=== PATIENT | female | born 1995 | race Caucasian/White ===

== ENCOUNTER → 2018-01-07 10:40 | Outpatient (CLI) | payer OTHER, SELFPAY ==
--- NOTE | 2018-01-07 10:42 | US_ITS ---
STUDY: ULTRASOUND - URINARY BLADDER REASON FOR EXAM: Female, 22 years old. Hematuria. Burning with urination. TECHNIQUE: Ultrasound evaluation of the urinary bladder was performed with real-time and static benitez-scale imaging. COMPARISON: None. FINDINGS: There is no right UVJ calculus. There is a visualized right ureteral jet. There is no left UVJ calculus. There is a visualized left ureteral jet. The distended volume of the urinary bladder is 352.3 ml. The empty volume of the urinary bladder is 28.2 ml. The bladder wall is within normal limits. The bladder wall measures . There is no demonstrated bladder wall mass lesion. There are no demonstrated bladder calculi. US/Post Void Residual Bladder IMPRESSION: Normal ultrasound of the urinary bladder. Electronically Signed: Crispin Beth MD at 16:04 EST Tel [phone], Service support ,
== END ==
PROVIDERS: Family Provider Family Medicine; PCP Family Medicine; Visit Provider Urology
DX: R30.0 Dysuria (principal); R31.9 Hematuria, unspecified
CPT/HCPCS: 51798

== ENCOUNTER → 2018-06-11 17:06 | Outpatient (CLI) | payer OTHER, SELFPAY ==
[2018-06-11 18:04] LABS: Fetal Fibronectin Negative
== END ==
PROVIDERS: Family Provider Family Medicine; PCP Family Medicine; Visit Provider Advanced Practice Midwife
DX: O26.892 Other specified pregnancy related conditions, second trimester (principal); N89.8 Other specified noninflammatory disorders of vagina; O47.9 False labor, unspecified; Z3A.00 Weeks of gestation of pregnancy not specified
CPT/HCPCS: 82731

== ENCOUNTER 2018-08-29 05:14 | Inpatient (IN) | payer OTHER, SELFPAY ==
[2018-08-29] VITALS (25 sets, daily range): BP systolic 80–126; BP diastolic 37–74; PULSE 70–97; RESP 14–20; TEMP 36.1–36.9; O2SAT 98–100; BMI 30.4
[2018-08-29] MEDS: Lactated Ringers 1,000 ML 999 ML IV ×2 (05:30→10:40)
[2018-08-29 06:37] LABS: Absolute Lymphocyte Count 2.13 X10^3/ul (0.83-4.51); Absolute Neutrophil Count 8.5 X10^3/uL (2.0-7.7); Basophil# 0.02 X10^3/uL; Basophil% 0.2 % (0-1); Differential Indicated SCAN CRITERIA MET; Eosinophil# 0.23 X10^3/uL; Eosinophils% 1.9 % (0-5); Hematocrit 32.9 % (37-47); Hemoglobin 11.3 g/dl (12.0-15.0); Lymphocyte # 2.13 X10^3/ul (4.0); Mean Corp Hgb Conc 34.3 g/gl (32-36); Mean Corpuscular Hgb 30.5 pg (27.0-32.0); Mean Corpuscular Volume 88.7 fL (81-99); Mean Platelet Vol. 8.6 fl (6.2-12.0); Monocyte# 0.86 X10^3/uL; Monocyte% 7.3 % (0-10); Neutrophil # 8.46 X10^3/uL (2.7-7.7); Neutrophil % 71.3 % (47-70); POSITIVE COUNT NO; POSITIVE DIFFERENTIAL NO; POSITIVE MORPHOLOGY YES; Platelet Count 200 K/mm3 (150-450); RBC Distribution Width CV 13.3 % (11.6-14.6); RBC Distribution Width SD 41.1 fl (35.1-43.9); Red Blood Count 3.71 M/mm3 (4.2-5.4); White Blood Count 11.9 K/mm3 (4.4-11.0)
[2018-08-29 06:38] LABS: Platelet Estimate ADEQUATE (ADEQ); Red Cell Morphology NORM C+C NORMAL (NORM C&C)
[2018-08-29] MEDS: Lactated Ringers 1,000 ML 150 ML IV (06:55)
[2018-08-29] MEDS: Sodium Citrate/Citric Acid 30 ML UDC PO (07:42)
[2018-08-29] MEDS: Cefazolin 2 GM in 0.9% Normal Saline 100 ML IV (07:55)
[2018-08-29] MEDS: Oxytocin 30 units/NS 500 ml 30 UNITS/500 ML IV.SOLN 167 UNITS IV (08:18)
--- NOTE | 2018-08-29 09:20 | OP.PCM_ITS ---
Delivery Classification: Scheduled Final CLAUS: 09/05/18 Gestational age: 39 Weeks and 0 Days Indications for : Breech Description of Procedure: Patient taken to OR where spinal anesthesia was placed. She was prepped and draped in normal sterile fashion in a dorsal lithotomy position with a leftward tilt. After ensuring adequacy of anesthesia the Pfannensteil skin incision was made and carried through to the underlying fascia with a bovie. The fascia was incised in the midline and carried laterally with the Rodriguez scissors. The rectus muscles were in the midline and the peritoneum was entered bluntly. The bladder flap was dissected down carefully with the Metzenbaum scissors and blunt dissection. The uterus was incised in a transverse fashion and then incision extended with cephalocaudad traction. The fetus was breech. Her buttocks were grasped and elevated to the uterine incision. She was delivered with typical breech maneuvers. The 3VC cord was clamped and cut after 30 second delay and the handed off to the waiting RN. The placenta was delivered w/ gentle traction and fundal massage and the uterus was exteriorized and cleared of all clots and debris. The uterine incision was closed with 1 vicryl suture in a running locked fashion. The bovie was used to further obtain further hemostasis of the uterine incision. A second imbricating layer of monocryl was placed. The uterus was returned to the peritoneal cavity. The pelvis was irrigated & then cleared of all clots and debris. The uterine incision was reexamined and found to be hemostatic. Some anuj was placed over the uterine incision due to the denuded areas. The parietal peritoneum was reapproximated with running 3 vicryl suture. The fascia was closed with looped PDS suture in a running standard fashion. The subcutaneous tissue was examined & any bleeding bovie cauterized. The subcutaneous tissue was reapproximated with plain gut suture. The skin was closed in a subcuticular fashion by the DEVELOPMENT ADMINISTRATOR with me present in the labor and delivery suite. I performed the remainder of the procedure w/ assistance. Amniotic Membrane Rupture Type: Artificial Amniotic Fluid Description: Clear Placenta Disposition: [facility] Drain: Benson to straight drain Cord Entanglement: None Nuchal Cord Compression: Without compression Cord Vessel Description: 3 Vessels Esitmated Blood Loss (ml): 600ml Gender: Female (1 minute): 6 (5 minute): 9 Delayed cord clamping: Yes Pre-op Antibiotic Given: Ancef 2 grams IV x1 Complications: None
[2018-08-29] MEDS: Methylergonovine 0.2 MG/ML Ampul IM (10:15)
[2018-08-29] MEDS: miSOPROStol 200 MCG Tablet 1000 MCG RECTAL (10:40)
[2018-08-29 10:58] LABS: Hematocrit 31.6 % (37-47); Hemoglobin 10.7 g/dl (12.0-15.0); Mean Corp Hgb Conc 33.9 g/gl (32-36); Mean Corpuscular Hgb 30.3 pg (27.0-32.0); Mean Corpuscular Volume 89.5 fL (81-99); Mean Platelet Vol. 8.8 fl (6.2-12.0); Platelet Count 212 K/mm3 (150-450); RBC Distribution Width CV 13.2 % (11.6-14.6); RBC Distribution Width SD 41.8 fl (35.1-43.9); Red Blood Count 3.53 M/mm3 (4.2-5.4); White Blood Count 14.1 K/mm3 (4.4-11.0)
[2018-08-29 11:02] LABS: Prothrombin Time (Protime)PT. 13.1 SECONDS (11.7-14.9); Scan Indicated on CBC? Y/N NO
[2018-08-29 11:03] LABS: Partial Thromboplast Time 26.2 Seconds (24.1-36.2)
--- NOTE | 2018-08-29 11:13 | PCM.PN.BLA ---
Progress Note Called by RN as patient was hypotensive with SBP in 90's, HR increasing, pt with symptoms of anemia. RN reported boggy uterus at U-2 with increased bleeding, and had given 1 dose of Methergine. Discussed with RN to draw stat CBC and coags, place Cytotec 1000mcg rectally, and run double concentrated pitocin. At bedside to examine pt. S: She reports lightheadedness and dizziness. She otherwise feels okay and has no specific complaints at this time O: VS- HR 101, BP 101/50, RN cycling BP's Gen- Pale appearing, comfortable Abd- Soft, ATTP, FF@U-2 - Scant dark red bleeding with fundal massage A/P: Fundus now firm and bleeding scant. Patient is pale appearing and with symptoms of anemia, will await results of stat blood draw. BP improving. Will continue to cycle BP's. Pt is okay with receiving a blood transfusion if needed/Hgb < 7. Discussed risks of a blood transfusion including allergic reactions, HIV and hepatitis infection
[2018-08-29] MEDS: Ketorolac 30 MG/ML Syringe IV ×2 (13:39→19:25)
[2018-08-29] MEDS: Lactated Ringers 1,000 ML 100 ML IV (14:43)
[2018-08-29] MEDS: 0.9% Saline Lock 10 ML Syringe IV (19:25)
[2018-08-30] VITALS (8 sets, daily range): BP systolic 113–121; BP diastolic 52–61; PULSE 62–85; RESP 16–22; TEMP 36.3–36.8; O2SAT 98–100
[2018-08-30] MEDS: Ketorolac 30 MG/ML Syringe IV ×4 (01:12→19:57)
[2018-08-30] MEDS: Lactated Ringers 1,000 ML 100 ML IV (01:13)
--- NOTE | 2018-08-30 07:23 | PCM.PN.OB ---
Subjective: Patient doing well this morning. She ambulated some in the room yesterday without difficulty. Tolerating regular diet without nausea and vomiting. Denies current fevers, chills, chest pain, shortness of breath, and leg pain. She is breast-feeding. Lochia normal. Her lightheadedness and dizziness have resolved. She feels she has to have a bowel movement this morning. Stokes in place. - Physical Exam General: Alert, Oriented x3 HEENT: Atraumatic Lungs: - - No increased resp effort Abdomen: Soft, - - ATTP, FF@U-2, dressing in place with scant shadowing and no surrounding swelling or erythema Extremities: No Calf Tenderness Skin: No rashes Neurological: Neuro grossly intact Psych/Mental Status: Normal Affect, Appropriate Vital Signs Temp Pulse Resp BP Pulse Ox 98.1 F 76 18 121/59 H 100 08/30/18 01:00 08/30/18 01:00 08/30/18 01:00 08/30/18 01:00 08/30/18 01:00 Oxygen Delivery Method Room Air Weight: 183 lb Body Mass Index (BMI) 30.4 Intake and Output for Last 24 Hours 08/28/18 08/29/18 08/30/18 23:59 23:59 23:59 Intake Total 1502 / 1502 Output Total 600 / 600 Balance 902 / 902 Laboratory Tests Past 24 Hrs 08/29/18 08/29/18 10:45 10:45 WBC 14.1 H RBC 3.53 L Hgb 10.7 L Hct 31.6 L MCV 89.5 MCH 30.3 MCHC 33.9 RDW 13.2 RDW Differential 41.8 Plt Count 212 MPV 8.8 PT 13.1 INR 1.0 APTT 26.2 Medical Necessity - Tobacco Use Smoking Status: Former smoker Assessment/Plan Patient is postop day #1 from a section. She is afebrile and vital signs are stable. Doing well. Hemoglobin was stable yesterday, and her lightheadedness and dizziness have resolved. She is breast-feeding. To d/c stokes this morning and encourage ambulation. Continue routine postoperative care.
[2018-08-30] MEDS: 0.9% Saline Lock 10 ML Syringe IV ×3 (08:05→19:58)
[2018-08-30 08:16] LABS: Hematocrit 27.5 % (37-47); Hemoglobin 9.3 g/dl (12.0-15.0); Mean Corp Hgb Conc 33.8 g/gl (32-36); Mean Corpuscular Hgb 30.2 pg (27.0-32.0); Mean Corpuscular Volume 89.3 fL (81-99); Mean Platelet Vol. 8.3 fl (6.2-12.0); Platelet Count 138 K/mm3 (150-450); RBC Distribution Width CV 13.7 % (11.6-14.6); RBC Distribution Width SD 44.4 fl (35.1-43.9); Red Blood Count 3.08 M/mm3 (4.2-5.4); White Blood Count 9.8 K/mm3 (4.4-11.0)
[2018-08-30 08:27] LABS: Scan Indicated on CBC? Y/N NO
--- NOTE | 2018-08-30 08:40 | NURSING ---
Patient called nurse to room requesting to get up to bathroom. Feeling to urge for first BM after delivery. Nurse assisted patient to the bathroom. After a few minutes patient c/o feeling weak and dizzy, wanting some juice before returning to bed. States this feeling happens a lot at home when she needs to eat. Apple & orange juice given. Pt also ate jello. Second Nurse, Nicole Galeano RN, called to assist getting patient returned to bed. Vitals checked and normal for patient. BP 114/53 which was consistent with her normal. Pt ordered breakfast. resting & feeling better. Wanted up to chair but Nurse encouraged her back to bed until her symptoms resolve. Hgb results from am are 9.3. Will continue to assess and monitor
[2018-08-31 02:00] VITALS: BP 117/69; PULSE 73; RESP 16; TEMP 36.6
[2018-08-31] MEDS: Ketorolac 30 MG/ML Syringe IV ×2 (02:00→08:22)
[2018-08-31] MEDS: 0.9% Saline Lock 10 ML Syringe IV ×2 (02:01→08:22)
[2018-08-31 08:12] VITALS: BP 112/65; PULSE 69; RESP 16; TEMP 36.3; O2SAT 98
--- NOTE | 2018-08-31 12:03 | DCINST_ITS ---
Discharge Diet: No Restrictions Discharge Activity: May not drive while taking narcotic pain medications., May Shower May resume sexual activity in: 4-6 weeks Weight Bearing Status: Full weight bearing Lifting Restrictions: No more than 10 lbs Call your doctor if your incision/area has: Continuous Slow Oozing, Sudden Increased Bleeding, Increased Pain/ Swelling, Increased Redness, Foul Smelling Discharge Call your doctor if you observe: Fever of 101 or Higher, Numbness or Tingling, Inability to urinate, Inability to have a bowel movement, Using more than one pad per hour, Shortness of breath, Dizziness, Fainting spells, Swelling in the ankles, Chest pain, Increased palpitations (irregular heartbeat), Calf discomfort, Uncontrolled pain Cleanse incision/area with: Soap & Water, Keep Dressing Clean & Dry - Remove dressing after 5 days Additional Instructions: If you experience any of the following, contact your healthcare provider. * Bleeding that soaks a pad every hour for 2 hours * Fever 100.4 or higher * Unrelieved incision or abdominal pain * Swelling, redness, discharge or bleeding from your incision or episiotomy site * Your incision begins to separate * Problems urinating (including inability to urinate or burning while urinating). * Visual changes * Severe headache * Flu-like symptoms * Pain or redness in one of both of your breasts * Pain, warmth, tenderness or swelling in your legs, especially the calf area * Frequent nausea and vomiting * Symptoms of depression or anxiety If you experience any of the following, call 911 or go to the nearest Emergency Room. * Chest pain * Problems breathing * Seizure activity * Partial or complete paralysis of a body part, slurred speech, weakness or drooping of the face, or a sudden inability to walk or hold your balance Allergies/Adverse Reactions: Allergies No Known Allergies Allergy (Verified 08/26/18 09:11) Medications to take at Discharge Famotidine [Pepcid AC] 10 mg PO BID 08/26/18 Ferrous Sulfate [Iron] 1 mg PO QODAY 08/26/18 Vit Calc,Iron,Folic [ Vitamins] 1 tab PO DAILY 08/26/18 Terconazole [Terazol 7] 45 gm VG DAILY 08/26/18 l Acidophil/B Lactis/B Longum [Florajen3 Capsule] 1 cap PO DAILY 08/26/18 Please Follow Up With: Charli Elise When: 2 weeks for incision check and 6 weeks for visit. Primary Care Physician: Mc Millan MD [Primary Care Provider] - Test Results: Test results from this visit will be discussed in further detail at your follow- up appointment, if applicable.
--- NOTE | 2018-08-31 12:03 | PCM.DC.SUM ---
Discharge Date and Diagnosis Date of Admission: 08/29/18 Date of Discharge: 08/31/18 - Primary Discharge Diagnosis Section Hospital Course and Treatment Operations: - - Low Transverse Section Summary of Care Provided: The patient is a 23 year old F [] Discharge Diet: No Restrictions Discharge Activity: May not drive while taking narcotic pain medications., May Shower May resume sexual activity in: 4-6 weeks Weight Bearing Status: Full weight bearing Call your doctor if your incision/area has: Continuous Slow Oozing, Sudden Increased Bleeding, Increased Pain/ Swelling, Increased Redness, Foul Smelling Discharge Call your doctor if you observe: Fever of 101 or Higher, Numbness or Tingling, Inability to urinate, Inability to have a bowel movement, Using more than one pad per hour, Shortness of breath, Dizziness, Fainting spells, Swelling in the ankles, Chest pain, Increased palpitations (irregular heartbeat), Calf discomfort, Uncontrolled pain Cleanse incision/area with: Soap & Water, Keep Dressing Clean & Dry - Remove dressing after 5 days Home Medications: Medications to take at Discharge Famotidine [Pepcid AC] 10 mg PO BID 08/26/18 Ferrous Sulfate [Iron] 1 mg PO QODAY 08/26/18 Vit Calc,Iron,Folic [ Vitamins] 1 tab PO DAILY 08/26/18 Terconazole [Terazol 7] 45 gm VG DAILY 08/26/18 l Acidophil/B Lactis/B Longum [Florajen3 Capsule] 1 cap PO DAILY 08/26/18 Primary Care Physician: Mc Millan MD [Primary Care Provider] - Please Follow Up With: Charli Elise Medical Necessity - Tobacco Use Smoking Status: Former smoker Meaningful Use Info Meaningful Use Diagnoses (Choose all that apply): None applicable
--- NOTE | 2018-08-31 12:06 | PCM.PN.OB ---
Subjective: Doing well per patient and nursing staff. Ambulating and taking PO without difficulty. Voiding and passing flatus, BM since delivery. Previously dizziness but has resolved. Denies any chest pain, shortness of breath leg pain, increased bleeding or clots. D/C home today. - Physical Exam General: Alert, Oriented x3, Cooperative HEENT: Atraumatic, Normocephalic Lungs: Clear to auscultation, No rhonchi, No wheeze Cardiovascular: Regular rate, Regular Rhythm, No murmurs Abdomen: Bowel Sounds Present, Soft, - - Fundus firm 3 below U. Dressing clean and dry over incision, small amount of old dry blood. Extremities: No edema, - - Nadja's negative bilaterally Neurological: Deep Tendon Reflexes 2+/4 and Symmetrical Psych/Mental Status: Normal Affect, Appropriate Vital Signs Temp Pulse Resp BP Pulse Ox 97.4 F L 69 16 112/65 98 08/31/18 08:12 08/31/18 08:12 08/31/18 08:12 08/31/18 08:12 08/31/18 08:12 Oxygen Delivery Method Room Air Weight: 183 lb Body Mass Index (BMI) 30.4 Intake and Output for Last 24 Hours 08/29/18 08/30/18 08/31/18 23:59 23:59 23:59 Intake Total 1502 / 1502 816 / 816 Output Total 600 / 600 3550 / 3550 Balance 902 / 902 -2734 / -2734 Medical Necessity - Tobacco Use Smoking Status: Former smoker Assessment/Plan A:LTCS POD #2 P: 1) Routine and post op instructions given. 2) instructions given. 3) D/C home today. Follow up in 2 weeks for incision check and 6 weeks for visit. 4) Remove abomdinal incision dressing in 5 days (7th day). 5) To continue Ferrous Sulfate PO once daily, Hgb 9.3, patient asymptomatic at this time. 6) Patient declines Percocet Rx for pain. Discussed if needs medication she will need to come to office for RX, she voiced understanding and declines.
[2018-08-31 14:00] VITALS: BP 111/72; PULSE 87; RESP 16; TEMP 36.2; O2SAT 98
[2018-08-31] MEDS: Ibuprofen 600 MG Tablet PO (19:17)
[2018-08-31 20:28] VITALS: BP 123/73; PULSE 97; RESP 16; TEMP 36.8; O2SAT 97
[2018-09-01] MEDS: Acetaminophen 500 MG Tablet 1000 MG PO (00:21)
[2018-09-01 02:35] VITALS: BP 108/58; PULSE 84; RESP 16; TEMP 36.5; O2SAT 96
[2018-09-01] MEDS: Ibuprofen 600 MG Tablet PO ×2 (07:45→13:15)
--- NOTE | 2018-09-01 08:29 | PCM.DC.SUM ---
Discharge Date and Diagnosis Date of Admission: 08/29/18 Date of Discharge: 09/01/18 - Primary Discharge Diagnosis LTCS for Breech Presentation - Secondary Discharge Diagnosis Anemia Hospital Course and Treatment Operations: - - Low Transverse Section Procedures: None Summary of Care Provided: The patient is a 23 year old F [who presented at 39 weeks for scheduled LTCS for Breech Presentation. course overall uncomplicated, patient noted to have anemia and was treated with PO Iron supplementation and discharged to home.] Discharge Diet: No Restrictions Discharge Activity: May not drive while taking narcotic pain medications., May Shower May resume sexual activity in: 4-6 weeks, 6-8 weeks Weight Bearing Status: Full weight bearing Call your doctor if your incision/area has: Continuous Slow Oozing, Sudden Increased Bleeding, Increased Pain/ Swelling, Increased Redness, Foul Smelling Discharge Call your doctor if you observe: Fever of 101 or Higher, Numbness or Tingling, Inability to urinate, Inability to have a bowel movement, Using more than one pad per hour, Shortness of breath, Dizziness, Fainting spells, Swelling in the ankles, Chest pain, Increased palpitations (irregular heartbeat), Calf discomfort, Uncontrolled pain Cleanse incision/area with: Soap & Water, Keep Dressing Clean & Dry - Remove dressing after 5 days Home Medications: Medications to take at Discharge Famotidine [Pepcid AC] 10 mg PO BID 08/26/18 Ferrous Sulfate [Iron] 1 mg PO QODAY 08/26/18 Vit Calc,Iron,Folic [ Vitamins] 1 tab PO DAILY 08/26/18 l Acidophil/B Lactis/B Longum [Florajen3 Capsule] 1 cap PO DAILY 08/26/18 Acetaminophen [Tylenol] 1,000 mg PO Q8H PRN tablet 08/31/18 Primary Care Physician: Mc Millan MD [Primary Care Provider] - Please Follow Up With: Charli Elise When: 2 weeks for incision check and 6 weeks PP Patient Condition:: Good Medical Necessity - Tobacco Use Smoking Status: Former smoker Meaningful Use Info Meaningful Use Diagnoses (Choose all that apply): None applicable
--- NOTE | 2018-09-01 08:44 | PN.OBGYN_ITS ---
Subjective: Patient standing up near bedside, preparing to take a shower. Patient reports that she has no issues at this time. Incision pain is well controlled. Patient reports some mild itching and rash from the surgical tape that was used for the surgery. Patient interested in medication that would help the rash heal. Patient denies any other issues at this time; reports desire to be discharged to home. Reports infant has improved, latch over the last few feedings has improved. Objective: Nipples with a few ecchymoses at tips, no erythema noted. Abdomen NT x 4 quadrants, incisional dressing dry and intact ~10cm x 12 cm erythematous dry plaque rash c/w contact dermatitis rash noted on abdomen above incision and dressing on maternal right Extremities without edema, negative calf tenderness to palpation, +2/4 reflexes in LE scant rubra lochia - Physical Exam General: Alert, Oriented x3, Cooperative HEENT: Atraumatic, Normocephalic Neck: Supple Lungs: Normal air movement Cardiovascular: Regular rate, No murmurs Abdomen: Soft, Non Tender Extremities: No edema, Capillary Refill Less than 3 Seconds Skin: No rashes, No breakdown Musculoskeletal: No Tenderness to Palpation of Joints or Extremities Neurological: Cranial nerves II-XII grossly intact Psych/Mental Status: Normal Affect, Appropriate Vital Signs Temp Pulse Resp BP Pulse Ox 97.7 F L 84 16 108/58 L 96 09/01/18 02:35 09/01/18 02:35 09/01/18 02:35 09/01/18 02:35 09/01/18 02:35 Oxygen Delivery Method Room Air Weight: 183 lb Body Mass Index (BMI) 30.4 Intake and Output for Last 24 Hours 08/30/18 08/31/18 09/01/18 23:59 23:59 23:59 Intake Total 816 / 816 Output Total 3550 / 3550 Balance -3964 / -2734 Medical Necessity - Tobacco Use Smoking Status: Former smoker Assessment/Plan 23 y/o s/p LTCS for Breech Presentation, POD #3, Anemia P: 1) Patient discharged to home pending discharge 2) Anticipatory health teaching done 3) Rx Hydrocortisone cream 0.5% to abdomen BID PRN for rash 4) RTC to [facility] in 2 weeks and 6 week PP PRN Aisha Finnegan APRN-STORMY
[2018-09-01 10:00] VITALS: BP 103/60; PULSE 63; RESP 18; TEMP 37.2
--- NOTE | 2018-09-01 11:10 | NURSING ---
reddened splotchy area above incision. complaining of itching. Hector andre.
[2018-09-01 14:15] VITALS: BP 123/61; PULSE 90; RESP 18; TEMP 36.5
== END 2018-09-01 14:15 | disposition home or self-care (01) | DRG 788 ==
PROVIDERS: Admitting Provider Obstetrics & Gynecology; Family Provider Family Medicine; PCP Family Medicine; Visit Provider Obstetrics & Gynecology
PROC: 10D00Z1 Extraction of Products of Conception, Low, Open Approach (ICD-10-PCS; CPT 59514; principal; 2018-08-29 07:15)
DX: O32.1XX0 Maternal care for breech presentation, not applicable or unspecified (principal); O90.81 Anemia of the puerperium; N85.8 Other specified noninflammatory disorders of uterus; Z3A.39 39 weeks gestation of pregnancy; Z37.0 Single live birth; Z87.891 Personal history of nicotine dependence
CPT/HCPCS: 85025; 85027; 85610; 85730; 86850; 86900; 99218; J7040; J7120; A4216; G0378; J2405

== ENCOUNTER 2018-09-02 15:40 | Outpatient (CLI) | payer OTHER, SELFPAY | END 2018-09-02 17:00 | disposition home or self-care (01) | LOC: WPOUT 15:41 → WP 15:41 | PROVIDERS: Family Provider Family Medicine; PCP Family Medicine; Referring Provider Obstetrics & Gynecology; Visit Provider Obstetrics & Gynecology | DX: Z39.1 Encounter for care and examination of lactating mother (principal) | CPT/HCPCS: 96152 ==

== ENCOUNTER → 2018-11-07 17:04 | Outpatient (CLI) | payer OTHER, SELFPAY ==
[2018-08-29 05:40] VITALS: BMI 30.4
[2018-11-07 18:00] LABS: D-Dimer Quantitative (DVT/PE) 0.72 FEU/ug/m (0.27-0.49)
--- OUTSIDE RECORDS SUMMARY | 2019-02-11 07:27 | XMS RPT_ITS ---
:1995 Author Organization OHIP Support Name Relationship Address Phone [address] + [place] [address] PARVIZ DOWD Unavailable [address] [place] [address] [place] Unavailable [facility] [address] + [place] [address] + [place] [address] PARVIZ DOWD Unavailable [address] [place] [address] [place] Unavailable [address] + [place] [address] + [place] [address] PARVIZ DOWD Unavailable [address] [place] [address] [place] Unavailable [facility] [address] + [place] [address] + [place] [address] PARVIZ DOWD Unavailable [address] [place] [address] [place] Unavailable [facility] [address] + [place] [address] PANCHITO REYNA Unavailable [address] + [place] [address] PARVIZ DOWD Unavailable [address] + [place] [address] [place]available [facility] + [place] [address] PANCHITO REYNA Unavailable [address] + [place] [address] PARVIZ DOWD Unavailable [address] + [place] [address] [facility] Unavailable [facility] + [place] [address] Care Team Providers Name Role Phone GREGORIO KARMON Referring Unavailable GREGORIO, KARMON Referring Unavailable GREGORIO, KARMON Attending Unavailable SHU COLLAZO (CNM) Attending Unavailable GREGORIO, KARMON Attending Unavailable GREGORIO, KARMON Referring Unavailable KALYANI BROWN ([facility]) Attending Unavailable KALYANI BROWN ([facility]) Referring Unavailable JELANI DELGADO ([facility]) Attending Unavailable GREGORIO, KARMON Attending Unavailable GREGORIO, KARMON Referring Unavailable GREGORIO, KARMON Referring Unavailable SHU COLLAZO (CN) Attending Unavailable KAYCEE VASQUEZ Attending Unavailable GREGORIO, KARMON Referring Unavailable GREGORIO, KARMON Attending Unavailable GREGORIO, KARMON Referring Unavailable GREGORIO, KARMON Attending Unavailable CHIQUI BRANDIN (CNM) Attending Unavailable JASMIN COLLAZOSSICA (CNM) Attending Unavailable CHIQUI BRANDIN (CNM) Attending Unavailable GREGORIO, KARMON Attending Unavailable GREGORIO, KARMON Referring Unavailable CHIQUI, BRANDIN (CNM) Attending Unavailable CHIQUI, BRANDIN (CNM) Referring Unavailable STEPHANIE SHU (CNM) Attending Unavailable GREGORIO, KARMON Attending Unavailable CHIQUI, BRANDIN (CNM) Attending Unavailable GREGORIO, KARMON Attending Unavailable GREGORIO, KARMON Attending Unavailable GREGORIO, KARMON Attending Unavailable STEPHANIE SHU (CNM) Attending Unavailable GREGORIO, KARMON Attending Unavailable GREGORIO, KARMON Attending Unavailable GREGORIO, KARMON Attending Unavailable GREGORIO, KARMON Referring Unavailable IVÁN RODRIGUEZ ([facility]) Attending Unavailable IVÁN RODRIGUEZ ([facility]) Referring Unavailable IVÁN RODRIGUEZ ([facility]) Referring Unavailable IVÁN RODRIGUEZ ([facility]) Referring Unavailable BOO MILLAN Referring Unavailable IVÁN RODRIGUEZ ([facility]) Attending Unavailable IVÁN RODRIGUEZ ([facility]) Attending Unavailable IVÁN RODRIGUEZ ([facility]) Referring Unavailable Iván Rodriguez Attending Unavailable Iván Rodriguez Referring Unavailable Boo Millan Primary Care Unavailable Boo Millan Primary Care Unavailable Andre Mccabe Attending Unavailable Eugene Caldwell Attending Unavailable Eugene Caldwell Referring Unavailable ElderBoo cox Primary Care Unavailable Brandin Florian Attending Unavailable ElderBoo cox Primary Care Unavailable Kingston Floriana Referring Unavailable Dasia Perkins Admitting Unavailable Dasia Perkins Attending Unavailable Dasia Perkins Referring Unavailable ElderBoo cox Primary Care Unavailable Dasia Perkins Attending Unavailable Dasia Perkins Referring Unavailable ElderBoo cox Primary Care Unavailable PROBLEMS PROBLEMS DATE TYPE CONDITION / CODE ATTENDING STATUS SOURCE 11/07/2018 Unknown R94.31 - Abnormal Iván Rodriguez Active [facility] [ECG] [EKG] / Hospital R94.31(ICD-10) Repository 11/07/2018 Unknown R00.2 - Palpitations / Iván Rodriguez Active [facility] R00.2(ICD-10) [facility] Repository 11/07/2018 Unknown R42 - Dizziness and Iván Rodriguez Active [facility] g[facility]iness / Community R42(ICD-10) Hospital Repository 11/07/2018 Active Palpitations / NA Active [facility] R00.2(ICD-10) [facility] Main [place] Repository 11/07/2018 Active Abnormal NA Active [facility] Main (ECG) (EKG) / [place] R94.31(ICD-10) Repository 11/07/2018 Active Dizziness and NA Active [facility] giddiness / Clinic Main R42(ICD-10) [place] Repository 09/02/2018 Unknown L25.9 - Unspecified Dasia Perkins Active [facility] contact dermatitis, Community unspecified cause / Hospital L25.9(ICD-10) Repository 06/17/2018 Active Encounter for Active [facility] supervision of normal Clinic Main first , third [place] trimester / Repository Z34.03(ICD-10) 06/17/2018 Active 28 weeks gestation of NA Active [facility] / Clinic Main Z3A.28(ICD-10) [place] Repository 06/12/2018 Unknown N89.8 - Other Chiqui, Brandin Active [facility] specified [facility] noninflammatory Hospital disorders of vagina / Repository N89.8(ICD-10) 06/12/2018 Unknown O47.9 - False labor, Chiqui, Brandin Active [facility] unspecified / Community O47.9(ICD-10) Hospital Repository 06/12/2018 Unknown O26.892 - Other Chiqui, Brandin Active [facility] specified [facility] related conditions, Hospital second trimester / Repository O26.892(ICD-10) 03/27/2018 Active Encounter for NA Active [facility] supervision of normal Clinic Main first , [place] unspecified trimester Repository / Z34.00(ICD-10) 02/27/2018 Active Other chest pain / NA Active [facility] R07.89(ICD-10) [facility] Main [place] Repository 02/27/2018 Active Shortness of breath / NA Active [facility] R06.02(ICD-10) [facility] Main [place] Repository 01/28/2018 Active Unknown / UNK(Unknown) DASIA PERKINS Active [facility] Main [place] Repository 01/03/2018 Active Other specified NA Active [facility] related Clinic Main conditions, [place] unspecified trimester Repository / O26.899(ICD-10) 01/03/2018 Active Pelvic and perineal NA Active [facility] pain / R10.2(ICD-10) [facility] Main [place] Repository PROCEDURES PROCEDURES No Procedure Records FoundRESULTS RESULTS PROGRESS Observed: 12/05/2018 Status: COMPLETED Source: [place] 2:14 PM [facility] REPOSITORY HNO ID: [id number] Author: Iávn (Natalia) Carloz Service: (none) Author Type: Nurse Practitioner Type: Progress Notes Filed: 12/05/2018 2:33 PM Note Text: HPI/CC: [place] Watkins is an 23 year old female who presents for followup of depression and anxiety treatment. Since last visit patient reports mood has improved and anxiety has decreased. Still has some episodes of feeling anxious but is able to talk herself out of it easier. 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 Started Zoloft slowly- now at full dose tolerating well except notes it makes her a little tired, otherwise she is happy with current medications Panic hx: Yes, none recently Sleep Problems: improved, now sleeping without difficulty Appetite: adequate Support system: family and boyfriend Positive health behaviors: reserving a day or two a week for herself and continuing to have a date night with her boyfriend. Again looking forward to going back to work. ROS as above, otherwise non-contributory. Reviewed PMHx, PSHx, social Hx, medications and allergies. PHYSICAL EXAMINATION: BP 134/84 Pulse 82 Temp 36.9 ?C (98.4 ?F) (Temporal Artery) Resp 16 Wt 83 kg (183 lb) SpO2 98% BMI 30.12 kg/m? Appearance: well dressed well groomed, cooperative and pleasant Behavior: good eye contact Speech: fluent and coherent Mood: happy Affect: appropriate Perceptions: none Thought process: goal directed Thought Content: normal Intelligence level: normal Insight: good Judgment: good Lungs: Lungs clear to auscultation. No wheezing, rhonchi, rales Heart: RRR without murmur, gallop, or rubs. No ectopy ASSESSMENT/PLAN: 1. Anxiety - ICD9: 300.00, ICD10: F41.9 (primary diagnosis) - Improved - Continue Zoloft - SERTRALINE 50 MG TABLET - Counseling as scheduled - Follow up in 6 months, sooner for new or worsening symptoms 2. 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 Potential red flag symptoms discussed with the patient. Reviewed appropriate action plan to take if red flag symptoms occur. Patient agreeable to treatment plan. KAROLINA CorbettOV Observed: 12/05/2018 Status: COMPLETED Source: [place] 2:00 PM [facility] REPOSITORY Office Visit (INTMWS) FLOR[place] WATKINS ([id number]) 1995 F Date Time Provider Department 12/05/18 2:00 PM IVÁN RODRIGUEZ ([place]) INTMWS During your visit today, we recorded the following information about you: Temperature Pulse Respiration Blood pressure 98.4 degrees 82/minute 16/minute 134/84 Weight 83 kg Iván Rodriguez APRN.CNP 12/05/2018 2:33 PM Signed HPI/CC: [place] Batresrell is an 23 year old female who presents for followup of depression and anxiety treatment. Since last visit patient reports mood has improved and anxiety has decreased. Still has some episodes of feeling anxious but is able to talk herself out of it easier. 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 Started Zoloft slowly- now at full dose tolerating well except notes it makes her a little tired, otherwise she is happy with current medications Panic hx: Yes, none recently Sleep Problems: improved, now sleeping without difficulty Appetite: adequate Support system: family and boyfriend Positive health behaviors: reserving a day or two a week for herself and continuing to have a date night with her boyfriend. Again looking forward to going back to work. ROS as above, otherwise non-contributory. Reviewed PMHx, PSHx, social Hx, medications and allergies. PHYSICAL EXAMINATION: BP 134/84 Pulse 82 Temp 36.9 ?C (98.4 ?F) (Temporal Artery) Resp 16 Wt 83 kg (183 lb) SpO2 98% BMI 30.12 kg/m? Appearance: well dressed well groomed, cooperative and pleasant Behavior: good eye contact Speech: fluent and coherent Mood: happy Affect: appropriate Perceptions: none Thought process: goal directed Thought Content: normal Intelligence level: normal Insight: good Judgment: good Lungs: Lungs clear to auscultation. No wheezing, rhonchi, rales Heart: RRR without murmur, gallop, or rubs. No ectopy ASSESSMENT/PLAN: 1. Anxiety - ICD9: 300.00, ICD10: F41.9 (primary diagnosis) - Improved - Continue Zoloft - SERTRALINE 50 MG TABLET - Counseling as scheduled - Follow up in 6 months, sooner for new or worsening symptoms 2. 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 Potential red flag symptoms discussed with the patient. Reviewed appropriate action plan to take if red flag symptoms occur. Patient agreeable to treatment plan. Iván Rodriguez APRN.NATALIA Referring Provider: IVÁN RODRIGUEZ ([facility]) [[id number]] Allergies As of Date: 12/05/2018 Noted Allergy Reaction SEASONAL ALLERGIES 04/28/2009 Date Reviewed: 12/05/2018 Reviewed by: Taylor Bailon Ma - Fully Assessed Reason for Visit: Recheck [92] Cmt: Medication follow up Primary Visit Diagnosis:Anxiety [F41.9] Other Visit Diagnosis:Post depression [O99.345, F53.0] Order(s):sertraline (ZOLOFT) 50 mg tabletTake 1 tablet by mouth once daily.Disp: 30 tabletRfl: 5 Prescriptions as of 12/05/2018 Sig: SERTRALINE 50 MG TABLET Take 1 tablet by mouth once d* PERFLUTREN LIPID MICROSPHERES* Inject 1.3 mL intravenously a* NORGESTIMATE 0.25 MG-ETHINYL * Take 1 tablet by mouth once d* PROBIOTIC ORAL Take by mouth. FAMOTIDINE 10 MG TABLET Take 1 tablet by mouth twice * VIT NO.116-IRON 28 M* Take 1 capsule by mouth once * Problem List As Of Date 12/05/2018 Noted Resolved Nondisplaced fracture of triquetral bone of rig*INVALID FOR*10/30/2013 Dysmenorrhea in the adolescent [N94.6] INVALID FOR*01/28/2018 Constipation [K59.00] INVALID FOR* More... Chronic seasonal allergic rhinitis [J30.2] INVALID FOR* Spotting in early [O26.859] INVALID FOR*01/28/2018 More... Family history of congenital heart defect [Z82.*INVALID FOR*09/11/2018 More... History of hematuria [Z87.448] INVALID FOR* More... Patient requested diagnostic testing [Z01.89] INVALID FOR*01/28/2018 More... Vaginal yeast infection [B37.3] INVALID FOR*09/11/2018 More... Anemia during in third trimester [O99*INVALID FOR*09/11/2018 More... Breech presentation with problem [O32*INVALID FOR*09/11/2018 Prescriptions ordered this encounter Disp Refills Start End SERTRALINE 50 MG TABLET 30 t* 5 12/05/2018 Route: ORAL Sig: Take 1 tablet by mouth once daily. Medications Discontinued During This Encounter sertraline (ZOLOFT) 50 mg tablet 30 t* 1 11/14/2018 12/05/2018 Route: ORAL Sig: Take 1 tablet by mouth once daily. Disc: Reason for discontinue is not on file. Disposition: Return in about 6 months (around 06/04/2019). Follow-up and Disposition History Recorded Encounter Status:Closed by IVÁN RODRIGUEZ CNP on 12/05/18 PROGRESS Observed: 11/14/2018 Status: COMPLETED Source: [place] 1:33 PM [facility] [place] REPOSITORY HNO ID: [id number] Author: Iván (Natalia) Carloz Service: (none) Author Type: Nurse Practitioner Type: Progress Notes Filed: 11/14/2018 2:50 PM Note Text: Chief Complaint Patient presents with: Recheck: Follow up, anxiety issues, never been on medications HPI [place] Watkins is a 23 year old female who presents here today for complaints of long time anxiety and possible post- depression. Symptoms include depressed mood, insomnia, fatigue and impaired memory. She indicates that she has had anxiety since she was a kid. Reporting some OCD-like tendencies, specifically excessive hand washing and germ phobia. States hand washing has improved but still stresses about germs, not as much lately as she is so tired she doesn't care. She also notes feeling slightly disconnected from her daughter recently and reports crying for no reason. Both her mother and boyfriend have noticed a change. She denies any SI/HI. At our last visit ~1 week ago where patient presented with complaints of dizziness. Full work up including CT to rule out PE given recent and control use, was unremarkable. Today she reports some of the dizziness is improved but still having some palpitations. Current symptoms Mood: The patient denies symptoms related to debi. Panic: Pt reports Palpitations, Chest discomfort, Feeling dizzy and SOB Sleep: difficulty falling asleep Alcohol use: does not drink any alcohol Drug use: No Appetite: fair Stresses: Denies any major stressor. Had baby girl ~2 months ago Suicidal Thoughts: No suicidal ideation, intent or plan Support: Comes from multiple sources including family and boyfriend Counseling: No Personal mental health hx: no diagnosis, but described above. . Medication history: none Family mental health hx: grandmother with anxiety/depression on Zoloft ROS as above, otherwise non-contributory. Reviewed PMHx, PSHx, social Hx, medications and allergies. PHYSICAL EXAM BP 128/76 Pulse 80 Temp 37 ?C (98.6 ?F) (Temporal Artery) Resp 16 Wt 78.9 kg (174 lb) SpO2 99% BMI 28.64 kg/m? Appearance: well dressed well groomed, cooperative and pleasant Behavior: good eye contact and slightly anxious Speech: fluent and coherent Mood: Depressed, tearful Affect: labile Perceptions: none Thought process: goal directed Thought Content: normal Intelligence level: normal Insight: fair Judgment: good ASSESSMENT/PLAN: 1. Anxiety - ICD9: 300.00, ICD10: F41.9 (primary diagnosis) - Discussed concept of neurochemical imbalance wth depression/anxiety, treatment options and benefits of counseling in combination with medication - Option of Medication use discussed. Risks/benefits of antidepressants reviewed including common side effects. Start Zoloft. - Also reviewed benefits of sleep hygeine, diet and exercise - Follow-up in 3 weeks or sooner as needed - CONSULT TO PSYCHOLOGY 2. Post depression - ICD9: 648.44, 311, ICD10: F53.0 - CONSULT TO PSYCHOLOGY - Discussed concept of neurochemical imbalance wth depression/anxiety, treatment options and benefits of counseling in combination with medication - Option of Medication use discussed. Risks/benefits of antidepressants reviewed including common side effects. Start Zoloft. - Also reviewed benefits of sleep hygeine, diet and exercise - Follow-up in 3 weeks or sooner as needed - Instructed patient to contact office or [id number] after-hours promptly should condition worsen or any new symptoms appear. - Counseling Center [facility] and after hours crisis line Prescription instructions reviewed with patient as applicable. Potential red flag symptoms discussed with the patient. Reviewed appropriate action plan to take if red flag symptoms occur. Patient agreeable to treatment plan. Iván Rodriguez APRN.SUPERVISOR CRACK OFF CNOV Observed: 11/14/2018 Status: COMPLETED Source: [place] 12:40 PM [facility] REPOSITORY Office Visit (INTMWS) [place] WATKINS ([id number]) 1995 F Date Time Provider Department 12/21/18 12:40 PM IVÁN RODRIGUEZ ([employer]) INTMWS During your visit today, we recorded the following information about you: Temperature Pulse Respiration Blood pressure 98.6 degrees 80/minute 16/minute 128/76 Weight 78.9 kg Iván Rodriguez APRN.SUPERVISOR CRACK OFF 11/14/2018 1:26 PM Signed You start zoloft by taking one tablet every other day for the first week then increase to daily as prescribed. If you experience any side effects or don't like the way you are feeling on the medication please notify office and we will change to an alternative. Iván Rodriguez APRN.CNP 11/14/2018 2:50 PM Signed Chief Complaint Patient presents with: Recheck: Follow up, anxiety issues, never been on medications HPI [place] Watkins is a 23 year old female who presents here today for complaints of long time anxiety and possible post- depression. Symptoms include depressed mood, insomnia, fatigue and impaired memory. She indicates that she has had anxiety since she was a kid. Reporting some OCD-like tendencies, specifically excessive hand washing and germ phobia. States hand washing has improved but still stresses about germs, not as much lately as she is so tired she doesn't care. She also notes feeling slightly disconnected from her daughter recently and reports crying for no reason. Both her mother and boyfriend have noticed a change. She denies any SI/HI. At our last visit ~1 week ago where patient presented with complaints of dizziness. Full work up including CT to rule out PE given recent and control use, was unremarkable. Today she reports some of the dizziness is improved but still having some palpitations. Current symptoms Mood: The patient denies symptoms related to debi. Panic: Pt reports Palpitations, Chest discomfort, Feeling dizzy and SOB Sleep: difficulty falling asleep Alcohol use: does not drink any alcohol Drug use: No Appetite: fair Stresses: Denies any major stressor. Had baby girl ~2 months ago Suicidal Thoughts: No suicidal ideation, intent or plan Support: Comes from multiple sources including family and boyfriend Counseling: No Personal mental health hx: no diagnosis, but described above. . Medication history: none Family mental health hx: grandmother with anxiety/depression on Zoloft ROS as above, otherwise non-contributory. Reviewed PMHx, PSHx, social Hx, medications and allergies. PHYSICAL EXAM BP 128/76 Pulse 80 Temp 37 ?C (98.6 ?F) (Temporal Artery) Resp 16 Wt 78.9 kg (174 lb) SpO2 99% BMI 28.64 kg/m? Appearance: well dressed well groomed, cooperative and pleasant Behavior: good eye contact and slightly anxious Speech: fluent and coherent Mood: Depressed, tearful Affect: labile Perceptions: none Thought process: goal directed Thought Content: normal Intelligence level: normal Insight: fair Judgment: good ASSESSMENT/PLAN: 1. Anxiety - ICD9: 300.00, ICD10: F41.9 (primary diagnosis) - Discussed concept of neurochemical imbalance wth depression/anxiety, treatment options and benefits of counseling in combination with medication - Option of Medication use discussed. Risks/benefits of antidepressants reviewed including common side effects. Start Zoloft. - Also reviewed benefits of sleep hygeine, diet and exercise - Follow-up in 3 weeks or sooner as needed - CONSULT TO PSYCHOLOGY 2. Post depression - ICD9: 648.44, 311, ICD10: F53.0 - CONSULT TO PSYCHOLOGY - Discussed concept of neurochemical imbalance wth depression/anxiety, treatment options and benefits of counseling in combination with medication - Option of Medication use discussed. Risks/benefits of antidepressants reviewed including common side effects. Start Zoloft. - Also reviewed benefits of sleep hygeine, diet and exercise - Follow-up in 3 weeks or sooner as needed - Instructed patient to contact office or [id number] after- hours promptly should condition worsen or any new symptoms appear. - Counseling Center [facility] and after hours crisis line Prescription instructions reviewed with patient as applicable. Potential red flag symptoms discussed with the patient. Reviewed appropriate action plan to take if red flag symptoms occur. Patient agreeable to treatment plan. Iván Rodriguez APRN.SUPERVISOR CRACK OFF Referring Provider: SELF [[id number]] Allergies As of Date: 11/14/2018 Noted Allergy Reaction SEASONAL ALLERGIES 04/28/2009 Date Reviewed: 11/14/2018 Reviewed by: Taylor Bailon Ma - Fully Assessed Reason for Visit: Recheck [92] Cmt: Follow up, anxiety issues, never been on medications Primary Visit Diagnosis:Anxiety [F41.9] Other Visit Diagnosis:Post depression [O99.345, F53.0] Order(s):CONSULT TO PSYCHOLOGY [0055] Order #: [id number]: 1 sertraline (ZOLOFT) 50 mg tabletTake 1 tablet by mouth once daily.Disp: 30 tabletRfl: 1 Prescriptions as of 11/14/2018 Sig: FAMOTIDINE 10 MG TABLET Take 1 tablet by mouth twice * NORGESTIMATE 0.25 MG-ETHINYL * Take 1 tablet by mouth once d* VIT NO.116-IRON 28 M* Take 1 capsule by mouth once * PROBIOTIC ORAL Take by mouth. PERFLUTREN LIPID MICROSPHERES* Inject 1.3 mL intravenously a* SERTRALINE 50 MG TABLET Take 1 tablet by mouth once d* Problem List As Of Date 11/14/2018 Noted Resolved Nondisplaced fracture of triquetral bone of rig*INVALID FOR*10/30/2013 Dysmenorrhea in the adolescent [N94.6] INVALID FOR*01/28/2018 Constipation [K59.00] INVALID FOR* More... Chronic seasonal allergic rhinitis [J30.2] INVALID FOR* Spotting in early [O26.859] INVALID FOR*01/28/2018 More... Family history of congenital heart defect [Z82.*INVALID FOR*09/11/2018 More... History of hematuria [Z87.448] INVALID FOR* More... Patient requested diagnostic testing [Z01.89] INVALID FOR*01/28/2018 More... Vaginal yeast infection [B37.3] INVALID FOR*09/11/2018 More... Anemia during in third trimester [O99*INVALID FOR*09/11/2018 More... Breech presentation with problem [O32*INVALID FOR*09/11/2018 Other instructions from your clinician: You start zoloft by taking one tablet every other day for the first week then increase to daily as prescribed. If you experience any side effects or don't like the way you are feeling on the medication please notify office and we will change to an alternative. Prescriptions ordered this encounter Disp Refills Start End SERTRALINE 50 MG TABLET 30 t* 1 11/14/2018 Route: ORAL Sig: Take 1 tablet by mouth once daily. Follow-up and Disposition History Recorded Encounter Status:Closed by IVÁN RODRIGUEZ CNP on 11/14/18 12 LEAD ELECTROCARDIOGRAM Observed: 11/12/2018 Status: F Source: [place] 3:52 PM [facility] Cardiovascular Services [address] [place] [address] 12 Lead EKG 11/08/18 0803 MR#: [id number] Acct: [id number] Name: FLORIDA WATKINS Rep #: [id number] : 1995 23 From: Jameel Alvares MD Attending Dr: Status: DEP ER Ordering Dr: Andre Mccabe DO Date: 11/08/18 Location: ED Sex: F C Admitted: Test Reason : SOB Blood Pressure : / mmHG Vent. Rate : 084 BPM Atrial Rate : 084 BPM P-R Int : 136 ms QRS Dur : 094 ms QT Int : 370 ms P-R-T Axes : 081 077 057 degrees QTc Int : 437 ms Normal sinus rhythm with sinus arrhythmia Normal ECG Confirmed by MILADY CHÁVEZ, JAMEEL ([id number]), editor news FELIX OREILLY ([id number]) on 11/12/2018 3:52:17 PM Referred By: Iván Rodriguez Confirmed By:JAMEEL ALVARES MD 11/12/18 1552 Date Jameel Alvares MD CC: Boo Millan MD; Andre Mccabe DO Signed EMERGENCY DEPARTMENT Observed: 11/08/2018 Status: F Source: [place] SUMMARY 9:43 AM [facility] REPOSITORY [facility] Medical Records Department [address] [place] [address] Emergency Department Summary 11/08/18 0940 MR#: [id number] Acct: [id number] Name: FLORIDA WATKINS Rep #: [id number] : 1995 23 From: Andre Mccabe DO PCP: Boo Millan MD Status: REG ER - ER Visit Summary Date of Service: 11/08/18 Chief Complaint: [Shortness of breath] History of Present Illness: The patient is a 23 F [presents to the emergency department complaint of shortness of breath that started about a week ago. Patient intermittently has felt lightheaded. Patient has had a slight cough but no sputum production and no fever. Patient was seen by nurse practitioner yesterday and her primary care physician's office who ordered an EKG which showed some abnormalities apparently and also had a D-dimer test that was positive. Patient had recent August 29. Patient denies any chest pain. She denies any swelling in the extremities out of the ordinary. She denies recent travel.] Physical Examination: [HEENT-PERRLA, EOMI. Cranial nerves II through XII grossly intact. TMs clear. Mucous membranes moist. No adenopathy. Cardiovascular-regular rate and rhythm without murmur or ectopy Lungs-clear to auscultation, chest wall stable without crepitus or subcu emphysema Abdomen-normoactive bowel sounds, soft, nontender, no rebound or rigidity, no peritoneal signs. Extremities-intact 4, normal range of motion, normal pulses, atraumatic] Test Results: [EKG obtained on arrival showed sinus rhythm with a ventricular rate of 84 bpm with occasional PACs. CBC with differential was normal with a white blood cell count 6.6, hemoglobin 13, hematocrit 39. Chemistries were normal. Troponin was less than 0.015. Patient did have a slightly elevated d-dimer yesterday therefore CTA of the chest was obtained which was normal] Emergency Department Course and Treatment: [] Treatment Plan: [Patient was reassured that I did not see anything concerning or life-threatening. Patient advised to follow-up with her primary care physician within next 5-7 days.] Disposition: [Discharged home in stable condition Impression: [Dyspnea-etiology uncertain] This note was generated with [employer] dictation software. It may contain incorrect words, spelling, and punctuation that were not noted in review of the chart prior to signing ED Disposition - Plan for ED Patient: Chief Complaint: Shortness of Breath Referrals: Boo Millan MD [Primary Care Provider] - What to do if you have Problems For any increased pain, shortness of breath, bleeding, nausea or vomiting, chest pain, or any unexpected problems, contact your Primary Care Provider. Call [facility] ([phone]) or report to the closest Emergency Room. Call 911 if necessary. 11/08/18 0943 <Electronically signed by Remus Ungur DO> Date Christius Mixrajesh DO Cosigner Signature (If Indicated): Date CC: Boo Millan MD DISCHARGE INSTRUCTION Observed: 11/08/2018 Status: F Source: [place] 9:43 AM [facility] REPOSITORY [facility] Medical Records Department [address] [place] [address] Discharge Instruction 11/08/18942 MR#: [id number] Acct: [id number] Name: FLORIDA WATKINS Rep #: [id number] : 1995 23 From: Andre Mccabe DO PCP: Boo Millan MD Status: REG ER ED Disposition - Plan for ED Patient: Chief Complaint: Shortness of Breath Instructions: ED Dyspnea Shortness of Breath Referrals: Boo Millan MD [Primary Care Provider] - 5-7 Days What to do if you have Problems For any increased pain, shortness of breath, bleeding, nausea or vomiting, chest pain, or any unexpected problems, contact your Primary Care Provider. Call [facility] ([phone]) or report to the closest Emergency Room. Call 911 if necessary. 11/08/18942 <Electronically signed by Andre Mccabe DO> Date Rem Ungrajesh DO Cosigner Signature (If Indicated): Date CC: Boo Millan MD CBC W/DIFF, AUTOMATED Collected: 11/08/2018 Status: F Source: [place] 8:15 AM [facility] HOSPITAL REPOSITORY TYPE CODE TESTS RESULT OUT OF RANGE REFERENCE UNITS LAB L100.1000 4.4-11.0 K/mm3 Normal WBC 6.6 LAB L100.1200 4.2-5.4 M/mm3 Normal RBC 4.82 LAB L100.1300 12.0-15.0 g/dl Normal HGB 13.3 LAB L100.1400 37-47 % Normal HCT 39.3 LAB L100.1500 81-99 fL Normal MCV 81.5 LAB L100.1600 27.0-32.0 pg Normal MCH 27.6 LAB L100.1700 32-36 g/gl Normal MCHC 33.8 LAB L100.1810 11.6-14.6 % Normal RDW CV 13.6 LAB L100.1820 35.1-43.9 fl Normal RDW SD 40.9 LAB L100.1900 150-450 K/mm3 Normal PLT 324 LAB L100.2000 6.2-12.0 fl Normal MPV 8.2 LAB L100.2100 47-70 % Normal NEUT% 60.1 LAB L100.2200 19-41 % Normal LY% 28.2 LAB L100.2300 0-10 % Normal MONO% 6.1 LAB L100.2400 0-5 % High EO% 5.2 LAB L100.2500 0-1 % Normal BASO% 0.2 LAB L100.2550 0.0-0.9 % Normal IM GRAN % 0.200 Result Comment: IG% - Immature Granulocytes (promyelocytes, myelocytes and metamyelocytes) > 1% indicates that a LEFT SHIFT is Present. LAB L100.2620 2.0-7.7 X10 3/uL Normal Absolute Neut 4.0 LAB L100.2720 0.83-4.51 X10 3/ul Normal Absolute Lymph 1.86 Performed By: #### L100.0100 #### [facility] [address] [place], [place], [address] BASIC METABOLIC Collected: 11/08/2018 Status: F Source: [place] PROFILE ([facility]) 8:15 AM [facility] REPOSITORY TYPE CODE TESTS RESULT OUT OF RANGE REFERENCE UNITS LAB L501.0100 74-106 mg/dL Normal GLU 82 Result Comment: Please note revised GLUCOSE reference range effective 2017. LAB L501.1000 7-18 mg/dL Normal BUN 14 LAB L501.1100 0.55-1.02 mg/dL Normal CREAT,SERUM 0.76 Result Comment: The validity of the calculated GFR AND GFRAA in patients over 70 years has not been determined. Clinical correlation is essential. LAB L501.1110 >60 mL/min Normal EST GFR 102 Result Comment: Non- GFR Calc LAB L501.1115 >60 mL/min Normal EST GFR - AA 124 Result Comment: GFR Calc LAB L501.1255 ml/min Normal Estimated CRCL 105.36 LAB L501.1300 10-20 RATIO BUN/CRE Normal 18.5 LAB L501.2200 8.5-10 mg/dL .1 CA Normal 8.9 LAB L501.5300 136-14 mmol/L 5 NA Normal 141 LAB L501.5600 3.5-5. mmol/L 1 K Normal 4.0 LAB L501.5900 98-107 mmol/L High CL 109 LAB L501.6100 21.0-3 mmol/L 2.0 CO2 Normal 22.0 LAB L501.6200 5-15 GAP Normal 10 Performed By: #### L500.2500, L501.4010 #### [facility] [address] [facility]. [place], [place], [address] TROPONIN-I Collected: 11/08/2018 Status: F Source: [place] 8:15 AM [facility] REPOSITORY TYPE CODE TESTS RESULT OUT OF RANGE REFERENCE UNITS LAB L501.4010 <0.045 ng/mL Normal < 0.015 TROPONIN-I Result Comment: TROPONIN-I EXPECTED VALUES <0.045 Negative 0.045 - 0.590 Consistent with Cardiac Damage > OR = 0.600 Critical Value Not every elevated troponin is indicative of ME. These values should be used with clinical judgement in examining the patient's clinical picture for diagnosis. To establish a diagnosis of ME versus myocardial injury, there must be a demonstrated rise and/or fall in the troponin values, in addition to ischemic symptoms, EKG changes, new regional wall motion abnormality, and/or angiographical evidence. PLEASE NOTE: REFERENCE RANGES EDITED 18 Performed By: #### L500.2500, L501.4010 #### [facility] [address] [facility] [place], [address] CTA CHEST W/WO Observed: 11/08/2018 Status: F Source: [place] CONTRAST 8:02 AM [facility] REPOSITORY [facility] [place] [address] CTA Chest W/WO Contrast MR#: [id number] Acct: [id number] Name: FLORIDA WATKINS Rep #: [id number] : 1995 F 23 From: Akil Vaughan PCP: Boo Millan MD Status: REG ER Study: CTA Chest W/WO Contrast Date of Exam: 11/08/18 Exam# [id number] Ordering Dr: Andre Mccabe DO STUDY: CTA CHEST REASON FOR EXAM: Female, 23 years old. ELEV DDIMER, IN AUGUST. RADIATION DOSAGE (If Supplied By Facility): CTDIvol = ( 12.99 ) mGy, DLP = ( 550.42 ) mGycm TECHNIQUE: The examination was performed with the intravenous administration of 75ML ml of Isovue 370 contrast material. Post-processing of the angiographic images was performed, with multiplanar reformation and 3D reconstruction. Individualized dose optimization techniques were used for this CT. COMPARISON: None. FINDINGS: Normal enhancement of the main pulmonary artery and right and left pulmonary arteries. Normal enhancement of the bilateral peripheral pulmonary arteries. There is no demonstrated pulmonary embolism. Normal thoracic aorta and visualized great vessels. There is no demonstrated aortic dissection. Normal heart and pericardium. Normal mediastinum. Normal hilar regions. Normal visualized trachea and bronchi. The lungs are well expanded. Normal pulmonary parenchyma. Normal pleura. Normal chest wall structures. Normal osseous structures. Normal visualized upper abdomen. CT/CTA Chest W/WO Contrast IMPRESSION: Normal CTA chest examination, without a demonstrated pulmonary embolism or arterial dissection. Electronically Signed: Akil Vaughan MD at 9:29 EST Tel , Service support , CC: Boo Millan MD; Andre Mccabe DO Awning Hanger: Signed D-DIMER QUANTITATIVE Collected: 11/07/2018 Status: F Source: [place] (DVT/PE) 5:05 PM [facility] REPOSITORY TYPE CODE TESTS RESULT OUT OF RANGE REFERENCE UNITS LAB L300.8000 0.27-0.49 FEU/ug/m High alert D-DIMER 0.72 QUANT Result Comment: RESULTS CALLED TO PORTRAIT CONSULTANT FOR IVÁN RODRIGUEZ GROUP THERAPIST-C 11/07/18 1759 Alex Gonzales. REPORT READ BACK BY SAME . D-Dimer ELEVATED (>0.49): Additional studies and clinical assessments are indicated to conclude diagnosis of: Deep Vein Thrombosis (DVT) or Pulmonary Embolism (PE) Performed By: #### L300.8000 #### [facility] [address] [facility]. [place], [place], [address] D DIMER Collected: 11/07/2018 Status: F Source: [place] 4:50 PM [facility] REPOSITORY TYPE CODE TESTS RESULT OUT OF REFERENCE UNITS RANGE LAB DDMER <500 ng/mL FEU D Unable to dimer assay. No specimen received. Result Comment: Account Credited Performed By: #### DDMER #### [facility] [address] [place], [place] [address] TSH Collected: 11/07/2018 Status: F Source: [place] 3:15 PM [facility] REPOSITORY TYPE CODE TESTS RESULT OUT OF RANGE REFERENCE UNITS LAB TSH 0.400-5.500 uU/mL TSH 1.270 Result Comment: If the patient is , TSH reference range varies by gestational period: First Trimester 0.100-2.500 uU/mL Second Trimester 0.200-3.000 uU/mL Third Trimester 0.300-3.000 uU/mL References: 1. Becerra L, Rolando M, Oleg EK, et al. Management of Thyroid Dysfunction during and : An Endocrine Society Clinical Practice Guideline. J Clin Endocrinol Metab, 2012:97:2136-3049. 2. Fredi NEWTON. Overview of thyroid disease in . UpToDate. 2016. Accessed on May 11, 2016. Performed By: #### TSH #### [facility] [address] [place], [place] [address] [place] CBC Collected: 11/07/2018 Status: F Source: [place] 2:34 PM [facility] REPOSITORY TYPE CODE TESTS RESULT OUT OF REFERENCE UNITS RANGE LAB WWBC 3.70-11.00 k/uL Ola WBC 11.00 LAB WRBC 3.90-5.20 m/uL Ola RBC 4.79 LAB WHGB 11.5-15.5 g/dL Ola Hemoglobin 13.0 LAB WHCT 36.0-46.0 % Winston Hematocrit 40.3 LAB WMCV 80.0-100.0 fL [place] MCV 84.1 LAB WMCH 26.0-34.0 pg [place] MCH 27.1 LAB WMCHC 30.5-36.0 g/dL [place] MCHC 32.3 LAB WRDW 11.5-15.0 % Ola RDW 13.7 LAB WPLT 150-400 k/uL [place]la Platelet Cnt 349 LAB WMPV 9.0-12.7 fL Low Ola MPV 8.7 Result Comment: Test performed at: [facility], [address] [place] [address] Rd[address] [place] [address]. BASIC METABOLIC PANL Collected: 11/07/2018 Status: F Source: [place] 2:34 PM [facility] REPOSITORY TYPE CODE TESTS RESULT OUT OF REFERENCE UNITS RANGE LAB GLU 74-99 mg/dL Glucose 91 LAB BUN 7-21 mg/dL BUN 20 LAB CRET 0.58-0.96 mg/dL Creatinine 0.72 LAB NA 136-144 mmol/L Sodium 136 LAB K 3.7-5.1 mmol/L Potassium 3.9 LAB CL 97-105 mmol/L Chloride 105 LAB CO2 22-30 mmol/L Low CO2 21 LAB AGAP mmol/L Anion Gap 10 LAB CA 8.5-10.2 mg/dL Calcium, Total 9.3 LAB GFRAA eGFR- >60 Amer. LAB GFRNAA . eGFR-All Other Races >60 Result Comment: eGFR (Estimated GFR) Units of measure: mL/min/1.73 meters squared eGFR is derived from the reexpressed MDRD Study equation using the following parameters: serum creatinine, age, gender and race. The creatinine assay has been calibrated to be traceable to IDMS. An eGFR <60 mL/min/1.73m2 for >3 months is consistent with chronic kidney disease. Refer to KDOQI guidelines for clinical interpretation. In patients with unstable renal function, e.g. those with acute kidney injury, the eGFR may not accurately reflect actual GFR. PROGRESS Observed: 11/07/2018 Status: COMPLETED Source: [place] 2:12 PM [facility] REPOSITORY HNO ID: [id number] Author: Iván (Natalia) Carloz Service: (none) Author Type: Nurse Practitioner Type: Progress Notes Filed: 11/07/2018 4:30 PM Note Text: CC: Patient presents with: Dizziness Nausea Shortness of Breath HPI [place] Watkins is a 23 year old female who presents today for reports intermittent dizziness, SOB and nausea x1 week. Patient reports intermittent episodes of dizziness over the past week. Associated symptoms include some nausea and feeling SOB or need to take deep breath to get enough air. Remote hx of palpitations and iron deficiency anemia during recent . S/p 2 months. She denies any fever, chills, ear pain/pressure, chest pain, wheezing or edema. Also denies numbness, tingling, weakness or syncopal episodes. She reports resuming caffeinated beverages recently, drinking 2 [employer] coffees a day and consuming a lot of chocolate- poor dietary choices in general since delivery. She also notes she does not drink much water. She denies and changes in medication, alcohol consumption or recent head injury or trauma. Denies chance of current - on OCP and currently menstruating but has been sexually active since giving . Feeling anxious d/t current symptoms. States she was never officially diagnosed but feels she has had anxiety since she was a teenager. Eating seems to lesson symptoms. Denies known family hx of thyroid or cardiac disease including sudden cardiac . +family hx diabetes. REVIEW OF SYSTEMS General: no fevers, no chills, no night sweats, no recurrent infections, no change in appetite, no change in energy and no significant changes in weight HEENT: no changes in hearing, no visual changes, no nose bleeds, no sinus or nasal problems Respiratory: no cough, no wheezing, no hemoptysis, See HPI Cardiovascular: no chest pain, no chest pressure, no swelling and See HPI Psych: see HPI Neurologic: No weakness, numbness, tingling, neck stiffness, tremor, memory loss, syncope. PAST MEDICAL HISTORY Diagnosis Date - Anemia during in third trimester 06/18/2018 - Chronic seasonal allergic rhinitis 10/18/2017 - Constipation - Interstitial cystitis PAST SURGICAL HISTORY Procedure Laterality Date - COLONOSCOP W/ OR W/O BRSH SPEC 10/30/2017 Colonoscopy - DENTAL SURGERY HX 2005 - EGD W/O OR W/BRUSH/WASH 10/30/2017 EGD ALLERGIES Seasonal Allergies MEDICATIONS famotidine (PEPCID AC) 10 mg tablet Take 1 tablet by mouth twice daily. Lactobacillus acidophilus (PROBIOTIC ORAL) Take by mouth. norgestimate 0.25 mg-ethinyl estradiol 35 mcg (SPRINTEC) 0.25- 35 mg-mcg per tablet Take 1 tablet by mouth once daily. [id number] ( FORMULA-DHA) 28 mg- 800 mcg- 200 mg cap Take 1 capsule by mouth once daily. FAMILY HISTORY Problem Relation Age of Onset - Cervical Cancer Mother Pre-cancerous - None Father - other (Colitis) Maternal Grandmother - Heart Maternal Grandfather - Diabetes Maternal Uncle - Asthma Brother Social History Substance Use Topics - Smoking status: Former Smoker Years: 0.50 Quit date: 2013 - Smokeless tobacco: Never Used Comment: step dad outside - Alcohol use No PHYSICAL EXAM BP 126/78 (BP Site: Left Arm, BP Position: Sitting, BP Cuff Size: Regular Adult) Pulse (!) 40 Resp 14 Wt 81.6 kg (180 lb) SpO2 94% BMI 29.63 kg/m? General Appearance: in no acute distress, alert Pysch: mood and affect flat and restricted Skin: Skin color, texture, turgor normal for age; Head: normocephalic, atraumatic Ears: external ears normal to inspection and palpation, canals clear, R TM: serous effusion, L TM: normal Neck: Thyroid normal size and symmetric without palpable nodules, No adenopathy Oropharynx: lips normal without lesions, tongue midline and normal, soft palate, uvula, and tonsils normal Lungs: lungs clear to auscultation. No wheezing, rhonchi, rales Heart: Tachycardic regular rhythm without murmur, gallop, or rubs. No ectopy Bilateral Lower Extremities: no edema Neurological: Gait normal. Reflexes normal and symmetric. Sensation grossly intact. GC (GONORRHEA) SCREENING (18-24) due on 06/11/2019 CHLAMYDIA SCREENING (18-24) due on 06/11/2019 PAP EVERY 3 YEARS (21-30 YEAR OLDS) due on 10/15/2021 DTAP,TDAP,TD(8 - Td) due on 07/25/2028 HPV VACCINE Completed INFLUENZA Completed MENINGOCOCCAL CONJUGATE Completed ASSESSMENT/PLAN: 1. Dizziness - ICD9: 780.4, ICD10: R42 (primary diagnosis) - Etiology unclear, differentials include dehydration, thyroid disorder, hypoglycemia, anemia given recent , PE? and possible but least likely - ECG COMPLETE W INTERPRETATION- Sinus Rhythm with sinus arrhythmia, HR 96, CA 132ms, QRS 92ms, QT 352ms similar to previous ECG 02/2018 - TSH BLD - HCG QUAL UR B/O- Negative in office - HOLTER MONITOR 24 HOUR - ECHO - [place] CBC - [place] ISTAT BMP - Ddimer 2. Palpitations - ICD9: 785.1, ICD10: R00.2 - ECG COMPLETE W INTERPRETATION - TSH BLD - HOLTER MONITOR 24 HOUR Iván Rodriguez APRN.CNP Prescription instructions reviewed with patient as applicable. Potential red flag symptoms discussed with the patient. Reviewed appropriate action plan to take if red flag symptoms occur. Patient agreeable to treatment plan. CNOV Observed: 11/07/2018 Status: COMPLETED Source: [place] 2:00 PM [facility] REPOSITORY Office Visit (INTMWS) FLORIDA WATKINS ([id number]) 1995 F Date Time Provider Department 11/07/18 2:00 PM IVÁN RODRIGUEZ) INTMWS During your visit today, we recorded the following information about you: Pulse Respiration Blood pressure Weight 40/minute 14/minute 126/78 81.6 kg Iván Rodriguez APRN.CNP 11/07/2018 4:30 PM Signed CC: Patient presents with: Dizziness Nausea Shortness of Breath HPI [place] Watkins is a 23 year old female who presents today for reports intermittent dizziness, SOB and nausea x1 week. Patient reports intermittent episodes of dizziness over the past week. Associated symptoms include some nausea and feeling SOB or need to take deep breath to get enough air. Remote hx of palpitations and iron deficiency anemia during recent . S/p 2 months. She denies any fever, chills, ear pain/pressure, chest pain, wheezing or edema. Also denies numbness, tingling, weakness or syncopal episodes. She reports resuming caffeinated beverages recently, drinking 2 international [employer] coffees a day and consuming a lot of chocolate- poor dietary choices in general since delivery. She also notes she does not drink much water. She denies and changes in medication, alcohol consumption or recent head injury or trauma. Denies chance of current - on OCP and currently menstruating but has been sexually active since giving . Feeling anxious d/t current symptoms. States she was never officially diagnosed but feels she has had anxiety since she was a teenager. Eating seems to lesson symptoms. Denies known family hx of thyroid or cardiac disease including sudden cardiac . +family hx diabetes. REVIEW OF SYSTEMS General: no fevers, no chills, no night sweats, no recurrent infections, no change in appetite, no change in energy and no significant changes in weight HEENT: no changes in hearing, no visual changes, no nose bleeds, no sinus or nasal problems Respiratory: no cough, no wheezing, no hemoptysis, See HPI Cardiovascular: no chest pain, no chest pressure, no swelling and See HPI Psych: see HPI Neurologic: No weakness, numbness, tingling, neck stiffness, tremor, memory loss, syncope. PAST MEDICAL HISTORY Diagnosis Date - Anemia during in third trimester 06/18/2018 - Chronic seasonal allergic rhinitis 10/18/2017 - Constipation - Interstitial cystitis PAST SURGICAL HISTORY Procedure Laterality Date - COLONOSCOP W/ OR W/O BRSH SPEC 10/30/2017 Colonoscopy - DENTAL SURGERY HX 2004 - EGD W/O OR W/BRUSH/WASH 10/30/2017 EGD ALLERGIES Seasonal Allergies MEDICATIONS famotidine (PEPCID AC) 10 mg tablet Take 1 tablet by mouth twice daily. Lactobacillus acidophilus (PROBIOTIC ORAL) Take by mouth. norgestimate 0.25 mg-ethinyl estradiol 35 mcg (SPRINTEC) 0.25- 35 mg-mcg per tablet Take 1 tablet by mouth once daily. [id number] ( FORMULA-DHA) 28 mg- 800 mcg- 200 mg cap Take 1 capsule by mouth once daily. FAMILY HISTORY Problem Relation Age of Onset - Cervical Cancer Mother Pre-cancerous - None Father - other (Colitis) Maternal Grandmother - Heart Maternal Grandfather - Diabetes Maternal Uncle - Asthma Brother Social History Substance Use Topics - Smoking status: Former Smoker Years: 0.50 Quit date: 2013 - Smokeless tobacco: Never Used Comment: step dad outside - Alcohol use No PHYSICAL EXAM BP 126/78 (BP Site: Left Arm, BP Position: Sitting, BP Cuff Size: Regular Adult) Pulse (!) 40 Resp 14 Wt 81.6 kg (180 lb) SpO2 94% BMI 29.63 kg/m? General Appearance: in no acute distress, alert Pysch: mood and affect flat and restricted Skin: Skin color, texture, turgor normal for age; Head: normocephalic, atraumatic Ears: external ears normal to inspection and palpation, canals clear, R TM: serous effusion, L TM: normal Neck: Thyroid normal size and symmetric without palpable nodules, No adenopathy Oropharynx: lips normal without lesions, tongue midline and normal, soft palate, uvula, and tonsils normal Lungs: lungs clear to auscultation. No wheezing, rhonchi, rales Heart: Tachycardic regular rhythm without murmur, gallop, or rubs. No ectopy Bilateral Lower Extremities: no edema Neurological: Gait normal. Reflexes normal and symmetric. Sensation grossly intact. GC (GONORRHEA) SCREENING (18-24) due on 06/11/2019 CHLAMYDIA SCREENING (18-24) due on 06/11/2019 PAP EVERY 3 YEARS (21-30 YEAR OLDS) due on 10/15/2021 DTAP,TDAP,TD(8 - Td) due on 07/25/2028 HPV VACCINE Completed INFLUENZA Completed MENINGOCOCCAL CONJUGATE Completed ASSESSMENT/PLAN: 1. Dizziness - ICD9: 780.4, ICD10: R42 (primary diagnosis) - Etiology unclear, differentials include dehydration, thyroid disorder, hypoglycemia, anemia given recent , PE? and possible but least likely - ECG COMPLETE W INTERPRETATION- Sinus Rhythm with sinus arrhythmia, HR 96, CA 132ms, QRS 92ms, QT 352ms similar to previous ECG 02/2018 - TSH BLD - HCG QUAL UR B/O- Negative in office - HOLTER MONITOR 24 HOUR - ECHO - WINSTON CBC - WINSTON ISTAT BMP - Ddimer 2. Palpitations - ICD9: 785.1, ICD10: R00.2 - ECG COMPLETE W INTERPRETATION - TSH BLD - HOLTER MONITOR 24 HOUR Iván Rodriguez APRN.CNP Prescription instructions reviewed with patient as applicable. Potential red flag symptoms discussed with the patient. Reviewed appropriate action plan to take if red flag symptoms occur. Patient agreeable to treatment plan. Iván Rodriguez APRN.CNP 11/07/2018 2:37 PM Signed Increase water intake, minimum of 8-10 (8oz) glasses per day. Cut out caffeine, if you must limit to one regular cup of coffee daily. Begin eating small meals every 2-3 hours. Any worsening symptoms or if you pass out please go to the ER immediately. Referring Provider: SELF [[id number]] Allergies As of Date: 11/07/2018 Noted Allergy Reaction SEASONAL ALLERGIES 04/28/2009 Date Reviewed: 11/07/2018 Reviewed by: Haseeb Shane LPN - Fully Assessed Reason for Visit: Dizziness [36] Nausea [70] Shortness of Breath [227] Primary Visit Diagnosis:Dizziness [R42] Other Visit Diagnoses:Palpitations [R00.2] ECG abnormality [R94.31] Order(s):ECG COMPLETE W INTERPRETATION [ECG01] Order #: [id number] FUTURE TSH BLD [SQTSH] Order #: [id number] FUTURE HCG QUAL UR B/O [0356292] Order #: [id number] HOLTER MONITOR 24 HOUR [[id number]] Order #: [id number] FUTURE ECHO [006081] Order #: [id number]: 1 FUTURE perflutren lipid microspheres (DEFINITY) 1.1 mg/mL injection (to be provided with echo procedure)Inject 1.3 mL intravenously as directed.Disp: 1.3 mLRfl: 0 WINSTON CBC [SQWCBC] Order #: [id number] FUTURE WINSTON ISTAT BMP [SQWSTBMP] Order #: [id number] FUTURE D-DIMER [SQDDMER] Order #: [id number] FUTURE Prescriptions as of 11/07/2018 Sig: FAMOTIDINE 10 MG TABLET Take 1 tablet by mouth twice * PROBIOTIC ORAL Take by mouth. NORGESTIMATE 0.25 MG-ETHINYL * Take 1 tablet by mouth once d* PERFLUTREN LIPID MICROSPHERES* Inject 1.3 mL intravenously a* VIT NO.116-IRON 28 M* Take 1 capsule by mouth once * Medication notes this encounter PROBIOTIC ORAL >> Haseeb Shane LPN 11/07/2018 1:53 PM >> HASEEB SHANE LPN SatNov 07, 2018 1:53 PM Not taking. Problem List As Of Date 11/07/2018 Noted Resolved Nondisplaced fracture of triquetral bone of rig*INVALID FOR*10/30/2013 Dysmenorrhea in the adolescent [N94.6] INVALID FOR*01/28/2018 Constipation [K59.00] INVALID FOR* More... Chronic seasonal allergic rhinitis [J30.2] INVALID FOR* Spotting in early [O26.859] INVALID FOR*01/28/2018 More... Family history of congenital heart defect [Z82.*INVALID FOR*09/11/2018 More... History of hematuria [Z87.448] INVALID FOR* More... Patient requested diagnostic testing [Z01.89] INVALID FOR*01/28/2018 More... Vaginal yeast infection [B37.3] INVALID FOR*09/11/2018 More... Anemia during in third trimester [O99*INVALID FOR*09/11/2018 More... Breech presentation with problem [O32*INVALID FOR*09/11/2018 Other instructions from your clinician: Increase water intake, minimum of 8-10 (8oz) glasses per day. Cut out caffeine, if you must limit to one regular cup of coffee daily. Begin eating small meals every 2-3 hours. Any worsening symptoms or if you pass out please go to the ER immediately. Prescriptions ordered this encounter Disp Refills Start End PERFLUTREN LIPID MICROSPHERES 1.1 MG* 1.3 * 0 11/07/2018 11/07/2019 Class: In Office Route: INTRAVENOUS Sig: Inject 1.3 mL intravenously as directed. Encounter Status:Closed by IVÁN RODRIGUEZ CNP on 11/07/18 PROGRESS Observed: 10/28/2018 Status: COMPLETED Source: [place] 8:45 AM [facility] REPOSITORY HNO ID: [id number] Author: Shu Turk Service: (none) Author Type: (none) Type: Progress Notes Filed: 10/28/2018 8:45 AM Note Text: Pap logged and normal pap log sent to patient. Shu Turk CYTOLOGY Observed: 10/15/2018 Status: F Source: [place] 3:14 PM [facility] REPOSITORY Specimen originated from [facility] Specimen #: [id number] Submitting Physician: DASIA PERKINS MD SPECIMEN SUBMITTED A: CERVICAL, SCREENING, FLUID FINAL DIAGNOSIS A. CERVICAL, SCREENING, FLUID Satisfactory for interpretation. Negative for intraepithelial lesion or malignancy. This specimen has been analyzed by the ThinPrep Imaging System, an automated imaging and review system, which assists the laboratory in evaluating cells on ThinPrep Pap tests. Following automated imaging, selected foss from every slide are reviewed by a senior programmer. MACIEJ STRICKLAND M.D. 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 The Pap Smear is a screening test for cervical cancer. False negative results occur with all screening tests, emphasizing the need for rescreening at recommended intervals, and clinical correlation. CNOV Observed: 10/15/2018 Status: COMPLETED Source: [place] 3:10 PM [facility] [place] REPOSITORY Office Visit (WOOB) [place]OR[place] WATKINS ([id number]) 1995 F Date Time Provider Department 10/15/18 3:10 PM DASIA PERKINS WOFRED During your visit today, we recorded the following information about you: Blood pressure Weight 102/64 78 kg Dasia Perkins MD 10/15/2018 3:22 PM Signed [place] Watkins is a 23 year old female who presents for recurrent yeast infections. HPI: Patient presents for vaginal culture for recurrent yeast infections. She has some vaginal itching today. PAST MEDICAL HISTORY Diagnosis Date - Anemia during in third trimester 06/18/2018 - Chronic seasonal allergic rhinitis 10/18/2017 - Constipation - Interstitial cystitis PAST SURGICAL HISTORY Procedure Laterality Date - COLONOSCOP W/ OR W/O BRSH SPEC 10/30/2017 Colonoscopy - DENTAL SURGERY HX 2004 - EGD W/O OR W/BRUSH/WASH 10/30/2017 EGD FAMILY HISTORY Problem Relation Age of Onset - Cervical Cancer Mother Pre-cancerous - None Father - other (Colitis) Maternal Grandmother - Heart Maternal Grandfather - Diabetes Maternal Uncle - Asthma Brother Social History Marital status: Single Spouse name: Years of education: 12 Number of children: 0 Occupational History Occupation Employer Comment [employer] Social History Main Topics Smoking status: Former Smoker Packs/day: 0.00 Years: 0.50 Quit date: 2013 Smokeless tobacco: Never Used Comment: step dad outside Alcohol use: No Drug use: No Sexual activity: Yes Partners with: Male control/protection: None Other Topics Concern Service No Sleep Concern No Special Diet No Exercise No Seat Belt Yes Social History Narrative Lives with mom, step father, brother and fiance 1 dog Current Outpatient Prescriptions: norgestimate 0.25 mg-ethinyl estradiol 35 mcg (SPRINTEC) 0.25- 35 mg-mcg per tablet Take 1 tablet by mouth once daily. Lactobacillus acidophilus (PROBIOTIC ORAL) Take by mouth. famotidine (PEPCID AC) 10 mg tablet Take 1 tablet by mouth twice daily. [id number]-xto ( FORMULA-DHA) 28 mg- 800 mcg- 200 mg cap Take 1 capsule by mouth once daily. No current facility-administered medications for this visit. Allergies As of Date: 10/15/2018 Allergen Noted Reaction SEASONAL ALLERGIES 04/28/2009 Fully Assessed 10/10/2018 REVIEW OF SYSTEMS Bladder: No dysuria, gross hematuria, urinary frequency, urinary urgency, or incontinence. Allergies and current medication updated:Yes EXAM: There were no vitals taken for this visit. GENERAL: pleasant, female in no apparent distress CHEST: Normal inspiratory effort PELVIC: external genitalia normal, normal Bartholin's glands, urethra, [place]'s glands, no vulvar lesions, no cervical lesions, good vaginal support, physiologic discharge present, normal appearing perineal body and perianal region BIMANUAL: uterus normal size, shape and consistency, no adnexal masses and non-tender ASSESSMENT AND PLAN: 23yo female with recurrent vaginal yeast infections Vaginal culture for yeast Pap done MD Shu Hale 10/28/2018 8:45 AM Signed Pap logged and normal pap log sent to patient. Shu Turk Referring Provider: DASIA PERKINS [[id number]] Allergies As of Date: 10/15/2018 Noted Allergy Reaction SEASONAL ALLERGIES 04/28/2009 Date Reviewed: 10/15/2018 Reviewed by: Dasia Perkins - Fully Assessed Reason for Visit: Pap Smear [Other] Primary Visit Diagnosis:Encounter for screening for malignant neoplasm of cervix [Z12.4] Other Visit Diagnosis:Vaginal yeast infection [B37.3] Order(s):PAP FLUID CERVICAL SCREENING [[id number]] Order #: [id number]. #:[id number] norgestimate 0.25 mg-ethinyl estradiol 35 mcg (SPRINTEC) 0.25-35 mg-mcg per tabletTake 1 tablet by mouth once daily.Disp: 3 PackageRfl: 5 FUNGAL SCREEN [SQFUNGSC] Order #: [id number]. #:[id number] Prescriptions as of 10/15/2018 Sig: NORGESTIMATE 0.25 MG-ETHINYL * Take 1 tablet by mouth once d* PROBIOTIC ORAL Take by mouth. FAMOTIDINE 10 MG TABLET Take 1 tablet by mouth twice * VIT NO.116-IRON 28 M* Take 1 capsule by mouth once * Problem List As Of Date 10/15/2018 Noted Resolved Nondisplaced fracture of triquetral bone of rig*INVALID FOR*10/30/2013 Dysmenorrhea in the adolescent [N94.6] INVALID FOR*01/28/2018 Constipation [K59.00] INVALID FOR* More... Chronic seasonal allergic rhinitis [J30.2] INVALID FOR* Spotting in early [O26.859] INVALID FOR*01/28/2018 More... Family history of congenital heart defect [Z82.*INVALID FOR*09/11/2018 More... History of hematuria [Z87.448] INVALID FOR* More... Patient requested diagnostic testing [Z01.89] INVALID FOR*01/28/2018 More... Vaginal yeast infection [B37.3] INVALID FOR*09/11/2018 More... Anemia during in third trimester [O99*INVALID FOR*09/11/2018 More... Breech presentation with problem [O32*INVALID FOR*09/11/2018 Prescriptions ordered this encounter Disp Refills Start End NORGESTIMATE 0.25 MG-ETHINYL ESTRADI* 3 Pa* 5 10/15/2018 Class: [facility] Route: ORAL Sig: Take 1 tablet by mouth once daily. Medications Discontinued During This Encounter norgestimate 0.25 mg-ethinyl estradi* 1 Pa* 14 10/10/2018 10/15/2018 Class: Print RX Route: ORAL Sig: Take 1 tablet by mouth once daily. Disc: Reason for discontinue is not on file. Letter Text Dasia Perkins MD [facility] [address] [place], [place] [address] [place] Jacob0 Michelle Cervantes [address] [facility] [address] 10/28/2018 [facility]: [id number] Dear [place], We are pleased to inform you that your recent Pap Test was within normal limits. Because Pap tests are so effective in the early detection of cervical cancer, you are encouraged to continue having the test at regular intervals. You will be due for a 1 year Gynecological Exam after this date 10/15/2019. If you have any questions regarding the above information, do not hesitate to call our office at between the hours of 8:00 a.m. and 5:00 p.m. Sincerely, Dasia Perkins MD Encounter Status:Closed by DASIA PERKINS MD on 10/15/18 PROGRESS Observed: 10/15/2018 Status: COMPLETED Source: [place] 2:57 PM [facility] REPOSITORY HNO ID: [id number] Author: Dasia Perkins Service: (none) Author Type: Physician Type: Progress Notes Filed: 10/15/2018 3:22 PM Note Text: [place] Watkins is a 23 year old female who presents for recurrent yeast infections. HPI: Patient presents for vaginal culture for recurrent yeast infections. She has some vaginal itching today. PAST MEDICAL HISTORY Diagnosis Date - Anemia during in third trimester 06/18/2018 - Chronic seasonal allergic rhinitis 10/18/2017 - Constipation - Interstitial cystitis PAST SURGICAL HISTORY Procedure Laterality Date - COLONOSCOP W/ OR W/O BRSH SPEC 10/30/2017 Colonoscopy - DENTAL SURGERY HX 2004 - EGD W/O OR W/BRUSH/WASH 10/30/2017 EGD FAMILY HISTORY Problem Relation Age of Onset - Cervical Cancer Mother Pre-cancerous - None Father - other (Colitis) Maternal Grandmother - Heart Maternal Grandfather - Diabetes Maternal Uncle - Asthma Brother Social History Marital status: Single Spouse name: Years of education: 12 Number of children: 0 Occupational History Occupation Employer Comment [employer] Social History Main Topics Smoking status: Former Smoker Packs/day: 0.00 Years: 0.50 Quit date: 2013 Smokeless tobacco: Never Used Comment: step dad outside Alcohol use: No Drug use: No Sexual activity: Yes Partners with: Male control/protection: None Other Topics Concern Service No Sleep Concern No Special Diet No Exercise No Seat Belt Yes Social History Narrative Lives with mom, step father, brother and fiance 1 dog Current Outpatient Prescriptions: norgestimate 0.25 mg-ethinyl estradiol 35 mcg (SPRINTEC) 0.25- 35 mg-mcg per tablet Take 1 tablet by mouth once daily. Lactobacillus acidophilus (PROBIOTIC ORAL) Take by mouth. famotidine (PEPCID AC) 10 mg tablet Take 1 tablet by mouth twice daily. [id number]-snpp-xqcup-uct ( FORMULA-DHA) 28 mg- 800 mcg- 200 mg cap Take 1 capsule by mouth once daily. No current facility-administered medications for this visit. Allergies As of Date: 10/15/2018 Allergen Noted Reaction SEASONAL ALLERGIES 04/28/2009 Fully Assessed 10/10/2018 REVIEW OF SYSTEMS Bladder: No dysuria, gross hematuria, urinary frequency, urinary urgency, or incontinence. Allergies and current medication updated:Yes EXAM: There were no vitals taken for this visit. GENERAL: pleasant, female in no apparent distress CHEST: Normal inspiratory effort PELVIC: external genitalia normal, normal Bartholin's glands, urethra, [place]'s glands, no vulvar lesions, no cervical lesions, good vaginal support, physiologic discharge present, normal appearing perineal body and perianal region BIMANUAL: uterus normal size, shape and consistency, no adnexal masses and non-tender ASSESSMENT AND PLAN: 23yo female with recurrent vaginal yeast infections Vaginal culture for yeast Pap done Dasia Perkins MD Observed: 10/15/2018 Status: F Source: [place] FUNGUS SCREEN 3:21 AM [facility] REPOSITORY Sp. Request/Comment: - Swab PLEASE DO SENSITIVITIES IF POSITIVE Culture Result - No growth 11 days Performed By: #### FUNGSC #### [facility] [address] [place], [place] [address] PROGRESS Observed: 10/10/2018 Status: COMPLETED Source: [place] 1:08 PM [facility] REPOSITORY HNO ID: [id number] Author: Dasia Perkins Service: (none) Author Type: Physician Type: Progress Notes Filed: 10/10/2018 1:36 PM Note Text: Obstetric History T1 L1 SAB0 TAB0 Ectopic0 Multiple0 Live Births1 Name of Baby 1: Elidia Steve Date: 08/29/18 GA: 39w0d Delivery: C- Section, Low Transverse Apgar1: Not recorded Apgar5: Not recorded Living: Living VISIT Floirda Watkins is a 23 year old year old here for visit. Delivery Summary: Recovery: Feeding: Bottle feeding problems: Stopped after 2-3 weeks Menses since delivery: Resumed Menstrual pattern prior to : Regular periods [place] since delivery: Not resumed Depression: denies symptoms of depression. See depression screening tab. Emotional support: Yes Bowel symptoms: Negative for abdominal discomfort, blood in stools or black stools and change in bowel habits Bladder symptoms: No dysuria, gross hematuria, urinary frequency, urinary urgency, or incontinence; urination just feels different Other issues: None Last Pap: never PAST MEDICAL HISTORY Diagnosis Date - Anemia during in third trimester 06/18/2018 - Chronic seasonal allergic rhinitis 10/18/2017 - Constipation - Interstitial cystitis PAST SURGICAL HISTORY Procedure Laterality Date - COLONOSCOP W/ OR W/O BRSH SPEC 10/30/2017 Colonoscopy - DENTAL SURGERY HX 2004 - EGD W/O OR W/BRUSH/WASH 10/30/2017 EGD FAMILY HISTORY Problem Relation Age of Onset - Cervical Cancer Mother Pre-cancerous - None Father - other (Colitis) Maternal Grandmother - Heart Maternal Grandfather - Diabetes Maternal Uncle - Asthma Brother SOCIAL HISTORY Social History Marital status: Single Spouse name: Years of education: 12 Number of children: 0 Occupational History 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 GENERAL: pleasant, female in no apparent distress HEENT: Normocephalic, atraumatic, mucus membranes moist and no lesions NECK: Supple, full range of motion, no adenopathy and thyroid normal DERMATOLOGY: Normal, without lesions, non-icteric and non-hirsute BREAST: soft, non-tender, symmetric, no dominant mass, normal nipple-areolar complex, no lymphadenopathy and no nipple discharge CHEST: Normal inspiratory effort ABDOMEN: soft, non-tender and no masses. No incisional redness, swelling, or drainage. PELVIC: deferred until next week as patient on menses NEURO: alert and oriented x3,exam grossly non-focal EXTREMITIES: normal ASSESSMENT AND PLAN: 23 year old status post with normal course. Contraception plan: Oral contraceptives - discussed R/B/A AND use Follow up: f/u next week for pap AND vaginitis swab Discussed interpregnancy interval Dasia Perkins MD PROGRESS Observed: 09/11/2018 Status: COMPLETED Source: [place] 10:52 AM [facility] REPOSITORY HNO ID: [id number] Author: Dasia Perkins Service: (none) Author Type: Physician Type: Progress Notes Filed: 09/11/2018 11:12 AM Note Text: DATE OF SERVICE: 09/11/2018 PROBLEM: [place] Watkins presents for postop visit. SURGERY AND DATE: Section on 08/29/18 SUBJECTIVE/INTERVAL HISTORY: [place] Watkins reports that she feels well. OBJECTIVE: ABDOMEN: Abdomen soft, non-tender, no hepatosplenomegaly. INCISION; well healed, c/d/i ASSESSMENT: 2 week post-op PLAN: F/u 6 wk PP check Dasia Perkins MD PROGRESS Observed: 09/03/2018 Status: COMPLETED Source: [place] 10:47 AM [facility] REPOSITORY HNO ID: [id number] Author: Shu Collazo Service: (none) Author Type: News Agent Type: Progress Notes Filed: 09/03/2018 3:35 PM Note Text: SUBJECTIVE: 23 year old female presents for 2 week exam. Outcome: PCS. Date delivered: 08/29/18. Delivering M.D.: Dasia Perkins MD. Delivered in what hospital? [facility] Lochia: Serosa, Normal depression/mood: None Breast/bottle: Breast feeding. If , do you have any drainage or redness at incision site? No Do you have a fever? No Additional Issues: pain at incision site. Patient was offered Percocet prior to discharge from hospital. Patient declined medication but now in increased pain. Taking Tylenol. Shanta Braxton Ma OBJECTIVE: Oral Temperature 99.1 LCTA bilaterally Heart RRR, no murmur Abdomen: soft,no masses, no hepatosplenomegaly and no lymphadenopathy. Fundus firm 3 below U, tender to touch in all quadrants. Incision: dressing dry and intact with dried blood. Erythremic areas on mid abdomen and above dressing. Dressing removed to inspect incision. Steri strips intact. Incision no erythremia, drainage, or warmth. No signs of infection. PLAN: RTO for 2 week check of incision Discussed giving Rx for percocet for pain and to take this to decrease discomfort. Discussed taking temperature, if reached 100.4 to call for re-evaluation of C/S incision. If no relief in pain to call for appointment tomorrow or Saturday. Taking Pepcid for heartburn, discussed if difference in pain or chest pain to go to ER for evaluation. I have reviewed and updated past medical and surgical history, medications and allergies. Shu Collazo APRN.CNM CNOV Observed: 09/03/2018 Status: COMPLETED Source: [place] 10:30 AM [facility] REPOSITORY Office Visit (WOOB) [place] WATKINS ([id number]) 1995 F Date Time Provider Department 09/03/18 10:30 AM SHU COLLAZO (STORMY) WOOB During your visit today, we recorded the following information about you: Temperature Blood pressure Weight 99.1 degrees 124/66 76.7 kg Shu Collazo APRN.CNM 09/03/2018 3:35 PM Signed SUBJECTIVE: 23 year old female presents for 2 week exam. Outcome: PCS. Date delivered: 08/29/18. Delivering M.D.: Dasia Perkins MD. Delivered in what hospital? [facility] Lochia: [place], Normal depression/mood: None Breast/bottle: Breast feeding. If , do you have any drainage or redness at incision site? No Do you have a fever? No Additional Issues: pain at incision site. Patient was offered Percocet prior to discharge from hospital. Patient declined medication but now in increased pain. Taking Tylenol. Shanta Braxton Ma OBJECTIVE: Oral Temperature 99.1 LCTA bilaterally Heart RRR, no murmur Abdomen: soft,no masses, no hepatosplenomegaly and no lymphadenopathy. Fundus firm 3 below U, tender to touch in all quadrants. Incision: dressing dry and intact with dried blood. Erythremic areas on mid abdomen and above dressing. Dressing removed to inspect incision. Steri strips intact. Incision no erythremia, drainage, or warmth. No signs of infection. PLAN: RTO for 2 week check of incision Discussed giving Rx for percocet for pain and to take this to decrease discomfort. Discussed taking temperature, if reached 100.4 to call for re-evaluation of C/S incision. If no relief in pain to call for appointment tomorrow or Saturday. Taking Pepcid for heartburn, discussed if difference in pain or chest pain to go to ER for evaluation. I have reviewed and updated past medical and surgical history, medications and allergies. Shu Collazo APRN.STORMY Referring Provider: SELF [[id number]] Allergies As of Date: 09/03/2018 Noted Allergy Reaction SEASONAL ALLERGIES 04/28/2009 Date Reviewed: 09/03/2018 Reviewed by: Shanta Braxton Ma - Fully Assessed Reason for Visit: Care [85] Cmt: Incision Check Primary Visit Diagnosis:Delivery of by section [O82] Other Visit Diagnosis:Incisional pain [L76.82] Order(s):oxyCODONE-acetaminophen (PERCOCET) 5-325 mg tabletTake 1 tablet by mouth every 6 hours as needed for Pain for up to 7 days.Disp: 24 tabletRfl: 0 Prescriptions as of 09/03/2018 Sig: FERROUS SULFATE 325 MG (65 MG* Take 1 tablet by mouth daily * PROBIOTIC ORAL Take by mouth. FAMOTIDINE 10 MG TABLET Take 1 tablet by mouth twice * OXYCODONE-ACETAMINOPHEN 5 MG-* Take 1 tablet by mouth every * COMPRESSION STOCKING,THIGH HI* 20-30 wt, please fit for prop* VIT NO.116-IRON 28 M* Take 1 capsule by mouth once * Problem List As Of Date 09/03/2018 Noted Resolved Nondisplaced fracture of triquetral bone of rig*INVALID FOR*10/30/2013 Dysmenorrhea in the adolescent [N94.6] INVALID FOR*01/28/2018 Constipation [K59.00] INVALID FOR* More... Chronic seasonal allergic rhinitis [J30.2] INVALID FOR* Spotting in early [O26.859] INVALID FOR*01/28/2018 More... Family history of congenital heart defect [Z82.*INVALID FOR* More... History of hematuria [Z87.448] INVALID FOR* More... Patient requested diagnostic testing [Z01.89] INVALID FOR*01/28/2018 More... Vaginal yeast infection [B37.3] INVALID FOR* More... Anemia during in third trimester [O99*INVALID FOR* More... Breech presentation with problem [O32*INVALID FOR* Prescriptions ordered this encounter Disp Refills Start End OXYCODONE-ACETAMINOPHEN 5 MG-325 MG * 24 t* 0 09/03/2018 09/10/2018 Class: Print RX Route: ORAL Sig: Take 1 tablet by mouth every 6 hours as needed for Pain for up to 7 days. Disposition: Return for 2 week incision check. . Follow-up and Disposition History Recorded Encounter Status:Closed by SHU COLLAZO on 09/03/18 DISCHARGE SUMMARY Observed: 09/01/2018 Status: F Source: [place] 8:32 AM [facility] REPOSITORY [facility] Medical Records Department [address] [place] [address] Discharge Summary 09/01/18 0829 MR#: [id number] Acct: [id number] Name: [place] WATKINS Rep #: [id number] : 1995 23 From: Brandin Florian CNM PCP: Boo Millan MD Status: ADM IN Location: [address] Discharge Date and Diagnosis Date of Admission: 08/29/18 Date of Discharge: 09/01/18 - Primary Discharge Diagnosis LTCS for Breech Presentation - Secondary Discharge Diagnosis Anemia Hospital Course and Treatment Operations: - - Low Transverse Section Procedures: None Summary of Care Provided: The patient is a 23 year old F [who presented at 39 weeks for scheduled LTCS for Breech Presentation. course overall uncomplicated, patient noted to have anemia and was treated with PO Iron supplementation and discharged to home.] Discharge Diet: No Restrictions Discharge Activity: May not drive while taking narcotic pain medications., May Shower May resume sexual activity in: 4-6 weeks, 6-8 weeks Weight Bearing Status: Full weight bearing Call your doctor if your incision/area has: Continuous Slow Oozing, Sudden Increased Bleeding, Increased Pain/ Swelling, Increased Redness, Foul Smelling Discharge Call your doctor if you observe: Fever of 101 or Higher, Numbness or Tingling, Inability to urinate, Inability to have a bowel movement, Using more than one pad per hour, Shortness of breath, Dizziness, Fainting spells, Swelling in the ankles, Chest pain, Increased palpitations (irregular heartbeat), Calf discomfort, Uncontrolled pain Cleanse incision/area with: Soap AND Water, Keep Dressing Clean AND Dry - Remove dressing after 5 days Home Medications: Medications to take at Discharge Famotidine [Pepcid AC] 10 mg PO BID 08/26/18 Ferrous Sulfate [Iron] 1 mg PO QODAY 08/26/18 Vit Calc,Iron,Folic [ Vitamins] 1 tab PO DAILY 08/26/18 l Acidophil/B Lactis/B Longum [Florajen3 Capsule] 1 cap PO DAILY 08/26/18 Acetaminophen [Tylenol] 1,000 mg PO Q8H PRN tablet 08/31/18 Primary Care Physician: Boo Millan MD [Primary Care Provider] - Please Follow Up With: Dasia Perkins When: 2 weeks for incision check and 6 weeks PP Patient Condition:: Good Medical Necessity - Tobacco Use Smoking Status: Former smoker Meaningful Use Info Meaningful Use Diagnoses (Choose all that apply): None applicable 09/01/18 0832 <Electronically signed by Brandin Florian CNM> Date Brandin Florian CNM Cosigner Signature (if applicable): Date CC: STORMY Florian; Boo Millan MD Signed DISCHARGE SUMMARY Observed: 08/31/2018 Status: F Source: [place] 12:04 PM [facility] REPOSITORY [facility] Medical Records Department [address] [place] [address] [place] [address] Discharge Summary 08/31/18 1203 MR#: [id number] Acct: [id number] Name: FLORIDA WATKINS Rep #: [id number] : 1995 23 From: Shu Collazo CNM PCP: Boo Millan MD Status: ADM IN Y Location: IN326-3 Discharge Date and Diagnosis Date of Admission: 08/29/18 Date of Discharge: 08/31/18 - Primary Discharge Diagnosis Section Hospital Course and Treatment Operations: - - Low Transverse Section Summary of Care Provided: The patient is a 23 year old F [] Discharge Diet: No Restrictions Discharge Activity: May not drive while taking narcotic pain medications., May Shower May resume sexual activity in: 4-6 weeks Weight Bearing Status: Full weight bearing Call your doctor if your incision/area has: Continuous Slow Oozing, Sudden Increased Bleeding, Increased Pain/ Swelling, Increased Redness, Foul Smelling Discharge Call your doctor if you observe: Fever of 101 or Higher, Numbness or Tingling, Inability to urinate, Inability to have a bowel movement, Using more than one pad per hour, Shortness of breath, Dizziness, Fainting spells, Swelling in the ankles, Chest pain, Increased palpitations (irregular heartbeat), Calf discomfort, Uncontrolled pain Cleanse incision/area with: Soap AND Water, Keep Dressing Clean AND Dry - Remove dressing after 5 days Home Medications: Medications to take at Discharge Famotidine [Pepcid AC] 10 mg PO BID 08/26/18 Ferrous Sulfate [Iron] 1 mg PO QODAY 08/26/18 Vit Calc,Iron,Folic [ Vitamins] 1 tab PO DAILY 08/26/18 Terconazole [Terazol 7] 45 gm VG DAILY 08/26/18 l Acidophil/B Lactis/B Longum [Florajen3 Capsule] 1 cap PO DAILY 08/26/18 Primary Care Physician: Boo Millan MD [Primary Care Provider] - Please Follow Up With: Dasia Perkins Medical Necessity - Tobacco Use Smoking Status: Former smoker Meaningful Use Info Meaningful Use Diagnoses (Choose all that apply): None applicable 08/31/18 1204 <Electronically signed by Shu Collazo CNM> Date Shu Collazo CNM Cosigner Signature (if applicable): Date CC: STORMY Collazo; Boo Millan MD Signed DISCHARGE INSTRUCTION Observed: 08/31/2018 Status: F Source: [place] 12:03 PM [facility] REPOSITORY [facility] Medical Records Department [address] [place] [address] Instructions for Home/Discharge Instructions 08/31/18 1201 MR#: [id number] Acct: [id number] Name: FLORIDA WATKINS Rep #: [id number] : 1995 23 From: Shu Collazo CNM PCP: Boo Millan MD Status: ADM IN Discharge Diet: No Restrictions Discharge Activity: May not drive while taking narcotic pain medications., May Shower May resume sexual activity in: 4-6 weeks Weight Bearing Status: Full weight bearing Lifting Restrictions: No more than 10 lbs Call your doctor if your incision/area has: Continuous Slow Oozing, Sudden Increased Bleeding, Increased Pain/ Swelling, Increased Redness, Foul Smelling Discharge Call your doctor if you observe: Fever of 101 or Higher, Numbness or Tingling, Inability to urinate, Inability to have a bowel movement, Using more than one pad per hour, Shortness of breath, Dizziness, Fainting spells, Swelling in the ankles, Chest pain, Increased palpitations (irregular heartbeat), Calf discomfort, Uncontrolled pain Cleanse incision/area with: Soap AND Water, Keep Dressing Clean AND Dry - Remove dressing after 5 days Additional Instructions: If you experience any of the following, contact your healthcare provider. * Bleeding that soaks a pad every hour for 2 hours * Fever 100.4 or higher * Unrelieved incision or abdominal pain * Swelling, redness, discharge or bleeding from your incision or episiotomy site * Your incision begins to separate * Problems urinating (including inability to urinate or burning while urinating). * Visual changes * Severe headache * Flu-like symptoms * Pain or redness in one of both of your breasts * Pain, warmth, tenderness or swelling in your legs, especially the calf area * Frequent nausea and vomiting * Symptoms of depression or anxiety If you experience any of the following, call 911 or go to the nearest Emergency Room. * Chest pain * Problems breathing * Seizure activity * Partial or complete paralysis of a body part, slurred speech, weakness or drooping of the face, or a sudden inability to walk or hold your balance Allergies/Adverse Reactions: Allergies No Known Allergies Allergy (Verified 08/26/18 09:11) Medications to take at Discharge Famotidine [Pepcid AC] 10 mg PO BID 08/26/18 Ferrous Sulfate [Iron] 1 mg PO QODAY 08/26/18 Vit Calc,Iron,Folic [ Vitamins] 1 tab PO DAILY 08/26/18 Terconazole [Terazol 7] 45 gm VG DAILY 08/26/18 l Acidophil/B Lactis/B Longum [Florajen3 Capsule] 1 cap PO DAILY 08/26/18 Please Follow Up With: Dasia Perkins When: 2 weeks for incision check and 6 weeks for visit. Primary Care Physician: Boo Millan MD [Primary Care Provider] - Test Results: Test results from this visit will be discussed in further detail at your follow-up appointment, if applicable. 08/31/18 1203 <Electronically signed by Shu Collazo CNM> Date Shu Collazo CNM CC: Boo Millan MD CBC-COMPLETE BLOOD CNT Collected: 08/30/2018 Status: F Source: [place] NO DIFF 8:00 AM [facility] REPOSITORY Order Comment: Comments: Day #1 Reason for Laboratory Test TYPE CODE TESTS RESULT OUT OF RANGE REFERENCE UNITS LAB L100.1000 4.4-11.0 K/mm3 Normal WBC 9.8 LAB L100.1200 4.2-5.4 M/mm3 Low RBC 3.08 LAB L100.1300 12.0-15.0 g/dl Low HGB 9.3 LAB L100.1400 37-47 % Low HCT 27.5 LAB L100.1500 81-99 fL Normal MCV 89.3 LAB L100.1600 27.0-32.0 pg Normal MCH 30.2 LAB L100.1700 32-36 g/gl Normal MCHC 33.8 LAB L100.1810 11.6-14.6 % Normal RDW CV 13.7 LAB L100.1820 35.1-43.9 fl High RDW SD 44.4 LAB L100.1900 150-450 K/mm3 Low PLT 138 LAB L100.2000 6.2-12.0 fl Normal MPV 8.3 Performed By: #### L100.0500 #### [facility] [address] [facility] [place], [address] CBC-COMPLETE BLOOD CNT Collected: 08/29/2018 Status: F Source: [place] NO DIFF 10:45 AM [facility] REPOSITORY TYPE CODE TESTS RESULT OUT OF RANGE REFERENCE UNITS LAB L100.1000 4.4-11.0 K/mm3 High WBC 14.1 LAB L100.1200 4.2-5.4 M/mm3 Low RBC 3.53 LAB L100.1300 12.0-15.0 g/dl Low HGB 10.7 LAB L100.1400 37-47 % Low HCT 31.6 LAB L100.1500 81-99 fL Normal MCV 89.5 LAB L100.1600 27.0-32.0 pg Normal MCH 30.3 LAB L100.1700 32-36 g/gl Normal MCHC 33.9 LAB L100.1810 11.6-14.6 % Normal RDW CV 13.2 LAB L100.1820 35.1-43.9 fl Normal RDW SD 41.8 LAB L100.1900 150-450 K/mm3 Normal PLT 212 LAB L100.2000 6.2-12.0 fl Normal MPV 8.8 Performed By: #### L100.0500, L300.3900, L300.4310 #### [facility] [address] [facility] [place], [address] PROTHROMBIN TIME W/INR Collected: 08/29/2018 Status: F Source: [place] 10:45 AM [facility] REPOSITORY TYPE CODE TESTS RESULT OUT OF RANGE REFERENCE UNITS LAB L300.4150 11.7-14.9 SECONDS Normal PROTIME 13.1 LAB L300.4200 Normal INR 1.0 Performed By: #### L100.0500, L300.3900, L300.4310 #### [facility] [address], [address] PARTIAL THROMBOPLAST Collected: 08/29/2018 Status: F Source: [place] TIME 10:45 AM [facility] REPOSITORY TYPE CODE TESTS RESULT OUT OF RANGE REFERENCE UNITS LAB L300.4310 24.1-36.2 Seconds Normal PTT 26.2 Performed By: #### L100.0500, L300.3900, L300.4310 #### [facility] [address] [place], [address] OPERATIVE REPORT Observed: 08/29/2018 Status: F Source: [place] 9:21 AM [facility] REPOSITORY [facility] Medical Records Department [address] [facility] [place] [address] Operative Report 08/29/18 0913 MR#: [id number] Acct: [id number] Name: FLORIDA WATKINS Rep #: [id number] : 1995 23 From: Dasia Perkins PCP: Boo Millan MD Status: ADM IN Location: MI909-1 Delivery Classification: Scheduled Final CLAUS: 09/05/18 Gestational age: 39 Weeks and 0 Days Indications for : Breech Description of Procedure: Patient taken to OR where spinal anesthesia was placed. She was prepped and draped in normal sterile fashion in a dorsal lithotomy position with a leftward tilt. After ensuring adequacy of anesthesia the Pfannensteil skin incision was made and carried through to the underlying fascia with a bovie. The fascia was incised in the midline and carried laterally with the Rodriguez scissors. The rectus muscles were in the midline and the peritoneum was entered bluntly. The bladder flap was dissected down carefully with the Metzenbaum scissors and blunt dissection. The uterus was incised in a transverse fashion and then incision extended with cephalocaudad traction. The fetus was breech. Her buttocks were grasped and elevated to the uterine incision. She was delivered with typical breech maneuvers. The 3VC cord was clamped and cut after 30 second delay and the handed off to the waiting RN. The placenta was delivered w/ gentle traction and fundal massage and the uterus was exteriorized and cleared of all clots and debris. The uterine incision was closed with 1 vicryl suture in a running locked fashion. The bovie was used to further obtain further hemostasis of the uterine incision. A second imbricating layer of monocryl was placed. The uterus was returned to the peritoneal cavity. The pelvis was irrigated AND then cleared of all clots and debris. The uterine incision was reexamined and found to be hemostatic. Some nauj was placed over the uterine incision due to the denuded areas. The parietal peritoneum was reapproximated with running 3 vicryl suture. The fascia was closed with looped PDS suture in a running standard fashion. The subcutaneous tissue was examined AND any bleeding bovie cauterized. The subcutaneous tissue was reapproximated with plain gut suture. The skin was closed in a subcuticular fashion by the ACADEMIC DIRECTOR with me present in the labor and delivery suite. I performed the remainder of the procedure w/ assistance. Amniotic Membrane Rupture Type: Artificial Amniotic Fluid Description: Clear Placenta Disposition: [facility] Drain: Benson to straight drain Cord Entanglement: None Nuchal Cord Compression: Without compression Cord Vessel Description: 3 Vessels Esitmated Blood Loss (ml): 600ml Gender: Female (1 minute): 6 (5 minute): 9 Delayed cord clamping: Yes Pre-op Antibiotic Given: Ancef 2 grams IV x1 Complications: None 08/29/18 0921 <Electronically signed by Dasia Perkins > Date Dasia Perkins CC: Dasia Perkins; Boo Millan MD Signed CBC W/DIFF, AUTOMATED Collected: 08/29/2018 Status: F Source: [place] 5:50 AM [facility] REPOSITORY TYPE CODE TESTS RESULT OUT OF RANGE REFERENCE UNITS LAB L100.1000 4.4-11.0 K/mm3 High WBC 11.9 LAB L100.1200 4.2-5.4 M/mm3 Low RBC 3.71 LAB L100.1300 12.0-15.0 g/dl Low HGB 11.3 LAB L100.1400 37-47 % Low HCT 32.9 LAB L100.1500 81-99 fL Normal MCV 88.7 LAB L100.1600 27.0-32.0 pg Normal MCH 30.5 LAB L100.1700 32-36 g/gl Normal MCHC 34.3 LAB L100.1810 11.6-14.6 % Normal RDW CV 13.3 LAB L100.1820 35.1-43.9 fl Normal RDW SD 41.1 LAB L100.1900 150-450 K/mm3 Normal PLT 200 LAB L100.2000 6.2-12.0 fl Normal MPV 8.6 LAB L100.2100 47-70 % High NEUT% 71.3 LAB L100.2200 19-41 % Low LY% 18.0 LAB L100.2300 0-10 % Normal MONO% 7.3 LAB L100.2400 0-5 % Normal EO% 1.9 LAB L100.2500 0-1 % Normal BASO% 0.2 LAB L100.2550 0.0-0.9 % High IM GRAN % 1.300 Result Comment: IG% - Immature Granulocytes (promyelocytes, myelocytes and metamyelocytes) > 1% indicates that a LEFT SHIFT is Present. LAB L100.2620 2.0-7.7 X10 3/uL High Absolute Neut 8.5 LAB L100.2720 0.83-4.51 X10 3/ul Normal Absolute Lymph 2.13 LAB L100.5500 ADEQ Normal PLT EST ADEQUATE LAB L100.7000 NORM C AND C NORMAL Normal RED CELL MORPH NORM C+C Performed By: #### L100.0100 #### [facility] [address] [facility] [place], [place], [id number] TYPE AND SCREEN Collected: 08/29/2018 Status: F Source: [place] 5:50 AM [facility] REPOSITORY Order Comment: Reason for Type AND Screen/Red Cells: TYPE CODE TESTS RESULT OUT OF RANGE REFERENCE UNITS LAB B10.0800 A Normal BLOOD TYPE GEL POSITIVE LAB B100.4000 Normal Antibody NEGATIVE Screen Performed By: #### B101.7450 #### [facility] [address] [facility] [place], [address] HISTORY PHYSICAL Observed: 08/26/2018 Status: COMPLETED Source: [place] 8:35 AM [facility] REPOSITORY HNO ID: [id number] Author: Dasia Perkins Service: (none) Author Type: Physician Type: HANDP Filed: 08/26/2018 8:41 AM Note Text: HANDP [place] Watkins is a 23 year old female who presents for pre-op. HPI: Patient presents for pre-op visit. Denies complaints. PAST MEDICAL HISTORY Diagnosis Date - Anemia during in third trimester 06/18/2018 - Chronic seasonal allergic rhinitis 10/18/2017 - Constipation - Interstitial cystitis PAST SURGICAL HISTORY Procedure Laterality Date - COLONOSCOP W/ OR W/O BRSH SPEC 10/30/2017 Colonoscopy - DENTAL SURGERY HX 2004 - EGD W/O OR W/BRUSH/WASH 10/30/2017 EGD FAMILY HISTORY Problem Relation Age of Onset - Cervical Cancer Mother Pre-cancerous - None Father - other (Colitis) Maternal Grandmother - Heart Maternal Grandfather - Diabetes Maternal Uncle - Asthma Brother Social History Marital status: Single Spouse name: Years of education: 12 Number of children: 0 Occupational History 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 Comp.Stocking,Thigh,Reg,Medium misc 20-30 wt, please fit for proper size. ferrous sulfate 325 mg (65 mg iron) tablet Take 1 tablet by mouth daily with breakfast. Lactobacillus acidophilus (PROBIOTIC ORAL) Take by mouth. famotidine (PEPCID AC) 10 mg tablet Take 1 tablet by mouth twice daily. qdm648-grmd-oyaqh-one ( FORMULA-DHA) 28 mg- 800 mcg- 200 mg cap Take 1 capsule by mouth once daily. No current facility-administered medications for this visit. Allergies As of Date: 08/26/2018 Allergen Noted Reaction SEASONAL ALLERGIES 04/28/2009 Fully Assessed 08/26/2018 Allergies and current medication updated:Yes EXAM: BP 98/64 Ht 5' 5.354 (1.66m) Wt 180 lb (81.6kg) LMP 11/29/2017 BMI 29.63 kg/(m2). GENERAL: pleasant, female in no apparent distress CHEST: Clear to auscultation Normal inspiratory effort Regular rate and rhythm ABDOMEN: soft, non-tender and no masses NEURO: alert and oriented x3,exam grossly non-focal EXTREMITIES: normal ASSESSMENT AND PLAN: Encounter Diagnosis ICD-10-CM 1. Encounter for supervision of normal first in third trimester Z34.03 URINE OB DIP B/O 2. 38 weeks gestation of Z3A.38 URINE OB DIP B/O 23yo female with breech presentation @ 38AND4 MOD - Discussed R/B/A, will proceed with primary for breech at 39 weeks. R/B/A discussed AND informed consent signed. Declines version. PAT at [facility] scheduled. Yeast infection - continue terazol cream. Routine care Dasia Perkins MD PROGRESS Observed: 08/15/2018 Status: COMPLETED Source: [place] 10:43 AM [facility] [place] REPOSITORY [facility] ID: [id number] Author: Love Strauss Ma Service: (none) Author Type: (none) Type: Progress Notes Filed: 08/15/2018 11:49 AM Note Text: 22 year old female here for INACTIVATED INFLUENZA VACCINE. 8611-5886 Season Patient is identified by name and date of : Yes [] CONTRAINDICATIONS color enhanced section Age less than 6 months? No Allergy to eggs, chicken, chicken feathers, or chicken dander? No Allergy to thimerosal (a preservative) or formaldehyde, gelatin? No History of severe reaction to any vaccine component or a previous dose of influenza vaccination? No History of Guillain-Mack Syndrome within 6 weeks after a previous influenza vaccine? No Patient is not moderately or severely ill? No Current temperature greater or equal to 100.4F? No History of Bone Marrow Transplant prior 6 months or solid organ transplant in the past 3 months ? No History of fainting after a prior injection or medical procedure? No- ? If patient has fainted in the past, the CDC recommends sitting or lying down for 15 minutes after the vaccination. [] VERIFICATION color enhanced section Was the answer Yes for any of the above contraindications? No contraindications present. Acceptable to proceed with vaccine. Patient/guardian agrees the above answers are true to the best of their knowledge? Yes Flu vaccine information sheet given? Yes See immunization activity in [facility] for details of immunizations adminstered today. Patient age: [age] year old For The 1463-9776 Flu Season 6-35 months old: Fluzone 0.25 ml - IM (Preservative Free) 3 years of age: Fluzone 0.5 ml - IM (Preservative Free) 3 years and older: Fluzone 0.5 ml- IM-(with Preservatives) 65+ years old: 2-49 years old Fluzone High-Dose 0.5 ml - IM (Preservative Free) FLUMIST- intranasal REMEMBER: If patient is less than 9 years of age and this is the first vaccine of Influenza to be received in any flu season, they should receive a second dose in one months time. Observed: 08/15/2018 Status: F Source: [place] FUNGUS SCREEN 3:11 AM [facility] REPOSITORY Sp. Request/Comment: - Swab Culture Result - Many Yeast, not Wade albicans --> ABNORMAL ALERT Performed By: #### FUNGSC #### [facility] [employer] [place], [place] [address] GROUP B STREP PCR Collected: 08/08/2018 Status: F Source: [place] 9:48 PM [facility] REPOSITORY TYPE CODE TESTS RESULT OUT OF REFERENCE UNITS RANGE LAB GBPCRT Negative for GROUP Group B B STREP PCR Streptococcus by PCR. Performed By: #### GBPCR #### [facility] [employer] [place], [place] [address] Observed: 08/08/2018 Status: F Source: [place] BACT/CAND VAG GRM ST 9:18 PM [facility] REPOSITORY Sp. Request/Comment: - Swab Smear Result - BACTERIAL VAGINOSIS RESULT: Stain results consistent with normal vaginal best. Many --> ABNORMAL ALERT Budding yeast --> ABNORMAL ALERT Many Polymorphonuclear leukocytes Performed By: #### BVCNSM #### [facility] [employer] [address] [place], [place] [address] CNCO Observed: 08/08/2018 Status: COMPLETED Source: [place] 12:00 AM [facility] [place] REPOSITORY Letter Text Dasia Perkins MD [facility] [address] [place], [place] [address] 08/08/2018 [place] Watkins [address] [place] [id number] [facility]#: [id number] Dear Florida, This letter is to confirm with you the dates and times of your upcoming surgery: Surgery is scheduled at [facility] on 08/29/18 at 7:30am Pre-Op at Dr. Perkins' Office is on 08/26/18 at 8:00am Pre-Admission Testing at [facility] is on 08/26/18 at 9:00am *They will give you an arrival time for date of surgery at this appointment 2 Week Post-Op at Dr. Perkins' Office is on 09/11/18 at 10:00am In addition, we will do a precertification prior to your surgery. This means we will give your insurance company the medical information they need to make a predetermination. This is not a guarantee of payment and you will need to call your insurance company to verify benefits and coverage. If you are self-pay and/or receive [facility] Financial Assistance, and are having surgery at [facility], please call them at [phone] to make financial arrangements. We will only call you if there is a problem. If you have any questions, please feel free to call us at the phone number above. We appreciate your confidence in choosing the [facility] for your medical care and we look forward to seeing you at your next appointment. Thank you, [facility] Observed: 07/25/2018 Status: F Source: [place] BACT VAG GRAM STAIN 3:25 PM [facility] REPOSITORY Sp. Request/Comment: - Swab Smear Result - BACTERIAL VAGINOSIS RESULT: Stain results consistent with normal vaginal best. Moderate --> ABNORMAL ALERT Yeast --> ABNORMAL ALERT Moderate Polymorphonuclear leukocytes Performed By: #### BVSTN #### [facility] [address] [place], [place] [address] PROGRESS Observed: 07/25/2018 Status: COMPLETED Source: [place] 2:59 PM [facility] REPOSITORY HNO ID: [id number] Author: Love Strauss Ma Service: (none) Author Type: (none) Type: Progress Notes Filed: 07/25/2018 3:28 PM Note Text: Patient identified by name and date of . [place] Watkins presents today for a vaccination of Tdap. Patient denies an allergy to latex: yes Patient denies a severe (life-threatening) allergy to a previous dose of Tdap, DTP, DTaP, DT or Td vaccine. Yes Patient denies history of epilepsy or neurological problems: Yes Patient is afebrile and denies being moderately or severely ill: Yes Patient denies history of Guillain-Mack Syndrome (a severe paralytic illness): Yes Tdap Adacel injection was given without incident. See immunizations for details of immunizations administered today. VIS sheet provided: Yes Provider Dasia Perkins MD was present in office at time of injection. CNOV Observed: 07/08/2018 Status: COMPLETED Source: [place] 3:45 PM [facility] REPOSITORY Office Visit (WOOB) FLORIDA WATKINS ([id number]) 1995 F Date Time Provider Department 07/08/18 3:45 PM BRANDIN FLORIAN (STORMY) WOOB During your visit today, we recorded the following information about you: Blood pressure Weight 112/70 76.1 kg Ellie Freire Ma 07/08/2018 3:42 PM Addendum SEQUENTIAL SCREENINGS The [facility] offers sequential screenings for women who are interested in screenings for chromosomal abnormalities and certain defects during a . The sequential screen combines ultrasound and blood tests to determine the risk of chromosomal abnormalities, including Down's Syndrome (Trisomy 21) and Trisomy 18, as well as open neural tube defects including spina bifida. Ultrasound examination is performed between 11 weeks and 13 weeks gestational age. Blood tests are drawn after the ultrasound and again later in the between 15 and 21 weeks gestational age. Please let your physician know if you are interested in this testing. It will require an appointment with our armored service technician. This is not an ultrasound performed by a physician in our office during a routine visit. Calcium/Magnesium supplement. (Magnesium 250mg or 300mg) Ca/Ma supplement can be taken with dairy products, milk, cheese, etc Iron supplement is absorbed best with [place], Vitamin C (Oranges, Cranberry Juice, green leafy vegetables) SIGNS AND SYMPTOMS OF LABOR 1. Contractions every 10 minutes or more often 2. Clear, pink, or brownish fluid (water) leaking from vagina 3. Feeling that baby is pushing down, pressure 4. Low, dull backache 5. Cramps that feel like a period 6. Cramps with or without diarrhea If you notice any of the above symptoms, contact our office at [phone] and ask to speak with a nurse. After hours, you can call doctors registry at [phone] OR call [facility] at [phone] and ask to have the doctor automation test developer paged. If you consider this an emergency, dial 0-4-5 or go to your nearest emergency department. NEED HELP? Are you dealing with a violent or abusive relationship? Are you a victim of rape or sexual assult? Call [facility] ([place]) 24 hour Crisis Hotline: 713.652.5796 or 098-850-1362. MANUAL Your Guide to a Healthy manual is now on-line. Visit [email or web address] to download your free copy Referring Provider: BRANDIN FLORIAN ([facility]) [[id number]] Allergies As of Date: 07/08/2018 Noted Allergy Reaction SEASONAL ALLERGIES 04/28/2009 Date Reviewed: 07/08/2018 Reviewed by: Brandin BrunsonAnna Jaques HospitalCristina Florian - Fully Assessed Reason for Visit: Care [86] Primary Visit Diagnosis:Encounter for supervision of normal first in third trimester [Z34.03] Other Visit Diagnosis:31 weeks gestation of [Z3A.31] Order(s):URINE OB DIP B/O [[id number]] Order #: [id number] Prescriptions as of 07/08/2018 Sig: FERROUS SULFATE 325 MG (65 MG* Take 1 tablet by mouth daily * TERCONAZOLE 0.4 % VAGINAL CRE* Use 1 Applicator vaginally on* PROBIOTIC ORAL Take by mouth. FAMOTIDINE 10 MG TABLET Take 1 tablet by mouth twice * VIT NO.116-IRON 28 M* Take 1 capsule by mouth once * Problem List As Of Date 07/08/2018 Noted Resolved Nondisplaced fracture of triquetral bone of rig*INVALID FOR*10/30/2013 Dysmenorrhea in the adolescent [N94.6] INVALID FOR*01/28/2018 Constipation [K59.00] INVALID FOR* More... Chronic seasonal allergic rhinitis [J30.2] INVALID FOR* Spotting in early [O26.859] INVALID FOR*01/28/2018 More... Family history of congenital heart defect [Z82.*INVALID FOR* More... History of hematuria [Z87.448] INVALID FOR* More... Patient requested diagnostic testing [Z01.89] INVALID FOR*01/28/2018 More... Vaginal yeast infection [B37.3] INVALID FOR* More... Anemia during in third trimester [O99*INVALID FOR* More... Other instructions from your clinician: SEQUENTIAL SCREENINGS The [facility] offers sequential screenings for women who are interested in screenings for chromosomal abnormalities and certain defects during a . The sequential screen combines ultrasound and blood tests to determine the risk of chromosomal abnormalities, including Down's Syndrome (Trisomy 21) and Trisomy 18, as well as open neural tube defects including spina bifida. Ultrasound examination is performed between 11 weeks and 13 weeks gestational age. Blood tests are drawn after the ultrasound and again later in the between 15 and 21 weeks gestational age. Please let your physician know if you are interested in this testing. It will require an appointment with our armored service technician. This is not an ultrasound performed by a physician in our office during a routine visit. Calcium/Magnesium supplement. (Magnesium 250mg or 300mg) Ca/Ma supplement can be taken with dairy products, milk, cheese, etc Iron supplement is absorbed best with [place], Vitamin C (Oranges, Cranberry Juice, green leafy vegetables) SIGNS AND SYMPTOMS OF LABOR 1. Contractions every 10 minutes or more often 2. Clear, pink, or brownish fluid (water) leaking from vagina 3. Feeling that baby is pushing down, pressure 4. Low, dull backache 5. Cramps that feel like a period 6. Cramps with or without diarrhea If you notice any of the above symptoms, contact our office at [phone] and ask to speak with a nurse. After hours, you can call doctors registry at [phone] OR call [facility] at [phone] and ask to have the doctor automation test developer paged. If you consider this an emergency, dial 2-1-8 or go to your nearest emergency department. NEED HELP? Are you dealing with a violent or abusive relationship? Are you a victim of rape or sexual assult? Call [facility] ([place]) 24 hour Crisis Hotline: 152.469.2117 or 941-397-3686. MANUAL Your Guide to a Healthy manual is now on-line. Visit [email or web address] to download your free copy Disposition: Return in about 2 weeks (around 07/22/2018), or if symptoms worsen or fail to improve. Follow-up and Disposition History Recorded Encounter Status:Closed by BRANDIN FLORIAN CNM on 07/08/18 CBC Collected: 06/17/2018 Status: F Source: [place] 3:41 PM [facility] RE[facility] TYPE CODE TESTS RESULT OUT OF REFERENCE UNITS RANGE LAB WBC 3.70-11.00 k/uL WBC High 12.25 LAB RBC 3.90-5.20 m/uL Low RBC 3.62 LAB HGB 11.5-15.5 g/dL Low Hemoglobin 10.9 LAB HCT 36.0-46.0 % Low Hematocrit 33.4 LAB MCV 80.0-100.0 fL MCV 92.3 LAB MCH 26.0-34.0 pG MCH 30.1 LAB MCHC 30.5-36.0 g/dL MCHC 32.6 LAB RDWCV 11.5-15.0 % RDW-CV 12.9 LAB PLTCT 150-400 k/uL Platelet Count 252 LAB MPV 9.0-12.7 fL MPV 9.2 LAB ABSNUC <0.01 k/uL Absolute nRBC <0.01 Performed By: #### CBC #### [place] [address] 50G, 1HR GEST. Collected: 06/17/2018 Status: F Source: [place] GSCRN 3:41 PM [facility] REPOSITORY TYPE CODE TESTS RESULT OUT OF REFERENCE UNITS RANGE LAB GLUP 74-134 mg/dL Glucose 117 Screen, Preg Result Comment: [place] [employer] (Juarez/Stephanie) guidelines state a gestational diabetes mellitus positive screen is made, in women not previously diagnosed with overt diabetes, when the 1 hr plasma glucose level is equal to or above 140 mg/dL. The [facility] [employer] [facility] recommends a 135 mg/dL cutoff. Performed By: #### GLTGST #### [place] [address] GC/CHLAMYDIA AMPLIF Collected: 06/11/2018 Status: F Source: [place] 3:45 PM [facility] REPOSITORY TYPE CODE TESTS RESULT OUT OF REFERENCE UNITS RANGE LAB GCCTSR GC/Chlam Amp Cervix Source LAB GCAMPL GC Negative Amplification for Neisseria gonorrhoeae by amplification. LAB CLAMPL Chlamydia Negative Amplif for Chlamydia trachomatis by amplification. Performed By: #### GCCT #### [place] [address] Observed: 06/11/2018 Status: F Source: [place] BACT/CAND VAG [facility] 3:45 PM [facility] REPOSITORY Sp. Request/Comment: - Swab Smear Result - BACTERIAL VAGINOSIS RESULT: Stain results consistent with normal vaginal best. Moderate --> ABNORMAL ALERT Budding yeast --> ABNORMAL ALERT Rare Polymorphonuclear leukocytes Performed By: #### BVCNSM #### [address], [place] [address] FIBRONECTIN Collected: 06/11/2018 Status: F Source: [place] 3:45 PM [facility] REPOS[facility]ORY TYPE CODE TESTS RESULT OUT OF RANGE REFERENCE UNITS LAB L205.0100 Normal fFN Negative Performed By: #### L205.0000 #### [facility] [address] [place], [place], [address] Observed: 05/27/2018 Status: F Source: [place] BACT/CAND VAG [facility] 1:43 AM [facility] REPOSITORY Sp. Request/Comment: - Swab Smear Result - BACTERIAL VAGINOSIS RESULT: Stain results consistent with normal vaginal best. Many --> ABNORMAL ALERT Budding yeast --> ABNORMAL ALERT Many Polymorphonuclear leukocytes Performed By: #### BVCNSM #### [facility] [place] [id number] Observed: 05/09/2018 Status: F Source: [place] URINE CULTURE 11:35 AM [facility] REPOSITORY Sp. Request/Comment: - Specimen received in preservative Culture Result - 10,000 - <50,000 CFU/ml Normal urogenital best Performed By: #### URCUL #### [facility] [address] [place] [address] PROGRESS Observed: 05/09/2018 Status: COMPLETED Source: [place] 10:48 AM [facility] REPOSITORY HNO ID: [id number] Author: Lamar Young Service: (none) Author Type: Nurse Practitioner Type: Progress Notes Filed: 05/09/2018 11:24 AM Note Text: Subjective HPI HPI [place] Watkins is a 22 year old female who presents today for CC of right ear pain. This started 3 days ago. Has tried nasal saline. Symptoms are worsened by nothing. Risk factors none. Patient 23 weeks . Burning with urination for 1 week. Has been treated by OB for yeast few times. .Patient presents with: Ear Pain: x 3 days right ear pain PAST MEDICAL HISTORY Diagnosis Date - Chronic seasonal allergic rhinitis 10/18/2017 - Constipation - Interstitial cystitis PAST SURGICAL HISTORY Procedure Laterality Date - COLONOSCOP W/ OR W/O BRSH SPEC 10/30/2017 Colonoscopy - DENTAL SURGERY HX 2004 - EGD W/O OR W/BRUSH/WASH 10/30/2017 EGD ALLERGIES Seasonal Allergies MEDICATIONS Lactobacillus acidophilus (PROBIOTIC ORAL) Take by mouth. famotidine (PEPCID AC) 10 mg tablet Take 1 tablet by mouth twice daily. [id number]-svs ( FORMULA-DHA) 28 mg- 800 mcg- 200 mg cap Take 1 capsule by mouth once daily. FAMILY HISTORY Problem Relation Age of Onset - Cervical Cancer Mother Pre-cancerous - None Father - Colitis [OTHER] Maternal Grandmother - Heart Maternal Grandfather - Diabetes Maternal Uncle - Asthma Brother Social History Substance Use Topics - Smoking status: Former Smoker Years: 0.50 Quit date: 2013 - Smokeless tobacco: Never Used Comment: step dad outside - Alcohol use No Review of Systems Constitutional: Negative for chills, fever, malaise/fatigue and weight loss. HENT: Positive for congestion and ear pain. Negative for ear discharge, nosebleeds and sore throat. Respiratory: Negative for cough, shortness of breath and wheezing. Cardiovascular: Negative for chest pain and palpitations. Gastrointestinal: Negative for abdominal pain, blood in stool, constipation, diarrhea, heartburn, melena, nausea and vomiting. Genitourinary: Positive for dysuria. Negative for flank pain, frequency, hematuria and urgency. Musculoskeletal: Negative for neck pain. Skin: Negative for itching and rash. Objective Blood pressure 120/72, pulse 88, temperature 36.8 ?C (98.2 ?F), resp. rate 16, weight 69.9 kg (154 lb), last menstrual period 11/29/2017. Physical Exam Constitutional: She is oriented to person, place, and time and well-developed, well-nourished, and in no distress. Non-toxic appearance. She does not have a sickly appearance. No distress. HENT: Head: Normocephalic and atraumatic. Right Ear: Hearing, external ear and ear canal normal. Tympanic membrane is erythematous (mild) and bulging (mild). Tympanic membrane is not perforated. Left Ear: Hearing, tympanic membrane, external ear and ear canal normal. Nose: Nose normal. Mouth/Throat: Uvula is midline, oropharynx is clear and moist and mucous membranes are normal. Eyes: Conjunctivae and lids are normal. Pupils are equal, round, and reactive to light. Right eye exhibits no discharge. Left eye exhibits no discharge. No scleral icterus. Neck: Trachea normal and normal range of motion. Neck supple. Cardiovascular: Normal rate, regular rhythm and normal heart sounds. Pulmonary/Chest: Effort normal and breath sounds normal. Abdominal: Soft. Normal appearance and bowel sounds are normal. There is no hepatosplenomegaly, splenomegaly or hepatomegaly. There is no tenderness. There is no CVA tenderness. Lymphadenopathy: She has no cervical adenopathy. Neurological: She is alert and oriented to person, place, and time. Skin: No rash noted. She is not diaphoretic. ASSESSMENT/PLAN: 1. Acute otitis media, right - ICD9: 382.9, ICD10: H66.91 (primary diagnosis) -mild infection, watch wait period discussed, safety net antibiotic rx provided if pain worsens in next 2 days - Supportive care with plenty of fluids, rest, and analgesia prn. - Follow up in 3-5 days if symptoms persist or worsen. 2. Dysuria - ICD9: 788.1, ICD10: R30.0 Acute -ua negative for leuks, prot, nitrates, blood -I encouraged f/u with handle assembler as they have been treating her for chronic yeast infection. - Send urine for culture - Patient education for prevention given - UA DIP B/O - URINE CULTURE - Will call results Prescription instructions reviewed with patient as applicable. Patient advised if symptoms do not improve or if symptoms worsen sooner, to contact the office for further evaluation by their primary care physician. Potential red flag symptoms discussed with the patient. Reviewed appropriate action plan to take if red flag symptoms occur. Patient agreeable to treatment plan. Lamar Young APRN.SUPERVISOR CRACK OFF CNOV Observed: 05/09/2018 Status: COMPLETED Source: [place] 10:30 AM [facility] REPOSITORY Office Visit (WSTR) FLOR[place] WATKINS ([id number]) 1995 F Date Time Provider Department 05/09/18 10:30 AM LAMAR YOUNG (NATALIA) [facility] During your visit today, we recorded the following information about you: Temperature Pulse Respiration Blood pressure 98.2 degrees 88/minute 16/minute 120/72 Weight 69.9 kg Lamar Young APRN.CNP 05/09/2018 11:24 AM Signed Subjective HPI HPI Florida Watkins is a 22 year old female who presents today for CC of right ear pain. This started 3 days ago. Has tried nasal saline. Symptoms are worsened by nothing. Risk factors none. Patient 23 weeks . Burning with urination for 1 week. Has been treated by OB for yeast few times. .Patient presents with: Ear Pain: x 3 days right ear pain PAST MEDICAL HISTORY Diagnosis Date - Chronic seasonal allergic rhinitis 10/18/2017 - Constipation - Interstitial cystitis PAST SURGICAL HISTORY Procedure Laterality Date - COLONOSCOP W/ OR W/O BRSH SPEC 10/30/2017 Colonoscopy - DENTAL SURGERY HX 2004 - EGD W/O OR W/BRUSH/WASH 10/30/2017 EGD ALLERGIES Seasonal Allergies MEDICATIONS Lactobacillus acidophilus (PROBIOTIC ORAL) Take by mouth. famotidine (PEPCID AC) 10 mg tablet Take 1 tablet by mouth twice daily. [id number]-eflko-nog ( FORMULA-DHA) 28 mg- 800 mcg- 200 mg cap Take 1 capsule by mouth once daily. FAMILY HISTORY Problem Relation Age of Onset - Cervical Cancer Mother Pre-cancerous - None Father - Colitis [OTHER] Maternal Grandmother - Heart Maternal Grandfather - Diabetes Maternal Uncle - Asthma Brother Social History Substance Use Topics - Smoking status: Former Smoker Years: 0.50 Quit date: 2013 - Smokeless tobacco: Never Used Comment: step dad outside - Alcohol use No Review of Systems Constitutional: Negative for chills, fever, malaise/fatigue and weight loss. HENT: Positive for congestion and ear pain. Negative for ear discharge, nosebleeds and sore throat. Respiratory: Negative for cough, shortness of breath and wheezing. Cardiovascular: Negative for chest pain and palpitations. Gastrointestinal: Negative for abdominal pain, blood in stool, constipation, diarrhea, heartburn, melena, nausea and vomiting. Genitourinary: Positive for dysuria. Negative for flank pain, frequency, hematuria and urgency. Musculoskeletal: Negative for neck pain. Skin: Negative for itching and rash. Objective Blood pressure 120/72, pulse 88, temperature 36.8 ?C (98.2 ?F), resp. rate 16, weight 69.9 kg (154 lb), last menstrual period 11/29/2017. Physical Exam Constitutional: She is oriented to person, place, and time and well-developed, well-nourished, and in no distress. Non-toxic appearance. She does not have a sickly appearance. No distress. HENT: Head: Normocephalic and atraumatic. Right Ear: Hearing, external ear and ear canal normal. Tympanic membrane is erythematous (mild) and bulging (mild). Tympanic membrane is not perforated. Left Ear: Hearing, tympanic membrane, external ear and ear canal normal. Nose: Nose normal. Mouth/Throat: Uvula is midline, oropharynx is clear and moist and mucous membranes are normal. Eyes: Conjunctivae and lids are normal. Pupils are equal, round, and reactive to light. Right eye exhibits no discharge. Left eye exhibits no discharge. No scleral icterus. Neck: Trachea normal and normal range of motion. Neck supple. Cardiovascular: Normal rate, regular rhythm and normal heart sounds. Pulmonary/Chest: Effort normal and breath sounds normal. Abdominal: Soft. Normal appearance and bowel sounds are normal. There is no hepatosplenomegaly, splenomegaly or hepatomegaly. There is no tenderness. There is no CVA tenderness. Lymphadenopathy: She has no cervical adenopathy. Neurological: She is alert and oriented to person, place, and time. Skin: No rash noted. She is not diaphoretic. ASSESSMENT/PLAN: 1. Acute otitis media, right - ICD9: 382.9, ICD10: H66.91 (primary diagnosis) -mild infection, watch wait period discussed, safety net antibiotic rx provided if pain worsens in next 2 days - Supportive care with plenty of fluids, rest, and analgesia prn. - Follow up in 3-5 days if symptoms persist or worsen. 2. Dysuria - ICD9: 788.1, ICD10: R30.0 Acute -ua negative for leuks, prot, nitrates, blood -I encouraged f/u with handle assembler as they have been treating her for chronic yeast infection. - Send urine for culture - Patient education for prevention given - UA DIP B/O - URINE CULTURE - Will call results Prescription instructions reviewed with patient as applicable. Patient advised if symptoms do not improve or if symptoms worsen sooner, to contact the office for further evaluation by their primary care physician. Potential red flag symptoms discussed with the patient. Reviewed appropriate action plan to take if red flag symptoms occur. Patient agreeable to treatment plan. Lamar Young APRN.NATALIA Young APRN.CNP 05/09/2018 11:08 AM Signed OTITIS MEDIA GENERAL INFORMATION: Otitis media is an infection of the middle ear. The middle ear sits behind the eardrum. This infection may be caused by a virus or bacteria and often follows a cold. Children often have repeat ear infections. Otitis media is not contagious. INSTRUCTIONS: 1. An antibiotic has been prescribed. It should be taken exactly as prescribed. Do not stop the medicine even if the symptoms go away. 2. Zuji-dah-qotseid pain medication may be taken or other pain medication as prescribed by the doctor. 3. Nothing should be placed in the ear unless instructed by your doctor. 4. The patient may return to school/daycare or work when the temperature is normal (98.6 F or 37 C). 5. The patient should not swim while the ear is infected. CONTACT YOUR DOCTOR IF YOU OR YOUR CHILD: 1. Does not feel better within 36 hours. 2. Develops a temperature over 102E F (39E C). 3. Starts vomiting or has diarrhea. 4. Develops drainage from the affected ear. 5. Has any new problem that may be related to the medicine prescribed. RETURN TO THE ED IF: 1. You or your child has a severe headache or pain around the ear. 2. You or your child notice swelling around the ear. 3. You or your child has a seizure (convulsion), twitching of the facial muscles, or passes out. 4. You or your child is dizzy, has a stiff neck, or cannot walk or talk normally. 5. Your child becomes more irritable or listless (not interested in his or her surroundings, does not get soothed by you holding him or her). Referring Provider: SELF [[id number]] Allergies As of Date: 05/09/2018 Noted Allergy Reaction SEASONAL ALLERGIES 04/28/2009 Date Reviewed: 05/09/2018 Reviewed by: Lamar (Natalia) - Fully Assessed Reason for Visit: Ear Pain [817] Cmt: x 3 days right ear pain Primary Visit Diagnosis:Acute otitis media, right [H66.91] Other Visit Diagnosis:Dysuria [R30.0] Order(s):amoxicillin (AMOXIL) 875 mg tabletTake 1 tablet by mouth twice daily for 10 days.Disp: 20 tabletRfl: 0 UA DIP B/O [[id number]] Order #: [id number] [facility] Order #: [id number] Prescriptions as of 05/09/2018 Sig: AMOXICILLIN 875 MG TABLET Take 1 tablet by mouth twice * PROBIOTIC ORAL Take by mouth. FAMOTIDINE 10 MG TABLET Take 1 tablet by mouth twice * VIT NO.116-IRON 28 M* Take 1 capsule by mouth once * Problem List As Of Date 05/09/2018 Noted Resolved Nondisplaced fracture of triquetral bone of rig*INVALID FOR*10/30/2013 Dysmenorrhea in the adolescent [N94.6] INVALID FOR*01/28/2018 Constipation [K59.00] INVALID FOR* More... Chronic seasonal allergic rhinitis [J30.2] INVALID FOR* Spotting in early [O26.859] INVALID FOR*01/28/2018 More... Family history of congenital heart defect [Z82.*INVALID FOR* More... History of hematuria [Z87.448] INVALID FOR* More... Patient requested diagnostic testing [Z01.89] INVALID FOR*01/28/2018 More... Vaginal yeast infection [B37.3] INVALID FOR* More... Other instructions from your clinician: OTITIS MEDIA GENERAL INFORMATION: Otitis media is an infection of the middle ear. The middle ear sits behind the eardrum. This infection may be caused by a virus or bacteria and often follows a cold. Children often have repeat ear infections. Otitis media is not contagious. INSTRUCTIONS: 1. An antibiotic has been prescribed. It should be taken exactly as prescribed. Do not stop the medicine even if the symptoms go away. 2. Ovlc-clr-twhdpai pain medication may be taken or other pain medication as prescribed by the doctor. 3. Nothing should be placed in the ear unless instructed by your doctor. 4. The patient may return to school/daycare or work when the temperature is normal (98.6 F or 37 C). 5. The patient should not swim while the ear is infected. CONTACT YOUR DOCTOR IF YOU OR YOUR CHILD: 1. Does not feel better within 36 hours. 2. Develops a temperature over 102E F (39E C). 3. Starts vomiting or has diarrhea. 4. Develops drainage from the affected ear. 5. Has any new problem that may be related to the medicine prescribed. RETURN TO THE ED IF: 1. You or your child has a severe headache or pain around the ear. 2. You or your child notice swelling around the ear. 3. You or your child has a seizure (convulsion), twitching of the facial muscles, or passes out. 4. You or your child is dizzy, has a stiff neck, or cannot walk or talk normally. 5. Your child becomes more irritable or listless (not interested in his or her surroundings, does not get soothed by you holding him or her). Prescriptions ordered this encounter Disp Refills Start End AMOXICILLIN 875 MG TABLET 20 t* 0 05/09/2018 05/19/2018 Class: Print RX Route: ORAL Sig: Take 1 tablet by mouth twice daily for 10 days. Encounter Status:Closed by LAMAR YOUNG CNP on 05/09/18 [place] Observed: 05/09/2018 Status: COMPLETED Source: [place] 12:00 AM [facility] REPOSITORY Telephone (WOOB) [place] WATKINS ([id number]) 1995 F Date Time Provider Department 05/09/18 BRANDIN FLORIAN (NINFA) WOOB During your visit today, we recorded the following information about you: Haylie Lancaster DEBORAH 05/09/2018 11:24 AM Signed Pt calling and reporting that she just finished the 7 day terazol for yeast sxs. Pt stated that she is some better but not completely cleared up. Pt is wanting to know if you want her to start the once weekly treatment for the remainder of the ? Pt is wanting this sent to [facility]. Pt was also seen in urgent care for an ear infection and was given amoxicillin. Haylie Florian APRN.CNM 05/09/2018 1:36 PM Signed Yes, I would recommend we do a weekly dosing. I will submit this to [facility] by the end of the day. TAMARA Ballesteros RN 05/09/2018 4:46 PM Signed Patient notified. Sima Mandujano RN Allergies As of Date: 05/09/2018 Noted Allergy Reaction SEASONAL ALLERGIES 04/28/2009 Date Reviewed: 05/09/2018 Reviewed by: Lamar (Yard Conductor) - Fully Assessed Reason for Visit: Question [5796] Order(s):terconazole (TERAZOL 7) 0.4 % vaginal creamUse 1 Applicator vaginally once each week. FOR 7 DAYS.Disp: 45 gRfl: 1 Prescriptions as of 05/09/2018 Sig: AMOXICILLIN 875 MG TABLET Take 1 tablet by mouth twice * TERCONAZOLE 0.4 % VAGINAL CRE* Use 1 Applicator vaginally on* PROBIOTIC ORAL Take by mouth. FAMOTIDINE 10 MG TABLET Take 1 tablet by mouth twice * VIT NO.116-IRON 28 M* Take 1 capsule by mouth once * Problem List As Of Date 05/09/2018 Noted Resolved Nondisplaced fracture of triquetral bone of rig*INVALID FOR*10/30/2013 Dysmenorrhea in the adolescent [N94.6] INVALID FOR*01/28/2018 Constipation [K59.00] INVALID FOR* More... Chronic seasonal allergic rhinitis [J30.2] INVALID FOR* Spotting in early [O26.859] INVALID FOR*01/28/2018 More... Family history of congenital heart defect [Z82.*INVALID FOR* More... History of hematuria [Z87.448] INVALID FOR* More... Patient requested diagnostic testing [Z01.89] INVALID FOR*01/28/2018 More... Vaginal yeast infection [B37.3] INVALID FOR* More... Prescriptions ordered this encounter Disp Refills Start End TERCONAZOLE 0.4 % VAGINAL CREAM 45 g 1 05/09/2018 Route: VAGINAL Sig: Use 1 Applicator vaginally once each week. FOR 7 DAYS. Encounter Status:Closed by BRANDIN FLORIAN CNM on 05/09/18 Observed: 04/28/2018 Status: F Source: [place] BACT/CAND VAG [facility] 2:05 PM [facility] REPOSITORY Sp. Request/Comment: - Swab Smear Result - BACTERIAL VAGINOSIS RESULT: Stain results consistent with normal vaginal best. Many --> ABNORMAL ALERT Yeast --> ABNORMAL ALERT Many Polymorphonuclear leukocytes Performed By: #### BVCNSM #### [place] [phone] Observed: 04/28/2018 Status: F Source: [place] URINE CULTURE 2:05 PM [facility] REPOSITORY Sp. Request/Comment: - Specimen received in preservative Culture Result - No growth (<1,000 CFU/ml) Performed By: #### URCUL #### [place] [address] Observed: 04/17/2018 Status: F Source: [place] URINE CULTURE 3:45 PM [facility] REPOSITORY Sp. Request/Comment: - Specimen received in preservative Culture Result - No growth (<1,000 CFU/ml) Performed By: #### URCUL #### [place] [phone] Observed: 04/16/2018 Status: F Source: [place] [facility]Klass VAG GRAM STAIN 3:30 PM [facility] REPOSITORY Smear Result - BACTERIAL VAGINOSIS RESULT: Stain results consistent with normal vaginal best. Many --> ABNORMAL ALERT Yeast --> ABNORMAL ALERT Moderate Polymorphonuclear leukocytes Performed By: #### BVSTN #### [place] [address] PROGRESS Observed: 04/15/2018 Status: COMPLETED Source: [place] 3:41 PM [facility] REPOSITORY HNO ID: [id number] Author: Kaycee Vasquez Service: (none) Author Type: Physician Type: Progress Notes Filed: 04/15/2018 3:41 PM Note Text: A coyle? fetus in utero with symmetric measurements Adequate growth (AGA). Estimated Date of Delivery: 09/05/18 EGA = 19w4d The anatomy appears normal. There are no evident malformations and /or effusions. No genetic markers are noted. The amniotic fluid volume is within normal limits. The sensitivity of ultrasound in the detection of malformations overall is approximately 35%. RECOMMENDATIONS: - Follow up ultrasound as clinically indicated GC/CHLAMYDIA AMPLIF Collected: 04/15/2018 Status: F Source: [place] 3:30 PM [facility] REPOSITORY TYPE CODE TESTS RESULT OUT OF REFERENCE UNITS RANGE LAB GCCTSR GC/Chlam Amp Cervix Source LAB GCAMPL GC Negative Amplification for Neisseria gonorrhoeae by amplification. LAB CLAMPL Chlamydia Negative Amplif for Chlamydia trachomatis by amplification. Performed By: #### GCCT #### [facility] [place] [address] GC/CHLAMYDIA AMPLIF Collected: 04/08/2018 Status: F Source: [place] 2:15 PM [facility] REPOSITORY TYPE CODE TESTS RESULT OUT OF REFERENCE UNITS RANGE LAB GCCTSR GC/Chlam Amp Cervix Source LAB GCAMPL GC Negative Amplification for Neisseria gonorrhoeae by amplification. LAB CLAMPL Chlamydia Negative Amplif for Chlamydia trachomatis by amplification. Performed By: #### GCCT #### [facility] [address] [place] [address] Observed: 04/08/2018 Status: F Source: [place] URINE CULTURE 2:09 PM [facility] REPOSITORY Sp. Request/Comment: - Specimen received in preservative Culture Result - <10,000 CFU/ml Enterococcus faecalis --> ABNORMAL ALERT Cephalosporins, clindamycin, and TMP-SMX are not effective for the treatment of enterococcal infections. --> ABNORMAL AL ERT Insignificant colony count. No further workup. --> ABNORMAL ALERT 10,000 - <50,000 CFU/ml Normal urogenital best Performed By: #### URCUL #### [place] [address] [place] [address] CNOV Observed: 04/08/2018 Status: COMPLETED Source: [place] 2:00 PM [facility] REPOSITORY Office Visit (WOOB) FLORIDA WATKINS ([id number]) 1995 F Date Time Provider Department 04/08/18 2:00 PM SHU COLLAZO ([facility]) WOOB During your visit today, we recorded the following information about you: Blood pressure Weight 116/66 69.4 kg Shu Collazo APRN.CNM 04/08/2018 4:20 PM Signed Customs Patrol Officer offered: Patient declines. [place] Watkins is a 22 year old female who presents for problem visit for vaginal discharge and itching. HPI: Vaginal discharge, greenish in color, no odor. Has itching and burning with slight cramping. Treated Monistat on 01/28/18, Diflucan on 03/31/18, and does not have any improvement. PAST MEDICAL HISTORY Diagnosis Date - Chronic seasonal allergic rhinitis 10/18/2017 - Constipation - Interstitial cystitis PAST SURGICAL HISTORY Procedure Laterality Date - COLONOSCOP W/ OR W/O BRSH SPEC 10/30/2017 Colonoscopy - DENTAL SURGERY HX 2004 - EGD W/O OR W/BRUSH/WASH 10/30/2017 EGD FAMILY HISTORY Problem Relation Age of Onset - Cervical Cancer Mother Pre-cancerous - None Father - Colitis [OTHER] Maternal Grandmother - Heart Maternal Grandfather - Diabetes Maternal Uncle - Asthma Brother Social History Marital status: Single Spouse name: Years of education: 12 Number of children: 0 Occupational History Occupation Employer Comment [employer] Social History Main Topics Smoking status: Former Smoker Packs/day: 0.00 Years: 0.50 Quit date: 2013 Smokeless tobacco: Never Used Comment: step dad outside Alcohol use: No Drug use: No Sexual activity: Yes Partners with: Male control/protection: None Other Topics Concern Service No Sleep Concern No Special Diet No Exercise No Seat Belt Yes Social History Narrative Lives with mom, step father, brother and fiance 1 dog Current Outpatient Prescriptions: famotidine (PEPCID AC) 10 mg tablet Take 1 tablet by mouth twice daily. [id number] ( FORMULA-DHA) 28 mg- 800 mcg- 200 mg cap Take 1 capsule by mouth once daily. No current facility-administered medications for this visit. Allergies As of Date: 04/08/2018 Allergen Noted Reaction SEASONAL ALLERGIES 04/28/2009 Fully Assessed 03/27/2018 REVIEW OF SYSTEMS Abdomen: No bloating, early satiety, indigestion, or increased flatulence. No abdominal pain, nausea, vomiting, diarrhea, or constipation. Bladder: No dysuria, gross hematuria, urinary frequency, urinary urgency, or incontinence. Breast: No breast lumps, nipple d/c, overlying skin changes, redness or skin retraction. Expanded ROS: N/A Allergies and current medication updated:Yes EXAM: BP 116/66 Wt 153 lb (69.4kg) LMP 11/29/2017 GENERAL: pleasant, female in no apparent distress HEENT: Normocephalic and atraumatic NECK: Supple and full range of motion PELVIC: external genitalia normal, normal Bartholin's glands, urethra, [place]'s glands, no vulvar lesions, no cervical lesions, good vaginal support, physiologic discharge present, normal appearing perineal body and perianal region. Cervix friable. NEURO: alert and oriented x3,exam grossly non-focal EXTREMITIES: normal FHT 160 Urine dip shows: Glucose, Urine (mg/dL) Date Value 04/08/2018 Neg Bilirubin, Urine (no units) Date Value 04/08/2018 Neg Bilirubin, Urine (no units) Date Value 04/08/2018 Neg Ketones, Urine (no units) Date Value 04/08/2018 Neg Specific Graham, Ur (no units) Date Value 04/08/2018 1.015 Hemoglobin/Blood,Ur (no units) Date Value 04/08/2018 Neg No results found for: PH Protein, Urine (mg/dL) Date Value 04/08/2018 Neg Urobilinogen, Urine (EU) Date Value 04/08/2018 Normal No components found for: NITR Leukocytes (no units) Date Value 04/08/2018 Moderate Color/Appearance (comment:) Date Value 04/08/2018 yellow/clear ASSESSMENT AND PLAN: 1. Dysuria - ICD9: 788.1, ICD10: R30.0 (primary diagnosis) - Send urine for culture - Patient education for prevention given - UA DIP B/O - URINE CULTURE 2. Vaginal discharge during in second trimester - ICD9: 646.83, 623.5, ICD10: O26.892, N89.8 - GC/CHLAMYDIA DNA DET - TRICHOMONAS PREP - BACT/WADE VAG GRAM STAIN TAMARA Elizabeth APRN.CNM 04/10/2018 2:11 PM Signed Addended by: SHU COLLAZO on: 04/10/2018 02:11 PM Modules accepted: Orders Referring Provider: SELF [200] Allergies As of Date: 04/08/2018 Noted Allergy Reaction SEASONAL ALLERGIES 04/28/2009 Date Reviewed: 03/27/2018 Reviewed by: Love Strauss Ma - Fully Assessed Reason for Visit: Vaginal Problem [117] Cmt: Vaginal discharge and itching UTI [116] Primary Visit Diagnosis:Dysuria [R30.0] Other Visit Diagnosis:Vaginal discharge during in second trimester [O26.892, N89.8] Order(s):UA DIP B/O [[id number]] Order #: [id number] GC/CHLAMYDIA DNA DET [SQGCCAMP] Order #: [id number]. #:[id number] TRICHOMONAS PREP [SQTRICHO] Order #: [id number]. #:[id number] BACT/WADE VAG GRAM STAIN [SQBVCNSM] Order #: [id number] FUTURE URINE CULTURE [SQURCUL] Order #: [id number]. #:[id number] BACT/WADE VAG GRAM STAIN [SQBVCNSM] Order #: [id number]. #:[id number] terconazole (TERAZOL 7) 0.4 % vaginal creamUse 1 Applicator vaginally daily at bedtime for 7 days. FOR 7 DAYS.Disp: 45 gRfl: 0 nitrofurantoin monohydrate and macrocrystal (MACROBID) 100 mg capsuleTake 1 capsule by mouth twice daily for 7 days.Disp: 14 capsuleRfl: 0 Prescriptions as of 04/08/2018 Sig: TERCONAZOLE 0.4 % VAGINAL CRE* Use 1 Applicator vaginally da* NITROFURANTOIN MONOHYDRATE AND * Take 1 capsule by mouth twice* FAMOTIDINE 10 MG TABLET Take 1 tablet by mouth twice * VIT NO.116-IRON 28 M* Take 1 capsule by mouth once * Problem List As Of Date 04/08/2018 Noted Resolved Nondisplaced fracture of triquetral bone of rig*INVALID FOR*10/30/2013 Dysmenorrhea in the adolescent [N94.6] INVALID FOR*01/28/2018 Constipation [K59.00] INVALID FOR* More... Chronic seasonal allergic rhinitis [J30.2] INVALID FOR* Spotting in early [O26.859] INVALID FOR*01/28/2018 More... Family history of congenital heart defect [Z82.*INVALID FOR* More... History of hematuria [Z87.448] INVALID FOR* More... Patient requested diagnostic testing [Z01.89] INVALID FOR*01/28/2018 More... Prescriptions ordered this encounter Disp Refills Start End TERCONAZOLE 0.4 % VAGINAL CREAM 45 g 0 04/10/2018 04/17/2018 Route: VAGINAL Sig: Use 1 Applicator vaginally daily at bedtime for 7 days. FOR 7 DAYS. NITROFURANTOIN MONOHYDRATE AND MACROCR* 14 c* 0 04/10/2018 04/17/2018 Route: ORAL Sig: Take 1 capsule by mouth twice daily for 7 days. Disposition: Return for As scheduled. Follow-up and Disposition History Recorded Encounter Status:Closed by SHU COLLAZO on 04/08/18 PROGRESS Observed: 04/08/2018 Status: COMPLETED Source: [place] 1:53 PM [facility] REPOSITORY HNO ID: [id number] Author: Shu Collazo Service: (none) Author Type: News Agent Type: Progress Notes Filed: 04/08/2018 4:20 PM Note Text: Customs Patrol Officer offered: Patient declines. [place] Watkins is a 22 year old female who presents for problem visit for vaginal discharge and itching. HPI: Vaginal discharge, greenish in color, no odor. Has itching and burning with slight cramping. Treated Monistat on 01/28/18, Diflucan on 03/31/18, and does not have any improvement. PAST MEDICAL HISTORY Diagnosis Date - Chronic seasonal allergic rhinitis 10/18/2017 - Constipation - Interstitial cystitis PAST SURGICAL HISTORY Procedure Laterality Date - COLONOSCOP W/ OR W/O BRSH SPEC 10/30/2017 Colonoscopy - DENTAL SURGERY HX 2005 - EGD W/O OR W/BRUSH/WASH 10/30/2017 EGD FAMILY HISTORY Problem Relation Age of Onset - Cervical Cancer Mother Pre-cancerous - None Father - Colitis [OTHER] Maternal Grandmother - Heart Maternal Grandfather - Diabetes Maternal Uncle - Asthma Brother Social History Marital status: Single Spouse name: Years of education: 12 Number of children: 0 Occupational History 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 [id number] ( FORMULA-DHA) 28 mg- 800 mcg- 200 mg cap Take 1 capsule by mouth once daily. No current facility-administered medications for this visit. Allergies As of Date: 04/08/2018 Allergen Noted Reaction SEASONAL ALLERGIES 04/28/2009 Fully Assessed 03/27/2018 REVIEW OF SYSTEMS Abdomen: No bloating, early satiety, indigestion, or increased flatulence. No abdominal pain, nausea, vomiting, diarrhea, or constipation. Bladder: No dysuria, gross hematuria, urinary frequency, urinary urgency, or incontinence. Breast: No breast lumps, nipple d/c, overlying skin changes, redness or skin retraction. Expanded ROS: N/A Allergies and current medication updated:Yes EXAM: BP 116/66 Wt 153 lb (69.4kg) LMP 11/29/2017 GENERAL: pleasant, female in no apparent distress HEENT: Normocephalic and atraumatic NECK: Supple and full range of motion PELVIC: external genitalia normal, normal Bartholin's glands, urethra, [place]'s glands, no vulvar lesions, no cervical lesions, good vaginal support, physiologic discharge present, normal appearing perineal body and perianal region. Cervix friable. NEURO: alert and oriented x3,exam grossly non-focal EXTREMITIES: normal FHT 160 Urine dip shows: Glucose, Urine (mg/dL) Date Value 04/08/2018 Neg Bilirubin, Urine (no units) Date Value 04/08/2018 Neg Bilirubin, Urine (no units) Date Value 04/08/2018 Neg Ketones, Urine (no units) Date Value 04/08/2018 Neg Specific Graham, Ur (no units) Date Value 04/08/2018 1.015 Hemoglobin/Blood,Ur (no units) Date Value 04/08/2018 Neg No results found for: PH Protein, Urine (mg/dL) Date Value 04/08/2018 Neg Urobilinogen, Urine (EU) Date Value 04/08/2018 Normal No components found for: NITR Leukocytes (no units) Date Value 04/08/2018 Moderate Color/Appearance (comment:) Date Value 04/08/2018 yellow/clear ASSESSMENT AND PLAN: 1. Dysuria - ICD9: 788.1, ICD10: R30.0 (primary diagnosis) - Send urine for culture - Patient education for prevention given - UA DIP B/O - URINE CULTURE 2. Vaginal discharge during in second trimester - ICD9: 646.83, 623.5, ICD10: O26.892, N89.8 - GC/CHLAMYDIA DNA DET - TRICHOMONAS PREP - BACT/WADE VAG GRAM STAIN Shu Collazo APRN.CNM Observed: 04/08/2018 Status: F Source: [place] BACT/CAND VAG [facility] 12:50 AM [facility] REPOSITORY Sp. Request/Comment: - Swab Smear Result - BACTERIAL VAGINOSIS RESULT: Stain results consistent with normal vaginal best. Many --> ABNORMAL ALERT Yeast --> ABNORMAL ALERT Many Polymorphonuclear leukocytes Many Mononuclear cells Performed By: #### BVCNSM #### [place] [address] [place] [address] Observed: 04/08/2018 Status: F Source: [place] TRICHOMONAS PREP 12:49 AM [facility] REPOSITORY Sp. Request/Comment: - Swab Smear Result - Negative for Trichomonas vaginalis antigen This test was developed and its performance characteristics determined by [facility]'s [facility]ology [facility] [place] ([facility]). It has not been cleared or approved by the FDA. [facility] is regulated under CLIA as qualified to perform high-complexity testing. This test is used for clinical purposes. It should not be regarded as investigational or for research. Performed By: #### TRICHO #### [place] [address] TYPE AND SCR,PRENATL Collected: 03/27/2018 Status: F Source: [place] 4:26 PM [facility] REPOSITORY TYPE CODE TESTS RESULT OUT OF REFERENCE UNITS RANGE LAB %ABR A ABO/RH(D) POSITIVE LAB % Antibody NEG Screen Performed By: #### TSPN #### [place] [address] CBC Collected: 03/27/2018 Status: F Source: [place] 4:25 PM [facility] REPOSITORY TYPE CODE TESTS RESULT OUT OF REFERENCE UNITS RANGE LAB WBC 3.70-11.00 k/uL WBC High 12.55 LAB RBC 3.90-5.20 m/uL Low RBC 3.64 LAB HGB 11.5-15.5 g/dL Low Hemoglobin 11.0 LAB HCT 36.0-46.0 % Low Hematocrit 32.4 LAB MCV 80.0-100.0 fL MCV 89.0 LAB MCH 26.0-34.0 pG MCH 30.2 LAB MCHC 30.5-36.0 g/dL MCHC 34.0 LAB RDWCV 11.5-15.0 % RDW-CV 13.3 LAB PLTCT 150-400 k/uL Platelet Count 255 LAB MPV 9.0-12.7 fL MPV 9.0 LAB ABSNUC <0.01 k/uL Absolute nRBC <0.01 Performed By: #### CBC, SYPHGX, HBSAG, RUBIGG, HIV12C #### [place] [phone] SYPHILIS IGG WITH Collected: 03/27/2018 Status: F Source: [facility] 4:25 PM [facility] REPOSITORY TYPE CODE TESTS RESULT OUT OF REFERENCE UNITS RANGE LAB SYPHQL Nonreactive Syphilis IgG, Nonreactive Qual Result Comment: In conjunction with this result, the immune status of the patient should be evaluated based on their clinical status, related risk factors, and other diagnostic test results. LAB SYPHLG AI Syphilis IgG <0.2 Result Comment: Antibody index is interpreted as follows: Non reactive SPECIMENS <=0.8 Weak reactive SPECIMENS 0.9 to 5.9 Reactive SPECIMENS >=6.0 Performed By: #### CBC, SYPHGX, HBSAG, RUBIGG, HIV12C #### [place] [phone] HEPATITIS B SURF. AG Collected: 03/27/2018 Status: F Source: [place] 4:[address] [place] [address] REPOSITORY TYPE CODE TESTS RESULT OUT OF REFERENCE UNITS RANGE LAB HBSAG Negative Hepatitis B Negative Surf. Ag Performed By: #### CBC, SYPHGX, HBSAG, RUBIGG, HIV12C #### [place] [phone] RUBELLA IGG ANTIBODY Collected: 03/27/2018 Status: F Source: [place] [address] [place] [address] REPOSITORY TYPE CODE TESTS RESULT OUT OF RANGE REFERENCE UNITS LAB RUBGQL Negative Abnormal Rubella IgG Positive Alert Ab, Qual Result Comment: Sample is considered positive for IgG antibodies to rubella virus. A positive result indicates previous exposure to Rubella virus or vaccination. LAB RUBQNT Index Value Rubella IgG Ab 1.24 Result Comment: Index values are interpreted as follows: Negative specimens <0.90 Equivocol specimens 0.90 to 0.99 Positive specimens >0.99 The magnitude of the measured result is not indicative of the amount of antibody present. Performed By: #### CBC, SYPHGX, HBSAG, RUBIGG, HIV12C #### [facility] [address] [place], [place] [address] HIV 12 COMBO (AG/AB) Collected: 03/27/2018 Status: F Source: [place] 4:25 PM [facility] REPOSITORY TYPE CODE TESTS RESULT OUT OF REFERENCE UNITS RANGE LAB HVAGAB Non Reactive HIV Non Reactive 12 Ag/Ab Result Comment: (NOTE) HIV Information: [place] Rev. Code 3701.243(E): This information has been disclosed to you from confidential records protected from disclosure by state law. You shall make no further disclosure of this information without the specific, written, and informed release of the individual to whom it pertains, or as otherwise permitted by state law. A general authorization for the release of medical or other information is not sufficient for the purpose of the release of HIV test results or diagnoses. Performed By: #### CBC, SYPHGX, HBSAG, RUBIGG, HIV12C #### [place] [id number] [place] [address] Observed: 03/27/2018 Status: F Source: [place] BACT/CAND VAG [facility] 4:00 PM [facility] REPOSITORY Sp. Request/Comment: - Swab Smear Result - BACTERIAL VAGINOSIS RESULT: Stain results consistent with normal vaginal best. Many --> ABNORMAL ALERT Yeast --> ABNORMAL ALERT Many Polymorphonuclear leukocytes Performed By: #### BVCNSM #### [place] [id number] [place] [id number] PROGRESS Observed: 03/17/2018 Status: COMPLETED Source: [place] 11:02 AM [facility] REPOSITORY HNO ID: [id number] Author: Jelani Laguerre) [place] Service: (none) Author Type: Nurse Practitioner Type: Progress Notes Filed: 03/17/2018 11:35 AM Note Text: Chief Complaint Patient presents with: possible concussion: no headache - sharp shooting pain on left side , getting less - eyes seem blurry - worse with contacts HPI [place] Watkins is a 22 year old female who presents here today for Above Complaints. Patient presents to the office for head contusion follow up. Patient states that she experienced head trauma on 03/11/2018 as she hit her head on a metal block while at work. States that she did have some blurry vision after the event. She did go to [facility] and was diagnosed with a head contusion. She did call in Saturday for complaints of headache, tiredness, and blurry vision. She was advised to go to ER by Dr. Millan, but did not go. Currently she is 15 weeks . She has no complaints of a headache. Does have a complaint of a sharp shooting pain on the left side of her head, but states that it improving over the past few days and is only slightly there. Does have complaints of feeling like her vision is blurry. Does states that she has had this sensation prior to the incident, as she has been under the care of an opthamaologist and recently had her eye prescription change. Does wake up in the morning with neck discomfort but it will resolve on own. States that she has a sensitivity to sun light. No episodes of syncope. No chest pain, shortness of breath, leg swelling or fever/chills. Does state that she has used one tylenol for her symptoms. Snellen: OD 20/30, OS 20/30, OU 20/25 SCAT2 Sport Concussion Assessment Tool 2 How do you feel (right now)? none/0 mild/1-2 moderate/3-4 severe/5-6 Headache 0 Pressure in head 0 Neck Pain 0 Nausea or vomitting 0 Dizziness 0 Blurred Vision 1 Balance Problems 0 Sensitivity to light 1 Sensitivity to Noise 0 Feeling slowed down 0 Feeling like in a fog 0 Don't feel right 1 Difficulty concentrating 0 Difficulty remembering 0 Fatigue or low energy 0 Confusion 0 Drowsiness 0 Trouble falling asleep (if applicable) 0 More emotional 0 Irritability 0 Sadness 0 Nervous or Anxious 0 Total Number of Symptoms (max=22) Symptom severity score (add all together. Wdc=819) Do the sympyoms get worse with physical activity? Yes, pressure increases when scrubbing the floor, but states that it improved yesterday Do the symptoms get worse with mental activity? No If you know the athlete well, how different is behavior? n/a SYMPTOM SCORE: 22 minus the number of symptoms Past medical history, appointments, medications, allergies reviewed. Previous Medical History PAST MEDICAL HISTORY Diagnosis Date - Chronic seasonal allergic rhinitis 10/18/2017 - Constipation - Interstitial cystitis Previous Surgical History PAST SURGICAL HISTORY Procedure Laterality Date - COLONOSCOP W/ OR W/O BRSH SPEC 10/30/2017 Colonoscopy - DENTAL SURGERY HX 2005 - EGD W/O OR W/BRUSH/WASH 10/30/2017 EGD Family History FAMILY HISTORY Problem Relation Age of Onset - Cervical Cancer Mother Pre-cancerous - None Father - Colitis [OTHER] Maternal Grandmother - Heart Maternal Grandfather - Diabetes Maternal Uncle - Asthma Brother Patient Allergies ALLERGIES Allergen Reactions - Seasonal Allergies Current Medications Current Outpatient Prescriptions on File Prior to Visit: famotidine (PEPCID AC) 10 mg tablet Take 1 tablet by mouth twice daily. [id number] ( FORMULA-DHA) 28 mg- 800 mcg- 200 mg cap Take 1 capsule by mouth once daily. No current facility-administered medications on file prior to visit. 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 Reviewed relevant PMHx, PSHx, Social Hx, current medications and allergies. EXAM: BP 120/68 Pulse 92 Temp 36.8 ?C (98.2 ?F) (Tympanic) Resp 20 Wt 68 kg (150 lb) LMP 11/29/2017 (Approximate) BMI 25.14 kg/m2 General Appearance: Well appearing, alert, in no acute distress, well-hydrated, well nourished. Skin: Scalp is mildly tender on the left side. Head: Normocephalic, no masses, lesions, tenderness or abnormalities. Eyes: Anicteric sclera. Pupils are equally round and reactive to light. Extraocular movements are intact. Ears: External ears normal, canals clear. Nose/Sinuses: Nares normal, septum midline, mucosa normal, no drainage or sinus tenderness. Oropharynx: Lips, mucosa, and tongue normal, teeth and gums normal, oropharynx normal. Neck: Supple, no adenopathy; thyroid symmetric, normal size. Lungs: Lungs clear to auscultation. No wheezing, rhonchi, rales. Heart: RRR without murmur, gallop, or rubs. No ectopy. Abdomen: Normal abdominal exam, Abdomen soft, non-tender. Bowel sounds normal. No masses, organomegaly. Extremities: No deformities, edema. Musculoskeletal: No joint swelling, deformity, or tenderness, 5/5 strength of the upper and lower extremities. Neurologic: Gait normal. +2/4 patellar reflexes normal and symmetric. Sensation grossly intact; negative romberg, heel to larson is normal, finger to nose to finger is normal. Tongue is midline, smile is symmetrical. Health Maintenance List INFLUENZA(Season Ended) due on 07/26/2018 GC (GONORRHEA) SCREENING (18-24) due on 01/28/2019 CHLAMYDIA SCREENING (18-24) due on 01/28/2019 TETANUS due on 06/01/2020 HPV VACCINE Completed Data reviewed No imaging or labs are pertinent to this encounter. ASSESSMENT/PLAN: 1. Contusion of scalp, initial encounter - ICD9: 920, ICD10: S00.03XA (primary diagnosis) - Stable. Tylenol, ice for pain. 2. Post concussion syndrome - ICD9: 310.2, ICD10: F07.81 - Probable concussion given symptoms after injury - These symptoms are slowly improving on a daily basis. - Advised tylenol, adequate hydration, sleep. - Advised close follow up if symptoms worsen. Follow up as needed. Patient does have a routine exam with Dr. Millan on 04/10/2018. We will follow her status at this time. Jelani Delgado APRN.SUPERVISOR CR[employer] OFF CNOV Observed: 03/17/2018 Status: COMPLETED Source: [place] 11:00 AM [facility] REPOSITORY Office Visit (FAMPWS) [place] WATKINS ([id number]) 1995 F Date Time Provider Department 03/17/18 11:00 AM JELANI DELGADO (NATALIA) TERESITA During your visit today, we recorded the following information about you: Temperature Pulse Respiration Blood pressure 98.2 degrees 92/minute 20/minute 120/68 Weight 68 kg Jelani Delgado APRN.CNP 03/17/2018 11:35 AM Signed Chief Complaint Patient presents with: possible concussion: no headache - sharp shooting pain on left side , getting less - eyes seem blurry - worse with contacts HPI [place] Watkins is a 22 year old female who presents here today for Above Complaints. Patient presents to the office for head contusion follow up. Patient states that she experienced head trauma on 03/11/2018 as she hit her head on a metal block while at work. States that she did have some blurry vision after the event. She did go to [facility] and was diagnosed with a head contusion. She did call in Saturday for complaints of headache, tiredness, and blurry vision. She was advised to go to ER by Dr. Millan, but did not go. Currently she is 15 weeks . She has no complaints of a headache. Does have a complaint of a sharp shooting pain on the left side of her head, but states that it improving over the past few days and is only slightly there. Does have complaints of feeling like her vision is blurry. Does states that she has had this sensation prior to the incident, as she has been under the care of an opthamaologist and recently had her eye prescription change. Does wake up in the morning with neck discomfort but it will resolve on own. States that she has a sensitivity to sun light. No episodes of syncope. No chest pain, shortness of breath, leg swelling or fever/chills. Does state that she has used one tylenol for her symptoms. Snellen: OD 20/30, OS 20/30, OU 20/25 SCAT2 Sport Concussion Assessment Tool 2 How do you feel (right now)? none/0 mild/1-2 moderate/3-4 severe/5-6 Headache 0 ANDquot;Pressure in headANDquot; 0 Neck Pain 0 Nausea or vomitting 0 Dizziness 0 Blurred Vision 1 Balance Problems 0 Sensitivity to light 1 Sensitivity to Noise 0 Feeling slowed down 0 Feeling like ANDquot;in a fogANDquot; 0 ANDquot;Don't feel rightANDquot; 1 Difficulty concentrating 0 Difficulty remembering 0 Fatigue or low energy 0 Confusion 0 Drowsiness 0 Trouble falling asleep (if applicable) 0 More emotional 0 Irritability 0 Sadness 0 Nervous or Anxious 0 Total Number of Symptoms (max=22) Symptom severity score (add all together. Wtg=491) Do the sympyoms get worse with physical activity? Yes, pressure increases when scrubbing the floor, but states that it improved yesterday Do the symptoms get worse with mental activity? No If you know the athlete well, how different is behavior? n/a SYMPTOM SCORE: 22 minus the number of symptoms Past medical history, appointments, medications, allergies reviewed. Previous Medical History PAST MEDICAL HISTORY Diagnosis Date - Chronic seasonal allergic rhinitis 10/18/2017 - Constipation - Interstitial cystitis Previous Surgical History PAST SURGICAL HISTORY Procedure Laterality Date - COLONOSCOP W/ OR W/O BRSH SPEC 10/30/2017 Colonoscopy - DENTAL SURGERY HX 2004 - EGD W/O OR W/BRUSH/WASH 10/30/2017 EGD Family History FAMILY HISTORY Problem Relation Age of Onset - Cervical Cancer Mother Pre-cancerous - None Father - Colitis [OTHER] Maternal Grandmother - Heart Maternal Grandfather - Diabetes Maternal Uncle - Asthma Brother Patient Allergies ALLERGIES Allergen Reactions - Seasonal Allergies Current Medications Current Outpatient Prescriptions on File Prior to Visit: famotidine (PEPCID AC) 10 mg tablet Take 1 tablet by mouth twice daily. [id number] ( FORMULA-DHA) 28 mg- 800 mcg- 200 mg cap Take 1 capsule by mouth once daily. No current facility-administered medications on file prior to visit. Social History Social History Marital status: Single Spouse name: Years of education: 12 Number of children: 0 Occupational History Occupation Employer Comment [employer] Social History Main Topics Smoking status: Former Smoker Packs/day: 0.00 Years: 0.50 Quit date: 2013 Smokeless status: Never Used Comment: step dad outside Alcohol use: No Drug use: No Sexual activity: Yes Partners with: Male control/protection: None Other Topics Concern Service No Sleep Concern No Special Diet No Exercise No Seat Belt Yes Social History Narrative Lives with mom, step father, brother and fiance 1 dog REVIEW OF SYSTEMS: as above ? Reviewed relevant PMHx, PSHx, Social Hx, current medications and allergies. EXAM: BP 120/68 Pulse 92 Temp 36.8 ?C (98.2 ?F) (Tympanic) Resp 20 Wt 68 kg (150 lb) LMP 11/29/2017 (Approximate) BMI 25.14 kg/m2 General Appearance: Well appearing, alert, in no acute distress, well-hydrated, well nourished. Skin: Scalp is mildly tender on the left side. Head: Normocephalic, no masses, lesions, tenderness or abnormalities. Eyes: Anicteric sclera. Pupils are equally round and reactive to light. Extraocular movements are intact. Ears: External ears normal, canals clear. Nose/Sinuses: Nares normal, septum midline, mucosa normal, no drainage or sinus tenderness. Oropharynx: Lips, mucosa, and tongue normal, teeth and gums normal, oropharynx normal. Neck: Supple, no adenopathy; thyroid symmetric, normal size. Lungs: Lungs clear to auscultation. No wheezing, rhonchi, rales. Heart: RRR without murmur, gallop, or rubs. No ectopy. Abdomen: Normal abdominal exam, Abdomen soft, non-tender. Bowel sounds normal. No masses, organomegaly. Extremities: No deformities, edema. Musculoskeletal: No joint swelling, deformity, or tenderness, 5/5 strength of the upper and lower extremities. Neurologic: Gait normal. +2/4 patellar reflexes normal and symmetric. Sensation grossly intact; negative romberg, heel to larson is normal, finger to nose to finger is normal. Tongue is midline, smile is symmetrical. Health Maintenance List INFLUENZA(Season Ended) due on 07/26/2018 GC (GONORRHEA) SCREENING (18-24) due on 01/28/2019 CHLAMYDIA SCREENING (18-24) due on 01/28/2019 TETANUS due on 06/01/2020 HPV VACCINE Completed Data reviewed No imaging or labs are pertinent to this encounter. ASSESSMENT/PLAN: 1. Contusion of scalp, initial encounter - ICD9: 920, ICD10: S00.03XA (primary diagnosis) - Stable. Tylenol, ice for pain. 2. Post concussion syndrome - ICD9: 310.2, ICD10: F07.81 - Probable concussion given symptoms after injury - These symptoms are slowly improving on a daily basis. - Advised tylenol, adequate hydration, sleep. - Advised close follow up if symptoms worsen. Follow up as needed. Patient does have a routine exam with Dr. Millan on 04/10/2018. We will follow her status at this time. Jelani Delgado APRN.NATALIA Zamora Cma 03/17/2018 11:28 AM Signed Eye exam was done while patient was in the office OS 20/30 OD 20/30 OU 20/25 Referring Provider: SELF [[id number]] Allergies As of Date: 03/17/2018 Noted Allergy Reaction SEASONAL ALLERGIES 04/28/2009 Date Reviewed: 03/17/2018 Reviewed by: Sima Zamora Cma - Fully Assessed Reason for Visit: possible concussion [Other] Cmt: no headache - sharp shooting pain on left side , getting less - eyes seem blurry - worse with contacts Primary Visit Diagnosis:Contusion of scalp, initial encounter [S00.03XA] Other Visit Diagnosis:Post concussion syndrome [F07.81] Prescriptions as of 03/17/2018 Sig: FAMOTIDINE 10 MG TABLET Take 1 tablet by mouth twice * VIT NO.116-IRON 28 M* Take 1 capsule by mouth once * Problem List As Of Date 03/17/2018 Noted Resolved Nondisplaced fracture of triquetral bone of rig*INVALID FOR*10/30/2013 Dysmenorrhea in the adolescent [N94.6] INVALID FOR*01/28/2018 Constipation [K59.00] INVALID FOR* More... Chronic seasonal allergic rhinitis [J30.2] INVALID FOR* Spotting in early [O26.859] INVALID FOR*01/28/2018 More... Family history of congenital heart defect [Z82.*INVALID FOR* More... History of hematuria [Z87.448] INVALID FOR* More... Patient requested diagnostic testing [Z01.89] INVALID FOR*01/28/2018 More... Visit Notes: >> Sima Zamora Cma Mon Mar 17, 2018 11:27 AM Status: Signed Eye exam was done while patient was in the office OS 20/30 OD 20/30 OU 20/25 Disposition: Return if symptoms worsen or fail to improve. Follow-up and Disposition History Recorded Encounter Status:Closed by JELANI DELGADO CNP on 03/17/18 PROGRESS Observed: 02/27/2018 Status: COMPLETED Source: [place] 3:20 PM [facility] REPOSITORY HNO ID: [id number] Author: Kalyani Brown Service: (none) Author Type: Nurse Practitioner Type: Progress Notes Filed: 02/27/2018 4:07 PM Note Text: 02/27/2018 Patient presents with: Chest Congestion: sob x 4 days , chest discomfort has not been on prilosec for a while (13 WKS PREG) SUBJECTIVE: This is a 22 year old that is here today with grandmother for nasal congestion, cough- thick green occasionally, SOB- not extreme, but noticeable, and chest discomfort for the last 4 days. She states that she feels that it is related to her reflux because prior to , she was taking prilosec and stopped, but when she was diagnosed with GERD initially she had cough and SOB. She does admit to reflux a few times as well since stopping the prilosec. Denies fever or chills, body aches, rhinorrhea, hemoptysis, ear pain, NORRIS, facial tenderness, sore throat. Does not feel that she has a cold. She states that she has had an EKG in the past for palpitations, denies current palpitations. States that the chest discomfort is not really a pain, but it is a discomfort. Not worse with deep breaths or exertion. Comes and goes. PAST MEDICAL HISTORY Diagnosis Date - Chronic seasonal allergic rhinitis 10/18/2017 - Constipation - Interstitial cystitis ALLERGIES Seasonal Allergies MEDICATIONS Current Outpatient Prescriptions: [id number] ( FORMULA-DHA) 28 mg- 800 mcg- 200 mg cap Take 1 capsule by mouth once daily. No current facility-administered medications for this visit. Medications and allergies reviewed by this provider. 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 Vital signs reviewed by this provider. PHYSICAL EXAMINATION: General appearance: Well appearing, alert, in no acute distress, well-hydrated, well nourished. 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 Did not have any reaction to it prior to . Lungs: Lungs clear to auscultation. No wheezing, rhonchi, rales Heart: RRR without murmur, gallop, or rubs. No ectopy Abdomen: Abdomen soft, non-tender. Bowel sounds normal. Extremities: No deformities, edema, skin discoloration, clubbing or cyanosis. Good capillary refill. , Pulses: 2+ ASSESSMENT/PLAN: 1. Chest discomfort - ICD9: 786.59, ICD10: R07.89 (primary diagnosis) Atypical chest pain, symptoms are not consistent with cardiac ischemia due to nonexertional nature of symptom and accompanying GI symptoms possible etiology include GERD and Bronchitis - Electrocardiogram: An ECG today showed normal sinus rhythm at 77 BPM, CA interval 132 ms, normal QRS, normal ST-T, QT 380 ms - Treatment with trial of famodtidine (Pepcid) BID - Follow up 2 weeks if no improvement or sooner if symptoms worsen - ECG COMPLETE W INTERPRETATION 2. SOB (shortness of breath) - ICD9: 786.05, ICD10: R06.02 - may have the start of a viral illness vs GERD - ECG COMPLETE W INTERPRETATION 3. Nasal congestion - ICD9: 478.19, ICD10: R09.81 - encouraged nasal saline, humidifier, increased water intake 4. GERD with esophagitis - ICD9: 530.11, ICD10: K21.0 - Discussed lifestyle modifications including limiting caffeine, no meals three hours before sleep and head of bed elevation - Begin treatment with Pepcid 10 mg BID - FAMOTIDINE 10 MG TABLET [facility] Medicine Guidelines During packet given to patient Kalyani Brown APRN.NATALIA CODY Observed: 02/27/2018 Status: COMPLETED Source: [place] 3:00 PM [facility] RE[facility] Office Visit (FAMPWS) [place] WATKINS ([id number]) 1995 F Date Time Provider Department 02/27/18 3:00 PM KALYANI BROWN ([facility]) FAMPWS During your visit today, we recorded the following information about you: Temperature Pulse Respiration Blood pressure 98.5 degrees 78/minute 16/minute 114/70 Weight 66.2 kg Kalyani Brown APRN.NATALIA 02/27/2018 4:07 PM Signed 02/27/2018 Patient presents with: Chest Congestion: sob x 4 days , chest discomfort has not been on prilosec for a while (13 WKS PREG) SUBJECTIVE: This is a 22 year old that is here today with grandmother for nasal congestion, cough- thick green occasionally, SOB- ANDquot;not extreme, but noticeableANDquot;, and chest discomfort for the last 4 days. She states that she feels that it is related to her reflux because prior to , she was taking prilosec and stopped, but when she was diagnosed with GERD initially she had cough and SOB. She does admit to reflux a few times as well since stopping the prilosec. Denies fever or chills, body aches, rhinorrhea, hemoptysis, ear pain, NORRIS, facial tenderness, sore throat. Does not feel that she has a cold. She states that she has had an EKG in the past for palpitations, denies current palpitations. States that the chest discomfort is not really a pain, but it is a discomfort. Not worse with deep breaths or exertion. Comes and goes. PAST MEDICAL HISTORY Diagnosis Date - Chronic seasonal allergic rhinitis 10/18/2017 - Constipation - Interstitial cystitis ALLERGIES Seasonal Allergies MEDICATIONS Current Outpatient Prescriptions: [id number] ( FORMULA-DHA) 28 mg- 800 mcg- 200 mg cap Take 1 capsule by mouth once daily. No current facility-administered medications for this visit. Medications and allergies reviewed by this provider. 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 Vital signs reviewed by this provider. PHYSICAL EXAMINATION: General appearance: Well appearing, alert, in no acute distress, well-hydrated, well nourished. 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 Did not have any reaction to it prior to . Lungs: Lungs clear to auscultation. No wheezing, rhonchi, rales Heart: RRR without murmur, gallop, or rubs. No ectopy Abdomen: Abdomen soft, non-tender. Bowel sounds normal. Extremities: No deformities, edema, skin discoloration, clubbing or cyanosis. Good capillary refill. , Pulses: 2+ ASSESSMENT/PLAN: 1. Chest discomfort - ICD9: 786.59, ICD10: R07.89 (primary diagnosis) Atypical chest pain, symptoms are not consistent with cardiac ischemia due to nonexertional nature of symptom and accompanying GI symptoms possible etiology include GERD and Bronchitis - Electrocardiogram: An ECG today showed normal sinus rhythm at 77 BPM, CA interval 132 ms, normal QRS, normal ST-T, QT 380 ms - Treatment with trial of famodtidine (Pepcid) BID - Follow up 2 weeks if no improvement or sooner if symptoms worsen - ECG COMPLETE W INTERPRETATION 2. SOB (shortness of breath) - ICD9: 786.05, ICD10: R06.02 - may have the start of a viral illness vs GERD - ECG COMPLETE W INTERPRETATION 3. Nasal congestion - ICD9: 478.19, ICD10: R09.81 - encouraged nasal saline, humidifier, increased water intake 4. GERD with esophagitis - ICD9: 530.11, ICD10: K21.0 - Discussed lifestyle modifications including limiting caffeine, no meals three hours before sleep and head of bed elevation - Begin treatment with Pepcid 10 mg BID - FAMOTIDINE 10 MG TABLET [facility] Medicine Guidelines During packet given to patient Kalyanisean Brown APRN.NATALIA Brown APRN.NATALIA 02/27/2018 3:55 PM Addendum All Natural DIY Pineapple Cough Syrup Yield: about a cup What You Will Need ? 2 thick slices of fresh pineapple, peel removed, but core intact (about two good cups) ? 1 Tbsp honey ? 1/2 tsp cayenne pepper (omit or reduce for children) ? a thumb sized piece of chantel (omit or reduce for children), peeled and sliced or rough chopped ? juice of 1 lemon Instructions 1) Give the pineapple a rough chop, including the core, which is not only edible but particularly healthy 2) Blend everything up in a tracer powder blender or food technician until smooth. 3) Use as is, or push the mixture through a mesh strainer to get a smoother syrup. 4) Keep in the refrigerator and take as needed. Note: Do not give anything with honey to children under 1 year old. If you have a persistent cough, seek medical attention. Recipe slightly adapted from [email or web address] Encouraged humidifier, increased water intake, and nasal saline. Ok to use the medications on the print out given safe in if needed. Start Pepcid AC and follow up with NEWSPAPER DELIVERY DRIVER or PCP as needed Referring Provider: SELF [200] Allergies As of Date: 02/27/2018 Noted Allergy Reaction SEASONAL ALLERGIES 04/28/2009 Date Reviewed: 02/27/2018 Reviewed by: Aylin De La Torre) SILVIA Perez - Fully Assessed Reason for Visit: Chest Congestion [236] Cmt: sob x 4 days , chest discomfort has not been on prilosec for a while (13 WKS PREG) Primary Visit Diagnosis:Chest discomfort [R07.89] Other Visit Diagnoses:SOB (shortness of breath) [R06.02] Nasal congestion [R09.81] GERD with esophagitis [K21.0] Order(s):ECG COMPLETE W INTERPRETATION [ECG01] Order #: [id number] FUTURE famotidine (PEPCID AC) 10 mg tabletTake 1 tablet by mouth twice daily.Disp: 30 tabletRfl: 3 Prescriptions as of 02/27/2018 Sig: VIT NO.116-IRON 28 M* Take 1 capsule by mouth once * FAMOTIDINE 10 MG TABLET Take 1 tablet by mouth twice * Problem List As Of Date 02/27/2018 Noted Resolved Nondisplaced fracture of triquetral bone of rig*INVALID FOR*10/30/2013 Dysmenorrhea in the adolescent [N94.6] INVALID FOR*01/28/2018 Constipation [K59.00] INVALID FOR* More... Chronic seasonal allergic rhinitis [J30.2] INVALID FOR* Spotting in early [O26.859] INVALID FOR*01/28/2018 More... Family history of congenital heart defect [Z82.*INVALID FOR* More... History of hematuria [Z87.448] INVALID FOR* More... Patient requested diagnostic testing [Z01.89] INVALID FOR*01/28/2018 More... Other instructions from your clinician: All Natural DIY Pineapple Cough Syrup Yield: about a cup What You Will Need ? 2 thick slices of fresh pineapple, peel removed, but core intact (about two good cups) ? 1 Tbsp honey ? 1/2 tsp cayenne pepper (omit or reduce for children) ? a thumb sized piece of chantel (omit or reduce for children), peeled and sliced or rough chopped ? juice of 1 lemon Instructions 1) Give the pineapple a rough chop, including the core, which is not only edible but particularly healthy 2) Blend everything up in a tracer powder blender or food technician until smooth. 3) Use as is, or push the mixture through a mesh strainer to get a smoother syrup. 4) Keep in the refrigerator and take as needed. Note: Do not give anything with honey to children under 1 year old. If you have a persistent cough, seek medical attention. Recipe slightly adapted from [employer] Encouraged humidifier, increased water intake, and nasal saline. Ok to use the medications on the print out given safe in if needed. Start Pepcid AC and follow up with NEWSPAPER DELIVERY DRIVER or PCP as needed Prescriptions ordered this encounter Disp Refills Start End FAMOTIDINE 10 MG TABLET 30 t* 3 02/27/2018 Route: ORAL Sig: Take 1 tablet by mouth twice daily. Encounter Status:Closed by KALYANI BROWN on 02/27/18 Observed: 02/06/2018 Status: F Source: [place] BACT/CAND VAG GRM ST 5:20 PM [facility] [place] REPOSITORY Sp. Request/Comment: - Swab Smear Result - BACTERIAL VAGINOSIS RESULT: Stain results consistent with normal vaginal best. Many --> ABNORMAL ALERT Yeast --> ABNORMAL ALERT Few Polymorphonuclear leukocytes Performed By: #### BVCNSM #### [facility] [address] [place], [place] [address] PROGRESS Observed: 02/05/2018 Status: COMPLETED Source: [place] 3:25 PM [facility] REPOSITORY HNO ID: [id number] Author: Shu Collazo Service: (none) Author Type: News Agent Type: Progress Notes Filed: 02/05/2018 4:45 PM Note Text: Customs Patrol Officer offered: Patient declines. Florida Watkins is a 22 year old female who presents for problem visit for vaginal discharge. HPI: Was seen on 01/28/18 for vaginal discharge. Treated on 01/31/18 with OTC monistat. Used Monistat 7 and after 3 days itching intensified and stopped medication. After stopping itching improved but back now. Yellow discharge, no odor and wants checked. PAST MEDICAL HISTORY Diagnosis Date - Chronic seasonal allergic rhinitis 10/18/2017 - Constipation - Interstitial cystitis PAST SURGICAL HISTORY Procedure Laterality Date - COLONOSCOP W/ OR W/O BRSH SPEC 10/30/2017 Colonoscopy - DENTAL SURGERY HX 2004 - EGD W/O OR W/BRUSH/WASH 10/30/2017 EGD FAMILY HISTORY Problem Relation Age of Onset - Cervical Cancer Mother Pre-cancerous - None Father - Colitis [OTHER] Maternal Grandmother - Heart Maternal Grandfather - Diabetes Maternal Uncle - Asthma Brother Social History Marital status: Single Spouse name: Years of education: 12 Number of children: 0 Occupational History 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 No current facility-administered medications for this visit. Allergies As of Date: 02/05/2018 Allergen Noted Reaction SEASONAL ALLERGIES 04/28/2009 Fully Assessed 02/05/2018 REVIEW OF SYSTEMS Abdomen: No bloating, early satiety, indigestion, or increased flatulence. No abdominal pain, nausea, vomiting, diarrhea, or constipation. Bladder: No dysuria, gross hematuria, urinary frequency, urinary urgency, or incontinence. Breast: No breast lumps, nipple d/c, overlying skin changes, redness or skin retraction. Expanded ROS: N/A Allergies and current medication updated:Yes EXAM: BP 120/60 Wt 145 lb (65.8kg) LMP 11/29/2017 GENERAL: pleasant, female in no apparent distress HEENT: Normocephalic and atraumatic NECK: Supple and full range of motion PELVIC: external genitalia normal, normal Bartholin's glands, urethra, [place]'s glands, no vulvar lesions, no cervical lesions, good vaginal support, normal appearing perineal body and perianal region NEURO: alert and oriented x3,exam grossly non-focal ASSESSMENT AND PLAN: 1. 9 weeks gestation of - ICD9: V22.2, ICD10: Z3A.09 (primary diagnosis) 2. Dysuria - ICD9: 788.1, ICD10: R30.0 - UA DIP B/O 3. Vaginal discharge - ICD9: 623.5, ICD10: N89.8 - BACT/WADE VAG GRAM STAIN STORMY Elizabeth Observed: 02/05/2018 Status: COMPLETED Source: [place] 3:15 PM [facility] REPOSITORY Office Visit (WOOB) FLORIDA WATKINS ([id number]) 1995 F Date Time Provider Department 02/05/18 3:15 PM SHU COLLAZO) MAYRA During your visit today, we recorded the following information about you: Blood pressure Weight 120/60 65.8 kg Shanta Braxton Silvia 02/05/2018 3:21 PM Addendum Cruz probiotic SEQUENTIAL SCREENINGS The [facility] offers sequential screenings for women who are interested in screenings for chromosomal abnormalities and certain defects during a . The sequential screen combines ultrasound and blood tests to determine the risk of chromosomal abnormalities, including Down's Syndrome (Trisomy 21) and Trisomy 18, as well as open neural tube defects including spina bifida. Ultrasound examination is performed between 11 weeks and 13 weeks gestational age. Blood tests are drawn after the ultrasound and again later in the between 15 and 21 weeks gestational age. Please let your physician know if you are interested in this testing. It will require an appointment with our armored service technician. This is not an ultrasound performed by a physician in our office during a routine visit. SIGNS AND SYMPTOMS OF LABOR 1. Contractions every 10 minutes or more often 2. Clear, pink, or brownish fluid (water) leaking from vagina 3. Feeling that baby is pushing down, pressure 4. Low, dull backache 5. Cramps that feel like a period 6. Cramps with or without diarrhea If you notice any of the above symptoms, contact our office at [phone] and ask to speak with a nurse. After hours, you can call doctors registry at [phone] OR call [facility] at [phone] and ask to have the doctor automation test developer paged. If you consider this an emergency, dial 9-0 or go to your nearest emergency department. NEED HELP? Are you dealing with a violent or abusive relationship? Are you a victim of rape or sexual assult? Call [facility] ([place]) 24 hour Crisis Hotline: 987.180.3856 or 899-066-3635. MANUAL Your Guide to a Healthy manual is now on-line. Visit [email or web address] to download your free copy Shu Collazo CNM 02/05/2018 4:45 PM Signed Customs Patrol Officer offered: Patient declines. [place] Watknis is a 22 year old female who presents for problem visit for vaginal discharge. HPI: Was seen on 01/28/18 for vaginal discharge. Treated on 01/31/18 with OTC monistat. Used Monistat 7 and after 3 days itching intensified and stopped medication. After stopping itching improved but back now. Yellow discharge, no odor and wants checked. PAST MEDICAL HISTORY Diagnosis Date - Chronic seasonal allergic rhinitis 10/18/2017 - Constipation - Interstitial cystitis PAST SURGICAL HISTORY Procedure Laterality Date - COLONOSCOP W/ OR W/O BRSH SPEC 10/30/2017 Colonoscopy - DENTAL SURGERY HX 2004 - EGD W/O OR W/BRUSH/WASH 10/30/2017 EGD FAMILY HISTORY Problem Relation Age of Onset - Cervical Cancer Mother Pre-cancerous - None Father - Colitis [OTHER] Maternal Grandmother - Heart Maternal Grandfather - Diabetes Maternal Uncle - Asthma Brother Social History Marital status: Single Spouse name: Years of education: 12 Number of children: 0 Occupational History 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 No current facility-administered medications for this visit. Allergies As of Date: 02/05/2018 Allergen Noted Reaction SEASONAL ALLERGIES 04/28/2009 Fully Assessed 02/05/2018 REVIEW OF SYSTEMS Abdomen: No bloating, early satiety, indigestion, or increased flatulence. No abdominal pain, nausea, vomiting, diarrhea, or constipation. Bladder: No dysuria, gross hematuria, urinary frequency, urinary urgency, or incontinence. Breast: No breast lumps, nipple d/c, overlying skin changes, redness or skin retraction. Expanded ROS: N/A Allergies and current medication updated:Yes EXAM: BP 120/60 Wt 145 lb (65.8kg) LMP 11/29/2017 GENERAL: pleasant, female in no apparent distress HEENT: Normocephalic and atraumatic NECK: Supple and full range of motion PELVIC: external genitalia normal, normal Bartholin's glands, urethra, [place]'s glands, no vulvar lesions, no cervical lesions, good vaginal support, normal appearing perineal body and perianal region NEURO: alert and oriented x3,exam grossly non-focal ASSESSMENT AND PLAN: 1. 9 weeks gestation of - ICD9: V22.2, ICD10: Z3A.09 (primary diagnosis) 2. Dysuria - ICD9: 788.1, ICD10: R30.0 - UA DIP B/O 3. Vaginal discharge - ICD9: 623.5, ICD10: N89.8 - BACT/WADE VAG GRAM STAIN Shu Collazo CNM Referring Provider: SELF [200] Allergies As of Date: 02/05/2018 Noted Allergy Reaction SEASONAL ALLERGIES 04/28/2009 Date Reviewed: 02/05/2018 Reviewed by: Shanta Braxton Ma - Fully Assessed Reason for Visit: Care [86] Primary Visit Diagnosis:9 weeks gestation of [Z3A.09] Other Visit Diagnoses:Dysuria [R30.0] Vaginal discharge [N89.8] Order(s):URINE OB DIP B/O [6238438] Order #: [id number] UA DIP B/O [[id number]] Order #: [id number] vit 04-pgcx-dkvlr-dha (PRENATE MINI, FERR ASP GLYCIN,) 18-1-350 mg capTake 1 tablet by mouth once daily.Disp: 30 tabletRfl: 11 BACT/WADE VAG GRAM STAIN [SQBVCNSM] Order #: [id number] FUTURE Prescriptions as of 02/05/2018 Sig: VIT 87-IRON CARB,ASP* Take 1 tablet by mouth once d* Problem List As Of Date 02/05/2018 Noted Resolved Nondisplaced fracture of triquetral bone of rig*INVALID FOR*10/30/2013 Dysmenorrhea in the adolescent [N94.6] INVALID FOR*01/28/2018 Constipation [K59.00] INVALID FOR* More... Chronic seasonal allergic rhinitis [J30.2] INVALID FOR* Spotting in early [O26.859] INVALID FOR*01/28/2018 More... Family history of congenital heart defect [Z82.*INVALID FOR* More... History of hematuria [Z87.448] INVALID FOR* More... Patient requested diagnostic testing [Z01.89] INVALID FOR*01/28/2018 More... Other instructions from your clinician: Cruz lakhani SEQUENTIAL SCREENINGS The [facility] offers sequential screenings for women who are interested in screenings for chromosomal abnormalities and certain defects during a . The sequential screen combines ultrasound and blood tests to determine the risk of chromosomal abnormalities, including Down's Syndrome (Trisomy 21) and Trisomy 18, as well as open neural tube defects including spina bifida. Ultrasound examination is performed between 11 weeks and 13 weeks gestational age. Blood tests are drawn after the ultrasound and again later in the between 15 and 21 weeks gestational age. Please let your physician know if you are interested in this testing. It will require an appointment with our armored service technician. This is not an ultrasound performed by a physician in our office during a routine visit. SIGNS AND SYMPTOMS OF LABOR 1. Contractions every 10 minutes or more often 2. Clear, pink, or brownish fluid (water) leaking from vagina 3. Feeling that baby is pushing down, pressure 4. Low, dull backache 5. Cramps that feel like a period 6. Cramps with or without diarrhea If you notice any of the above symptoms, contact our office at [phone] and ask to speak with a nurse. After hours, you can call doctors registry at [phone] OR call [facility] at [phone] and ask to have the doctor automation test developer paged. If you consider this an emergency, dial 9-1-1 or go to your nearest emergency department. NEED HELP? Are you dealing with a violent or abusive relationship? Are you a victim of rape or sexual assult? Call [facility] ([facility] 24 hour Crisis Hotline: 578.715.5965 or 241-101-9504. MANUAL Your Guide to a Healthy manual is now on-line. Visit [email or web address] to download your free copy Prescriptions ordered this encounter Disp Refills Start End VIT 87-IRON CARB,ASP 18 MG-* 30 t* 11 02/05/2018 Route: ORAL Sig: Take 1 tablet by mouth once daily. Medications Discontinued During This Encounter Fzfrxbla-Pg-Rex-Fe-FA (PREN* 02/05/2018 Class: Historical Med Route: ORAL Sig: Take 1 tablet by mouth. Disc: Changing Therapy/Dosage Form Disposition: Return for as scheduled. Follow-up and Disposition History Recorded Encounter Status:Closed by SHU COLLAZO on 02/05/18 TOXICOLOGY SCREEN,UR Collected: 01/28/2018 Status: F Source: [place] 3:00 PM [facility] REPOSITORY TYPE CODE TESTS RESULT OUT OF REFERENCE UNITS RANGE LAB UPCP2 Negative Negative Phencyclidin e, Urine Result Comment: Cutoff threshold at 25 ng/mL. LAB UBENZ2 Negative Benzodiazepines, Ur Negative Result Comment: Cutoff threshold at 200 ng/mL. LAB UCOC2 Negative Cocaine, Negative Urine Result Comment: Cutoff threshold at 300 ng/mL. LAB UAMPH2 Negative Amphetamines, Urine Negative Result Comment: Cutoff threshold at 1000 ng/mL. LAB UTHC2 Negative Cannabinoids, Urine Negative Result Comment: Cutoff threshold at 50 ng/mL. LAB UOPI2 Negative Opiates, Negative Urine Result Comment: Cutoff threshold at 300 ng/mL. LAB UBARB2 Negative Barbiturates, Urine Negative Result Comment: Cutoff threshold at 200 ng/mL. LAB UETOH <11 mg/dL <11 Ethanol, Urine LAB UOXYC Negative Oxycodone, Negative Urine Result Comment: Cutoff threshold at 100 ng/mL. Comment: Immunoassay screen only. Cross reactivity with other substances can occur with immunoassay screening. Detection of any drug(s) in this urine toxicology panel is presumptive only. These tests are for med ical purposes only and should not be used for compliance monitoring, legal, or forensic use. In clinical settings, confirmatory testing is at the practitioner's discretion [1]. If clinically indicated, confirmation by high specificity, quantitative methodology may be requested on the same speci men through Client Services ([phone]) if contacted within 48 hours of initial testing. [1]Substance Abuse and Mental Health Services Administration (2012). Clinical Drug Testing in Primary Care Technical Assistance Publication Series 32. Department of Health and Human Services, [place], p.10. These tests were developed and their performance characteristics determined by [facility]'s [facility] ([facility]). They have not been cleared or a pproved by the FDA. [facility] is regulated under CLIA as qualified to perform high complexity testing. These tests are used for clinical purposes. They should not be regarded as investigational or for research. Performed By: #### UTOX2 #### [place] [address] Observed: 01/28/2018 Status: F Source: [place] VAGINAL SMR WADE 12:23 PM [facility] REPOSITORY Sp. Request/Comment: - Swab Smear Result - BACTERIAL VAGINOSIS RESULT: Stain results consistent with normal vaginal best. Many --> ABNORMAL ALERT Yeast --> ABNORMAL ALERT Many Polymorphonuclear leukocytes Performed By: #### CANSTN #### [place] [id number] GC/CHLAMYDIA AMPLIF Collected: 01/28/2018 Status: F Source: [place] 10:50 AM [facility] REPOSITORY TYPE CODE TESTS RESULT OUT OF REFERENCE UNITS RANGE LAB GCCTSR GC/Chlam Amp Vaginal Source LAB GCAMPL GC Negative Amplification for Neisseria gonorrhoeae by amplification. LAB CLAMPL Chlamydia Negative Amplif for Chlamydia trachomatis by amplification. Performed By: #### GCCT #### [place] [address] PROGRESS Observed: 01/28/2018 Status: COMPLETED Source: [place] 9:53 AM [facility] REPOSITORY HNO ID: [id number] Author: Dasia Perkins Service: (none) Author Type: Physician Type: Progress Notes Filed: 01/28/2018 10:52 AM Note Text: INITIAL OB ASSESSMENT Obstetric History T0 L0 SAB0 TAB0 Ectopic0 Multiple0 Live Births0 Name of Baby 1: Not recorded Date: Not recorded GA: Not recorded Delivery: Not recorded Apgar1: Not recorded Apgar5: Not recorded Living: Not recorded HPI: [place] Watkins is a 22 year old female here to establish Obstetrical Care. Patient's last menstrual period was 11/29/2017 (approximate). from OB Dating Form. Complaints: None was unplanned but accepted. Obstetric History T0 L0 SAB0 TAB0 Ectopic0 Multiple0 Live Births0 Prior : never History of 4th degree laceration: No Patient's Risk Screening for delivery: History of abnormal pap: No Prior treatment for cervical dysplasia: none. 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 Patient BMI over 30? No Marital Status:Committed relationship PAST MEDICAL HISTORY Diagnosis Date - Chronic seasonal allergic rhinitis 10/18/2017 - Constipation PAST SURGICAL HISTORY Procedure Laterality Date - COLONOSCOP W/ OR W/O BRSH SPEC 10/30/2017 Colonoscopy - DENTAL SURGERY HX 2004 - EGD W/O OR W/BRUSH/WASH 10/30/2017 EGD Current Outpatient Prescriptions on File Prior to Visit: Nupgheak-Mh-Gny-Fe-FA ( VITAMIN) tab Take 1 tablet by mouth. norgestimate 0.25 mg-ethinyl estradiol 35 mcg (ESTARYLLA) 0.25-35 mg-mcg per tablet Take 1 tablet by mouth once daily. omeprazole (PRILOSEC) 20 mg capsule Take 1 capsule by mouth once daily. metroNIDAZOLE (FLAGYL) 500 mg tablet Take 1 tablet by mouth twice daily. acetaminophen (TYLENOL) 325 mg tablet Take 650 mg by mouth every 6 hours as needed. polyethylene glycol 3350 (MIRALAX, GLYCOLAX) 17 gram packet Take 17 g by mouth once daily. as needed No current facility-administered medications on file prior to visit. Review of Systems: GENERAL: Negative for: Fever or Chills HEENT: Negative for: Headache, Impaired Vision, Ringing in Ears, Nosebleeds NECK: Negative for: Swelling, Pain, Stiffness RESPIRATORY: Negative for: Cough, Shortness of breath, Wheezing GASTROINTESTINAL: Negative for: Heartburn, Constipation, Diarrhea, Blood in stool, Vomiting MUSCULOSKELETAL: Negative for: Muscle or joint pain, stiffness, Joint swelling NEUROLOGIC/PSYCHIATRIC: Negative for: Weakness, Paralysis, Numbness, Tingling, Tremor, Anxiety, Depression, Memory loss SKIN: Negative for: Rash, Itching GENITOURINARY: Negative for: hematuria or dysuria; reports vaginal itching with green discharge PHYSICAL EXAM: LMP 11/29/2017 GENERAL: pleasant female in no apparent distress DERMATOLOGY: Normal, without lesions, non-icteric and non-hirsute NECK: Supple, full range of motion, no adenopathy and thyroid normal CHEST: Normal inspiratory effort BREAST: soft, non-tender, symmetric, no dominant mass, normal nipple-areolar complex, no lymphadenopathy and no nipple discharge ABDOMEN: soft, non-tender and no masses NEURO: alert and oriented x3,exam grossly non-focal PELVIS: External genitalia normal without lesions. Perineal body intact. No vaginal or cervical lesions. Cervix closed. Uterus 8 week size. No adnexal masses or tenderness. Clinical Pelvimetry: Pelvimetry clinically assessed as adequate Limited OB ultrasound exam: single intrauterine and positive cardiac activity ASSESSMENT: 22 year old at 8AND4 wks gestational age PLAN: 1) Patient oriented to practice. Discussed nutrition, folic acid supplementation, dietary guidelines, exercise, smoking, alcohol, caffeine, and drug use. Discussed routine OB labs including STD/HIV. Discussed aneuploidy screening options including serum screening and nuchal translucency. Patient declines all aneuploidy screening. CF carrier screening discussed and declined. 2) See problem list 3) Vaginal discharge with itching - check vaginitis panel AND GC/chlam Follow up in 4 weeks or sooner prn. Dasia Perkins MD Observed: 01/28/2018 Status: F Source: [place] URINE CULTURE 3:43 AM [facility] [place] REPOSITORY Sp. Request/Comment: - Specimen received in preservative Culture Result - 10,000 - <50,000 CFU/ml Normal urogenital best Performed By: #### URCUL #### [facility] [address] [place], [place] [address] POST VOID RESIDUAL Observed: 01/07/2018 Status: F Source: [place] 10:42 AM [facility] REPOSITORY [facility] Imaging Services [address] [place] [address] Post Void Residual Bladder MR#: [id number] Acct: [id number] Name: FLORIDA WATKINS Rep #: [id number] : 1995 F 22 From: Crispin Beth MD PCP: Boo Millan MD Status: REG CLI Study: Post Void Residual Bladder Date of Exam: 01/07/18 Exam# [id number] Ordering Dr: Eugene Caldwell MD STUDY: ULTRASOUND - URINARY BLADDER REASON FOR EXAM: Female, 22 years old. Hematuria. Burning with urination. TECHNIQUE: Ultrasound evaluation of the urinary bladder was performed with real-time and static benitez-scale imaging. COMPARISON: None. FINDINGS: There is no right UVJ calculus. There is a visualized right ureteral jet. There is no left UVJ calculus. There is a visualized left ureteral jet. The distended volume of the urinary bladder is 352.3 ml. The empty volume of the urinary bladder is 28.2 ml. The bladder wall is within normal limits. The bladder wall measures . There is no demonstrated bladder wall mass lesion. There are no demonstrated bladder calculi. US/Post Void Residual Bladder IMPRESSION: Normal ultrasound of the urinary bladder. Electronically Signed: Crispin Beth MD at 16:04 EST Tel [phone], Service support , CC: Eugene Caldwell MD; Boo Millan MD Awning Hanger: Signed HCG, QUANTITATIVE BL Collected: 01/07/2018 Status: F Source: [place] 9:50 AM [facility] [place] REPOSITORY TYPE CODE TESTS RESULT OUT OF REFERENCE UNITS RANGE LAB HCGQT <5.0 mU/mL HCG, High Quantitative Bl 9550.0 Result Comment: QUANTITATIVE HCG NORMAL RANGES Weeks of Gestation (Weeks Since LMP) 3 Weeks (5.8-71.2 mIU/mL) 4 Weeks (9.5-750 mIU/mL) 5 Weeks (217-7138 mIU/mL) 6 Weeks (158-29619 mIU/mL) 7 Weeks (3697-150159 mIU/mL) 8 Weeks (50056-474387 mIU/mL) 9 Weeks (35456-308523 mIU/mL) 10 Weeks (54763-553403 mIU/mL) 12 Weeks (75569-281633 mIU/mL) Referenced to 4th IS of NIBS Performed By: #### HCGQT #### [facility] [address] [place], [place] [address] HCG, QUANTITATIVE BL Collected: 01/03/2018 Status: F Source: [place] 3:02 PM [facility] REPOSITORY TYPE CODE TESTS RESULT OUT OF REFERENCE UNITS RANGE LAB HCGQT <5.0 mU/mL HCG, High Quantitative Bl 3292.0 Result Comment: QUANTITATIVE HCG NORMAL RANGES Weeks of Gestation (Weeks Since LMP) 3 Weeks (5.8-71.2 mIU/mL) 4 Weeks (9.5-750 mIU/mL) 5 Weeks (217-7138 mIU/mL) 6 Weeks (158-66093 mIU/mL) 7 Weeks (3697-558373 mIU/mL) 8 Weeks (00009-732416 mIU/mL) 9 Weeks (01204-130583 mIU/mL) 10 Weeks (83235-205585 mIU/mL) 12 Weeks (63495-305548 mIU/mL) Referenced to 4th IS of NIBS Performed By: #### HCGQT #### [facility] [address] [place] [address] ALLERGIES ALLERGIES DATE TYPE / CODE NAME / CODE REACTION SEVERITY SOURCE 11/08/2018 Drug No Known Unknown [facility] Allergy/416 Allergies/U41216 [facility] [id number](SNOM 0388(RXNORM) Repository ED CT) 04/28/2009 Environ/420 SEASONAL [facility] [id number](SNOM ALLERGIES [place]) Repository ENCOUNTERS ENCOUNTERS ADMIT/DISCHARGE ACCOUNT ADMITTING ENCOUNTER LOCATION SOURCE NUMBER CLASS 12/05/2018/12/08/19 [id number] Ambulatory [address] Repository 11/14/2018/11/16/20 [id number] Ambulatory [address] Repository 11/12/2018/11/12/20 [id number] Ambulatory [address] Repository 11/08/2018/11/08/20 [id number] Emergency [place] [address] [place] [address] ing:ED Repository 11/07/2018 [id number] Ambulatory [facility] ing:LABSPEC Repository 11/07/2018/11/08/20 [id number] Ambulatory [place] [address] [facility] [place] Repository 11/07/2018/11/08/20 [id number] Ambulatory [place] [address] [facility] [place] Repository 11/07/2018/11/07/20 [id number] Ambulatory [place] [facility] [place] Repository 11/07/2018/11/10/20 [id number] Ambulatory [place] [address] [facility] [place] Repository 10/15/2018/10/17/20 [id number] Ambulatory [place] [address] [facility] [place] Repository 10/10/2018/10/13/20 [id number] Ambulatory [place] [address] [facility] [place] Repository 09/11/2018/09/12/20 [id number] Ambulatory [place] [address] [facility] [place] Repository 09/03/2018/09/04/20 [id number] Ambulatory [address] [place] Repository 09/02/2018/09/02/20 [id number] Ambulatory [address] ing:WPOUTRoom Repository : WPOLRM 08/29/2018/09/01/20 [id number] Dasia Perkins Inpatient [address] ing:WPRoom: Repository [id number]: 1 08/26/2018/08/28/20 [id number] Ambulatory [address] [place] Repository 08/19/2018/08/20/20 [id number] Ambulatory [address] [place] Repository 08/15/2018/08/18/20 [id number] Ambulatory [place] [facility] [place] Repository 08/08/2018/08/11/20 [id number] Ambulatory [place] [address] [facility] [place] Repository 07/25/2018/07/29/20 [id number] Ambulatory [place] [address] [facility] [place] Repository 07/11/2018/07/14/20 [id number] Ambulatory [place] [facility] [place] Repository 07/08/2018/07/09/20 [id number] Ambulatory [address] [place] Repository 06/17/2018/06/17/20 [id number] Ambulatory [place] [address] [facility] [place] Repository 06/17/2018/06/18/20 [id number] [place] [facility] [place] Repository 06/11/2018 [id number] Ambulatory [facility] ing:LABSPEC Repository 06/11/2018/06/12/20 [id number] Ambulatory [place] [facility] [place] Repository 05/27/2018/05/29/20 [id number] Amb[place] [facility] [place] Repository 05/09/2018/05/12/20 [id number] Ambulatory [place] [facility] [place] Repository 04/28/2018/04/28/20 [id number] [facility] [place] [facility] [place] Repository 04/17/2018/04/18/20 [id number] Amb[place] [facility] [place] Repository 04/15/2018/04/17/20 [id number] Ambulatory [place] [facility] [place] Repository 04/15/2018/04/17/20 [id number] Amb[place] [facility] [place] Repository 04/08/2018/04/10/20 [id number] Ambulatory [place] [facility] [place] Repository 03/27/2018 [id number] [facility] [place] Repository 03/27/2018/03/27/20 [id number] Amb[facility] [place] [facility] [place] Repository 03/17/2018/03/18/20 [id number] [facility] [place] [facility] [place] Repository 02/27/2018/02/28/20 [id number] [facility] [place] [facility] [place] Repository 02/27/2018/02/29/20 [id number] [facility] [place] [facility] [place] Repository 02/25/2018/02/28/20 [id number] [facility] [place] [facility] [place] Repository 02/05/2018/02/08/20 [id number] [facility] [place] Repository 01/28/2018/01/29/20 [id number] [facility] [place] Repository 01/16/2018/01/24/20 [id number] [facility] [place] Repository 01/07/2018 [id number] Ambulatory [facility] ing:USHP Repository 01/07/2018/01/07/20 [id number] Ambulatory [place] [facility] [place] Repository 01/03/2018/01/03/20 [id number] Ambulatory [place] [address] [facility] [place] Repository PAYERS PAYERS ENCOUNTER GUARANTOR PAYER SUBSCRIBER SOURCE 11/08/2018 [place] Jeter Primary BOO T CHASEDOB: [place] [id number] Insurance:CIGNAPolicy [id number] Community MICHELLE DRLOT Number: [address] [id number] Repository [address]Bqc: ([phone]) Date:0242-37-75FF [phone] () [id number], [place] [address]IQ: 11/08/2018 Secondary NOT GIVENUNK [place] Insurance:SELF PAY Community [facility]: Effective Repository Date:2018-11-08 11/07/2018 [place] Jeter Primary BOO T CHASEDOB: [place] [id number] Insurance:CIGNAPolicy [id number] Community MICHELLE DRLOT Number: [address] [id number] Repository [address]Bhh: (330) Date:6071-43-12RN [phone] () [id number], [place] [address]KC: 11/07/2018 Secondary NOT GIVENUNK [place] Insurance:SELF PAY Community [facility] Number: Effective Repository Date:2018-11-07 09/02/2018 [place] Jeter Primary BOO T CHASEDOB: [place] [id number] Insurance:CIGNAPolicy [id number] Community MICHELLE DRLOT Number: [address] [id number] Repository [address]Cfx: ([phone]) Date:[id number] [phone] () [id number], [place] [address]ID: 09/02/2018 Secondary NOT GIVENUNK [place] Insurance:SELF PAY [facility]: Effective Repository Date:2018-09-02 08/29/2018 [place] A Primary BOO CHASEDOB: [place] [id number] Insurance:CIGNAPolicy [id number] Community MICHELLE DRLOT Number: [address] [id number] Repository [address]Acj: ([phone]) Date:1999-34-40ID [phone] () [id number], [place] [address]QW: 08/29/2018 Secondary NOT GIVENUNK [place] Insurance:SELF PAY [facility] Number: Effective Repository Date:2018-07-30 06/11/2018 [place] Primary BOO CHASEDOB: [place] [id number] Insurance:CIGNAPolicy [id number] BOX Number: [address] [id number] Repository [address]Ted: (330) Date:3751-54-76UU [phone] () [id number], [place] [address]YE: 06/11/2018 Secondary NOT GIVENUNK [place] Insurance:SELF PAY [facility] Number: Effective Repository Date:2018-06-11 01/07/2018 [facility] BOO CHASEDOB: [place] [id number] Insurance:CIGNAPolicy [id number] BOX Number: [address] [id number] Repository [address]Xjw: (330) Date:5900-38-78IA [phone] () [id number], [place] [address]AP: 01/07/2018 Secondary NOT GIVENUNK [place] Insurance:SELF PAY [facility] Number: Effective Repository Date:2017-12-26
== END ==
PROVIDERS: Family Provider Family Medicine; PCP Family Medicine; Referring Provider Nurse Practitioner Primary Care; Visit Provider Nurse Practitioner Primary Care
DX: R42 Dizziness and giddiness (principal); R00.2 Palpitations; R94.31 Abnormal electrocardiogram [ECG] [EKG]
CPT/HCPCS: 85379

== ENCOUNTER 2018-11-08 07:43 | Emergency (ER) | payer OTHER, SELFPAY ==
[2018-11-08 07:44] VITALS: BP 119/73; PULSE 89; RESP 14; TEMP 36.4; O2SAT 99; BMI 29.5
--- NOTE | 2018-11-08 07:52 | NURSING ---
NO OLD EKGS
--- NOTE | 2018-11-08 08:00 | EKG12_ITS ---
Test Reason : SOB Blood Pressure : / mmHG Vent. Rate : 084 BPM Atrial Rate : 084 BPM P-R Int : 136 ms QRS Dur : 094 ms QT Int : 370 ms P-R-T Axes : 081 077 057 degrees QTc Int : 437 ms Normal sinus rhythm with sinus arrhythmia Normal ECG Confirmed by MILADY CHÁVEZ, ENEDELIA ([id number]), assignment desk editor FELIX OREILLY ([id number]) on 11/12/2018 3:52:17 PM Referred By: Antonino Carty Confirmed By:ENEDELIA HENNING MD
--- NOTE | 2018-11-08 08:01 | CT_ITS ---
STUDY: CTA CHEST REASON FOR EXAM: Female, 23 years old. ELEV DDIMER, IN AUGUST. RADIATION DOSAGE (If Supplied By Facility): CTDIvol = ( 12.99 ) mGy, DLP = ( 550.42 ) mGycm TECHNIQUE: The examination was performed with the intravenous administration of 75ML ml of Isovue 370 contrast material. Post-processing of the angiographic images was performed, with multiplanar reformation and 3D reconstruction. Individualized dose optimization techniques were used for this CT. COMPARISON: None. FINDINGS: Normal enhancement of the main pulmonary artery and right and left pulmonary arteries. Normal enhancement of the bilateral peripheral pulmonary arteries. There is no demonstrated pulmonary embolism. Normal thoracic aorta and visualized great vessels. There is no demonstrated aortic dissection. Normal heart and pericardium. Normal mediastinum. Normal hilar regions. Normal visualized trachea and bronchi. The lungs are well expanded. Normal pulmonary parenchyma. Normal pleura. Normal chest wall structures. Normal osseous structures. Normal visualized upper abdomen. CT/CTA Chest W/WO Contrast IMPRESSION: Normal CTA chest examination, without a demonstrated pulmonary embolism or arterial dissection. Electronically Signed: Akil Vaughan MD at 9:29 EST Tel , Service support ,
[2018-11-08 08:24] VITALS: BP 122/78; PULSE 75; RESP 12; O2SAT 98
[2018-11-08] MEDS: 0.9% Normal Saline 1,000 ML 1000 ML IV (08:36)
[2018-11-08 08:44] LABS: Absolute Lymphocyte Count 1.86 X10^3/ul (0.83-4.51); Basophil# 0.01 X10^3/uL; Basophil% 0.2 % (0-1); Eosinophil# 0.34 X10^3/uL; Eosinophils% 5.2 % (0-5); Hematocrit 39.3 % (37-47); Hemoglobin 13.3 g/dl (12.0-15.0); Lymphocyte # 1.86 X10^3/ul (4.0); Lymphocyte % 28.2 % (19-41); Mean Corp Hgb Conc 33.8 g/gl (32-36); Mean Corpuscular Hgb 27.6 pg (27.0-32.0); Mean Corpuscular Volume 81.5 fL (81-99); Mean Platelet Vol. 8.2 fl (6.2-12.0); Monocyte% 6.1 % (0-10); Neutrophil # 3.97 X10^3/uL (2.7-7.7); Neutrophil % 60.1 % (47-70); POSITIVE COUNT NO; POSITIVE DIFFERENTIAL NO; POSITIVE MORPHOLOGY NO; Platelet Count 324 K/mm3 (150-450); RBC Distribution Width CV 13.6 % (11.6-14.6); RBC Distribution Width SD 40.9 fl (35.1-43.9); Red Blood Count 4.82 M/mm3 (4.2-5.4); White Blood Count 6.6 K/mm3 (4.4-11.0)
[2018-11-08 08:52] LABS: Anion Gap 10 (5-15); BUN 14 mg/dL (7-18); BUN/Creat Ratio 18.5 RATIO (10-20); Calcium,Total 8.9 mg/dL (8.5-10.1); Chloride 109 mmol/L (98-107); Creatinine, Serum 0.76 mg/dL (0.55-1.02); EST Glomerular Filtration Rate 102 mL/min (>60); Est Glom Filt Rate - Afr Amer 124 mL/min (>60); Estimated Creatinine Clearance 105.36 ml/min; Glucose 82 mg/dL (74-106); Sodium Level 141 mmol/L (136-145)
--- NOTE | 2018-11-08 09:40 | ED.VISSUMM ---
- ER Visit Summary Date of Service: 11/08/18 Chief Complaint: [Shortness of breath] History of Present Illness: The patient is a 23 F [presents to the emergency department complaint of shortness of breath that started about a week ago. Patient intermittently has felt lightheaded. Patient has had a slight cough but no sputum production and no fever. Patient was seen by nurse practitioner yesterday and her primary care physician's office who ordered an EKG which showed some abnormalities apparently and also had a D-dimer test that was positive. Patient had recent August 29. Patient denies any chest pain. She denies any swelling in the extremities out of the ordinary. She denies recent travel.] Physical Examination: [HEENT-PERRLA, EOMI. Cranial nerves II through XII grossly intact. TMs clear. Mucous membranes moist. No adenopathy. Cardiovascular-regular rate and rhythm without murmur or ectopy Lungs-clear to auscultation, chest wall stable without crepitus or subcu emphysema Abdomen-normoactive bowel sounds, soft, nontender, no rebound or rigidity, no peritoneal signs. Extremities-intact ?4, normal range of motion, normal pulses, atraumatic] Test Results: [EKG obtained on arrival showed sinus rhythm with a ventricular rate of 84 bpm with occasional PACs. CBC with differential was normal with a white blood cell count 6.6, hemoglobin 13, hematocrit 39. Chemistries were normal. Troponin was less than 0.015. Patient did have a slightly elevated d-dimer yesterday therefore CTA of the chest was obtained which was normal] Emergency Department Course and Treatment: [] Treatment Plan: [Patient was reassured that I did not see anything concerning or life-threatening. Patient advised to follow-up with her primary care physician within next 5-7 days.] Disposition: [Discharged home in stable condition Impression: [Dyspnea-etiology uncertain] This note was generated with [employer] dictation software. It may contain incorrect words, spelling, and punctuation that were not noted in review of the chart prior to signing ED Disposition - Plan for ED Patient: Chief Complaint: Shortness of Breath Referrals: Mc Millan MD [Primary Care Provider] -
--- NOTE | 2018-11-08 09:43 | ED.DCSUM_ITS ---
- ER Visit Summary Date of Service: 11/08/18 Chief Complaint: [Shortness of breath] History of Present Illness: The patient is a 23 F [presents to the emergency department complaint of shortness of breath that started about a week ago. Patient intermittently has felt lightheaded. Patient has had a slight cough but no sputum production and no fever. Patient was seen by nurse practitioner yesterday and her primary care physician's office who ordered an EKG which showed some abnormalities apparently and also had a D-dimer test that was positive. Patient had recent August 29. Patient denies any chest pain. She denies any swelling in the extremities out of the ordinary. She denies recent travel.] Physical Examination: [HEENT-PERRLA, EOMI. Cranial nerves II through XII grossly intact. TMs clear. Mucous membranes moist. No adenopathy. Cardiovascular-regular rate and rhythm without murmur or ectopy Lungs-clear to auscultation, chest wall stable without crepitus or subcu emphysema Abdomen-normoactive bowel sounds, soft, nontender, no rebound or rigidity, no peritoneal signs. Extremities-intact ?4, normal range of motion, normal pulses, atraumatic] Test Results: [EKG obtained on arrival showed sinus rhythm with a ventricular rate of 84 bpm with occasional PACs. CBC with differential was normal with a white blood cell count 6.6, hemoglobin 13, hematocrit 39. Chemistries were normal. Troponin was less than 0.015. Patient did have a slightly elevated d- dimer yesterday therefore CTA of the chest was obtained which was normal] Emergency Department Course and Treatment: [] Treatment Plan: [Patient was reassured that I did not see anything concerning or life-threatening. Patient advised to follow-up with her primary care physician within next 5-7 days.] Disposition: [Discharged home in stable condition Impression: [Dyspnea-etiology uncertain] This note was generated with [employer] dictation software. It may contain incorrect words, spelling, and punctuation that were not noted in review of the chart prior to signing ED Disposition - Plan for ED Patient: Chief Complaint: Shortness of Breath Referrals: Mc Millan MD [Primary Care Provider] -
--- NOTE | 2018-11-08 09:43 | ED.DEP ---
ED Disposition - Plan for ED Patient: Chief Complaint: Shortness of Breath Instructions: ED Dyspnea Shortness of Breath Referrals: Mc Millan MD [Primary Care Provider] - 5-7 Days
[2018-11-08 09:57] VITALS: BP 121/75; PULSE 78; RESP 17; O2SAT 98
--- OUTSIDE RECORDS SUMMARY | 2019-02-11 08:34 | XMS RPT_ITS ---
:1995 Author Organization OHIP Support Name Relationship Address Phone [address] + [place] [address] PARVIZ DOWD Unavailable [address] [place] [address] [place] Unavailable [facility] + [place] [address] + [place] [address] PARVIZ DOWD Unavailable [address] [place] [address] [place] Unavailable [address] [facility] [address] + [place] [address] + [place] [address] PARVIZ DOWD Unavailable [address] [place] [address] [place] Unavailable [facility] + [place] [address] + [place] [address] PARVIZ DOWD Unavailable [address] [place] [address] [place] Unavailable [facility] + [place] [address] PANCHITO REYNA Unavailable [address] + [place] [address] PARVIZ DOWD Unavailable [address] + [place] [address] [place] Unavailable [facility] + [place] [address] PANCHITO REYNA Unavailable [address] + [place] [address] PARVIZ DOWD Unavailable [address] + [place] [address] [facility] Unavailable [facility] + [place] [address] Care Team Providers Name Role Phone GREGORIO KARMON Referring Unavailable GREGORIO, KARMON Referring Unavailable GREGORIO, KARMON Attending Unavailable SHU COLLAZO (CNM) Attending Unavailable GREGORIO, KARMON Attending Unavailable GREGORIO, KARMON Referring Unavailable KALYANI BROWN ([facility]) Attending Unavailable KALYANI BROWN ([facility]) Referring Unavailable JELANI DELGADO ([facility]) Attending Unavailable GREGORIO, KARMON Attending Unavailable [...] Unavailable GREGORIO, KARMON Referring Unavailable IVÁN RODRIGUEZ ([facility]) Attending Unavailable IVÁN RODRIGUEZ ([facility]) Referring Unavailable IVÁN RODRIGUEZ ([facility]) Referring Unavailable IVÁN RODRIGUEZ ([facility]) Referring Unavailable BOO MILLAN Referring Unavailable IVÁN RODRIGUEZ ([facility]) Attending Unavailable IVÁN RODRIGUEZ ([facility]) Attending Unavailable IVÁN RODRIGUEZ ([facility]) Referring Unavailable Iván Rodriguez Attending Unavailable Iván Rdoriguez Referring Unavailable Boo Millan Primary Care Unavailable [...] R42 - Dizziness and Iván Rodriguez Active [facility] giddiness / Community R42(ICD-10) Hospital Repository 11/07/2018 Active Palpitations / NA Active [facility] R00.2(ICD-10) Clinic Main [place] Repository 11/07/2018 Active Abnormal NA Active [facility] electrocardiogram Clinic Main (ECG) (EKG) / [place] R94.31(ICD-10) Repository 11/07/2018 Active Dizziness and NA Active [facility] giddiness / Clinic Main R42(ICD-10) [place] Repository 09/02/2018 Unknown L25.9 - Unspecified Dasia Perkins Active [facility] contact dermatitis, Community unspecified cause / Hospital L25.9(ICD-10) Repository 06/17/2018 Active Encounter for Active [facility] supervision of normal Clinic Main first , third [place] trimester / Repository Z34.03(ICD-10) 06/17/2018 Active 28 weeks gestation of NA Active [facility] / Clinic Main Z3A.28(ICD-10) [place] Repository 06/12/2018 Unknown N89.8 - Other Chiqui, Brandin Active [facility] specified Community noninflammatory Hospital disorders of vagina / Repository N89.8(ICD-10) 06/12/2018 Unknown O47.9 - False labor, Chiqui, Brandin Active [facility] unspecified / Community O47.9(ICD-10) Hospital Repository 06/12/2018 Unknown O26.892 - Other Chiqui, Brandin Active [facility] specified Community related conditions, Hospital second trimester / Repository O26.892(ICD-10) 03/27/2018 Active Encounter for NA Active [facility] supervision of normal Clinic Main first , [place] unspecified trimester Repository / Z34.00(ICD-10) 02/27/2018 Active Other chest pain / NA Active [facility] R07.89(ICD-10) [facility] Main [place] Repository 02/27/2018 Active Shortness of breath / NA Active [facility] R06.02(ICD-10) [facility] Main [place] Repository 01/28/2018 Active Unknown / UNK(Unknown) DASIA PERKINS Active [facility] Main [place] Repository 01/03/2018 Active Other specified NA Active [facility] related Clinic Main conditions, [place] unspecified trimester Repository / O26.899(ICD-10) 01/03/2018 Active Pelvic and perineal NA Active [facility] pain / R10.2(ICD-10) [facility] Main [place] Repository PROCEDURES PROCEDURES No Procedure Records FoundRESULTS RESULTS PROGRESS Observed: 12/05/2018 Status: COMPLETED Source: [place] 2:14 PM [facility] REPOSITORY HNO ID: [id number] Author: Iván (Natalia) Carloz Service: (none) Author [...] 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 Potential red flag symptoms discussed with the patient. Reviewed appropriate action plan to take if red flag symptoms occur. Patient agreeable to treatment plan. Iván Rodriguez APRN.NATALIA Referring Provider: IVÁN RODRIGUEZ ([facility]) [[id number]] Allergies As of Date: 12/05/2018 Noted Allergy [...] 12/05/18 PROGRESS Observed: 11/14/2018 Status: COMPLETED Source: [place] 1:33 PM [facility] REPOSITORY HNO ID: [id number] Author: Iván (Natalia) Carloz Service: (none) Author [...] - Instructed patient to contact office or [id number] after-hours promptly should condition worsen or any new symptoms appear. - [facility] and after hours crisis line Prescription instructions reviewed with patient as applicable. Potential red flag symptoms discussed with the patient. Reviewed appropriate action plan to take if red flag symptoms occur. Patient agreeable to treatment plan. Iván Rodriguez APRN.ENVIRONMENTAL ENGINEER SCIENTIST CNOV Observed: 11/14/2018 Status: COMPLETED Source: [place] 12:40 PM [facility] REPOSITORY Office Visit (INTMWS) FLOR[place] WATKINS ([id number]) 1995 F Date Time Provider Department 12/21/18 12:40 PM IVÁN RODRIGUEZ (ENVIRONMENTAL ENGINEER SCIENTIST) INTMWS During your visit today, we recorded the following information about you: Temperature Pulse Respiration Blood pressure 98.6 degrees 80/minute 16/minute 128/76 Weight 78.9 kg Iván Rodriguez APRN.ENVIRONMENTAL ENGINEER SCIENTIST 11/14/2018 1:26 PM Signed You start zoloft [...] - Instructed patient to contact office or acdkw-qq-onzv after- hours promptly should condition worsen or any new symptoms appear. - [facility] and after hours crisis line Prescription instructions reviewed with patient as applicable. Potential red flag symptoms discussed with the patient. Reviewed appropriate action plan to take if red flag symptoms occur. Patient agreeable to treatment plan. 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] Order(s):CONSULT TO PSYCHOLOGY [0107] Order #: [id number]: 1 sertraline (ZOLOFT) 50 mg tabletTake 1 [...] LEAD ELECTROCARDIOGRAM Observed: 11/12/2018 Status: F Source: [place] 3:52 PM [facility] Cardiovascular Services [address] [place] [address] 12 Lead EKG 11/08/18 0803 MR#: [id number] Acct: [id number] Name: FLORIDA WATKINS Rep #: [id number] : 1995 23 From: Jameel Alvares MD [...] ECG Confirmed by MILADY CHÁVEZ, JAMEEL ([id number]), food expeditor FELIX OREILLY ([id number]) on 11/12/2018 3:52:17 PM Referred By: Iván Rodriguez Confirmed By:JAMEEL ALVARES MD 11/12/18 1552 Date Jameel Alvares MD CC: Boo Millan MD; Andre Mccabe DO Signed EMERGENCY DEPARTMENT Observed: 11/08/2018 Status: F Source: [place] SUMMARY 9:43 AM [facility] REPOSITORY [facility] Medical Records Department [address] [place] [address] Emergency Department Summary 11/08/18 0940 MR#: [id number] Acct: [id number] Name: FLORIDA WATKINS Rep #: [id number] : 1995 23 From: Andre Mccabe DO [...] [Dyspnea-etiology uncertain] This note was generated with [employer] dictation software. It may contain incorrect words, [...] problems, contact your Primary Care Provider. Call [facility] ([phone]) or report to the closest Emergency Room. Call 911 if necessary. 11/08/18 0943 <Electronically signed by Remus Ungur DO> Date Christius Mixrajesh DO Cosigner Signature (If Indicated): Date CC: Boo Millan MD DISCHARGE INSTRUCTION Observed: 11/08/2018 Status: F Source: [place] 9:43 AM [facility] REPOSITORY [facility] Medical Records Department [address] [place] [address] Discharge Instruction 11/08/18942 MR#: [id number] Acct: [id number] Name: FLORIDA WATKINS Rep #: [id number] : 1995 23 From: Andre Mccabe DO [...] your Primary Care Provider. Call [facility] ([phone]) or report to the closest Emergency Room. Call 911 if necessary. 11/08/18942 <Electronically signed by Andre Mccabe DO> Date Rem Ungrajesh DO Cosigner Signature (If Indicated): Date CC: Boo Millan MD CBC W/DIFF, AUTOMATED Collected: 11/08/2018 Status: F Source: [place] 8:15 AM [facility] REPOSITORY TYPE CODE TESTS RESULT OUT [...] Lymph 1.86 Performed By: #### L100.0100 #### [facility] [address] [place], [place], [address] BASIC METABOLIC Collected: 11/08/2018 Status: F Source: [place] PROFILE ([facility]) 8:15 AM [facility] REPOSITORY TYPE CODE TESTS RESULT OUT OF [...] 10 Performed By: #### L500.2500, L501.4010 #### [facility] [address] [facility] [place], [place], [address] TROPONIN-I Collected: 11/08/2018 Status: F Source: [place] 8:15 AM [facility] REPOSITORY TYPE CODE TESTS RESULT OUT OF RANGE REFERENCE UNITS LAB L501.4010 <0.045 ng/mL Normal < 0.015 TROPONIN-I Result Comment: TROPONIN-I EXPECTED VALUES <0.045 Negative 0.045 - 0.590 Consistent with Cardiac Damage > OR = 0.600 Critical Value Not every elevated troponin is indicative of NV. These values should be used with clinical judgement in examining the patient's clinical picture for diagnosis. To establish a diagnosis of NV versus myocardial injury, there must be a demonstrated rise and/or fall in the troponin values, in addition to ischemic symptoms, EKG changes, new regional wall motion abnormality, and/or angiographical evidence. PLEASE NOTE: REFERENCE RANGES EDITED 18 Performed By: #### L500.2500, L501.4010 #### [facility] [address] [facility] [place], [address] CTA CHEST W/WO Observed: 11/08/2018 Status: F Source: [place] CONTRAST 8:02 AM [facility] REPOSITORY [facility] [place] [address] CTA Chest W/WO Contrast MR#: [id number] Acct: [id number] Name: FLORIDA WATKINS Rep #: [id number] : 1995 F 23 From: Akil Vaughan PCP: Boo Millan MD Status: REG ER Study: CTA Chest W/WO Contrast Date of Exam: 11/08/18 Exam# [id number] Ordering Dr: Andre Mccabe DO STUDY: CTA [...] CC: Boo Millan MD; Andre Mccabe DO Mechanotherapist: Signed D-DIMER QUANTITATIVE Collected: 11/07/2018 Status: F Source: [place] (DVT/PE) 5:05 PM [facility] REPOSITORY TYPE CODE TESTS RESULT OUT OF RANGE REFERENCE UNITS LAB L300.8000 0.27-0.49 FEU/ug/m High alert D-DIMER 0.72 QUANT Result Comment: RESULTS CALLED TO MEDIA MARKETING COORDINATOR FOR IVÁN RODRIGUEZ STEEL SPAR OPERATOR-C 11/07/18 1759 Alex Gonzales. REPORT READ BACK BY SAME . D-Dimer ELEVATED (>0.49): Additional studies and clinical assessments are indicated to conclude diagnosis of: Deep Vein Thrombosis (DVT) or Pulmonary Embolism (PE) Performed By: #### L300.8000 #### [facility] [address] [facility] [place], [place], [address] D DIMER Collected: 11/07/2018 Status: F Source: [place] 4:50 PM [facility] REPOSITORY TYPE CODE TESTS RESULT OUT OF REFERENCE UNITS RANGE LAB DDMER <500 ng/mL FEU D Unable to dimer assay. No specimen received. Result Comment: Account Credited Performed By: #### DDMER #### [facility] [address] [place], [place] [address] TSH Collected: 11/07/2018 Status: F Source: [place] 3:15 PM [facility] REPOSITORY TYPE CODE TESTS RESULT OUT [...] Clinical Practice Guideline. J Clin Endocrinol Metab, 2012:97:3244-7266. 2. Fredi [place]. Overview of thyroid disease in . UpToDate. 2016. Accessed on May 11, 2016. Performed By: #### TSH #### [facility] [address] [place], [place] [address] [place] CBC Collected: 11/07/2018 Status: F Source: [place] 2:34 PM [facility] REPOSITORY TYPE CODE TESTS RESULT OUT OF REFERENCE UNITS RANGE LAB WWBC 3.70-11.00 k/uL [facility] WBC 11.00 LAB WRBC 3.90-5.20 m/uL [facility] RBC 4.79 LAB WHGB 11.5-15.5 g/dL [facility] Hemoglobin 13.0 LAB WHCT 36.0-46.0 % [facility] Hematocrit 40.3 LAB WMCV 80.0-100.0 fL [facility] MCV 84.1 LAB WMCH 26.0-34.0 pg [facility] MCH 27.1 LAB WMCHC 30.5-36.0 g/dL [facility] MCHC 32.3 LAB WRDW 11.5-15.0 % [facility] RDW 13.7 LAB WPLT 150-400 k/uL [facility] Platelet Cnt 349 LAB WMPV 9.0-12.7 fL Low [facility] MPV 8.7 Result Comment: Test performed at: [facility], [address] [place] [address] Rd[address] [place] [address]. BASIC METABOLIC PANL Collected: 11/07/2018 Status: F Source: [place] 2:34 PM [facility] REPOSITORY TYPE CODE TESTS RESULT OUT [...] GFR. PROGRESS Observed: 11/07/2018 Status: COMPLETED Source: [place] 2:12 PM [facility] REPOSITORY HNO ID: [id number] Author: Iván (Natalia) Carloz Service: (none) Author [...] Take 1 tablet by mouth once daily. [id number]-otet-nyskr-qyb ( FORMULA-DHA) 28 mg- 800 mcg- 200 [...] Sinus Rhythm with sinus arrhythmia, HR 96, ID 132ms, QRS 92ms, QT 352ms similar to [...] plan. CNOV Observed: 11/07/2018 Status: COMPLETED Source: [place] 2:00 PM [facility] REPOSITORY Office Visit (INTMWS) FLOR[place] WATKINS ([id number]) 1995 F Date Time Provider Department 11/07/18 [...] resuming caffeinated beverages recently, drinking 2 international Squir[employer] coffees a day and consuming a lot [...] Take 1 tablet by mouth once daily. [id number]-fxbz-ykwqk-bwm ( FORMULA-DHA) 28 mg- 800 mcg- 200 [...] Sinus Rhythm with sinus arrhythmia, HR 96, ID 132ms, QRS 92ms, QT 352ms similar to [...] Order(s):ECG COMPLETE W INTERPRETATION [ECG01] Order #: [id number] FUTURE TSH BLD [SQTSH] Order #: [id number] FUTURE HCG QUAL UR B/O [9866249] Order #: [id number] HOLTER MONITOR 24 HOUR [5730500] Order #: [id number] FUTURE ECHO [872172] Order #: [id number]: 1 FUTURE perflutren lipid microspheres (DEFINITY) 1.1 mg/mL injection (to be provided with echo procedure)Inject 1.3 mL intravenously as directed.Disp: 1.3 mLRfl: 0 [place] CBC [SQWCBC] Order #: [id number] FUTURE [place] ISTAT BMP [SQWSTBMP] Order #: [id number] FUTURE D-DIMER [SQDDMER] Order #: [id number] FUTURE Prescriptions as of 11/07/2018 Sig: FAMOTIDINE [...] 11/07/18 PROGRESS Observed: 10/28/2018 Status: COMPLETED Source: [place] 8:45 AM [facility] REPOSITORY HNO ID: [id number] Author: Shu Turk Service: (none) Author Type: (none) Type: Progress Notes Filed: 10/28/2018 8:45 AM Note Text: Pap logged and normal pap log sent to patient. Shu Turk CYTOLOGY Observed: 10/15/2018 Status: F Source: [place] 3:14 PM [facility] REPOSITORY Specimen originated from [facility] Specimen #: [id number] Submitting Physician: DASIA PERKINS MD SPECIMEN SUBMITTED [...] from every slide are reviewed by a social media analyst. MACIEJ STRICKLAND M.D. (Electronic Signature) CLINICAL DATA ROUTINE EXAM, HPV Testing: Yes, Reflex HPV for ASCUS Date of Last Menstrual Period: STAINS A: CERVICAL, SCREENING, FLUID THIN PREP NURSING SECRETARY Date of Report: 10/27/2018 Date of Procedure: 10/15/2018 Date of Receipt: 10/17/2018 Submitted by: DASIA PERKINS MD Location: [facility] Diagnostic interpretation performed at [facility], [address] [place] [address]. The Pap Smear is a screening test for cervical cancer. False negative results occur with all screening tests, emphasizing the need for rescreening at recommended intervals, and clinical correlation. CNOV Observed: 10/15/2018 Status: COMPLETED Source: [place] 3:10 PM [facility] REPOSITORY Office Visit (WOOB) FLOR[place] WATKINS ([id number]) 1995 F Date Time Provider Department 10/15/18 [...] children: 0 Occupational History Occupation Employer Comment [employer] Social History Main Topics Smoking status: Former [...] Take 1 tablet by mouth twice daily. mrq944-cnvi-nfthr-aya ( FORMULA-DHA) 28 mg- 800 mcg- 200 [...] external genitalia normal, normal Bartholin's glands, urethra, [place]'s glands, no vulvar lesions, no cervical lesions, [...] patient. Shu Turk Referring Provider: DASIA PERKINS [[id number]] Allergies As of Date: 10/15/2018 Noted Allergy Reaction SEASONAL ALLERGIES 04/28/2009 Date Reviewed: 10/15/2018 Reviewed by: Dasia Perkins - Fully Assessed Reason for Visit: Pap Smear [Other] Primary Visit Diagnosis:Encounter for screening for malignant neoplasm of cervix [Z12.4] Other Visit Diagnosis:Vaginal yeast infection [B37.3] Order(s):PAP FLUID CERVICAL SCREENING [[id number]] Order #: [id number]. #:[id number] norgestimate 0.25 mg-ethinyl estradiol 35 mcg (SPRINTEC) 0.25-35 mg-mcg per tabletTake 1 tablet by mouth once daily.Disp: 3 PackageRfl: 5 FUNGAL SCREEN [SQFUNGSC] Order #: [id number]. #:[id number] Prescriptions as of 10/15/2018 Sig: NORGESTIMATE 0.25 [...] Dasia Perkins MD [facility] [address] [place], [place] [address] [place] Jacob0 [address]erv[address] [facility] [address] 10/28/2018 CCF: [id number] Dear [place], We are pleased to inform [...] 10/15/18 PROGRESS Observed: 10/15/2018 Status: COMPLETED Source: [place] 2:57 PM CLINIC [facility]IN [facility]AMPUS REPOSITORY HNO ID: [id number] Author: Dasia Perkins Service: (none) Author Type: [...] children: 0 Occupational History Occupation Employer Comment [employer] Social History Main Topics Smoking status: Former [...] Take 1 tablet by mouth twice daily. mvv425-nujc-vcued-igm ( FORMULA-DHA) 28 mg- 800 mcg- 200 [...] external genitalia normal, normal Bartholin's glands, urethra, Parkside's glands, no vulvar lesions, no cervical lesions, good vaginal support, physiologic discharge present, normal appearing perineal body and perianal region BIMANUAL: uterus normal size, shape and consistency, no adnexal masses and non-tender ASSESSMENT AND PLAN: 23yo female with recurrent vaginal yeast infections Vaginal culture for yeast Pap done Dasia Perkins MD Observed: 10/15/2018 Status: F Source: [place] FUNGUS SCREEN 3:21 AM [facility] REPOSITORY Sp. Request/Comment: - Swab PLEASE DO SENSITIVITIES IF POSITIVE Culture Result - No growth 11 days Performed By: #### FUNGSC #### [facility] [address] [place], [place] [address] PROGRESS Observed: 10/10/2018 Status: COMPLETED Source: [place] 1:08 PM [facility] REPOSITORY HNO ID: [id number] Author: Dasia Perkins Service: (none) Author Type: Physician Type: Progress Notes Filed: 10/10/2018 1:36 PM Note Text: Obstetric History T1 L1 SAB0 TAB0 Ectopic0 Multiple0 Live Births1 Name of Baby 1: Elidia Steve Date: 08/29/18 GA: 39w0d Delivery: C- Section, Low Transverse Apgar1: Not recorded Apgar5: Not recorded Living: Living VISIT [place] Watkins is a 23 year old year old here for visit. Delivery Summary: Recovery: Feeding: Bottle feeding problems: Stopped after 2-3 weeks Menses since delivery: Resumed Menstrual pattern prior to : Regular periods Harrah since delivery: Not resumed Depression: denies symptoms [...] children: 0 Occupational History Occupation Employer Comment [employer] Social History Main Topics Smoking status: Former [...] MD PROGRESS Observed: 09/11/2018 Status: COMPLETED Source: [place] 10:52 AM [facility] REPOSITORY HNO ID: [id number] Author: Dasia Perkins Service: (none) Author Type: [...] MD PROGRESS Observed: 09/03/2018 Status: COMPLETED Source: [place] 10:47 AM [facility] REPOSITORY HNO ID: [id number] Author: Shu Collazo Service: (none) Author Type: Turbine Inspector Type: Progress Notes Filed: 09/03/2018 3:35 PM Note Text: SUBJECTIVE: 23 year old female presents for 2 week exam. Outcome: PCS. Date delivered: 08/29/18. Delivering M.D.: Dasia Perkins MD. Delivered in what hospital? [facility] Lochia: Serosa, Normal depression/mood: None Breast/bottle: Breast [...] APRN.CNM CNOV Observed: 09/03/2018 Status: COMPLETED Source: [place] 10:30 AM [facility] REPOSITORY Office Visit (WOOB) [place] WATKINS ([id number]) 1995 F Date Time Provider Department 09/03/18 [...] Dasia Perkins MD. Delivered in what hospital? [facility] Lochia: Serosa, Normal depression/mood: None Breast/bottle: Breast [...] DISCHARGE SUMMARY Observed: 09/01/2018 Status: F Source: [place] 8:32 AM [facility] REPOSITORY [facility] Medical Records Department [address] [place] [address] Discharge Summary 09/01/18 0829 MR#: [id number] Acct: [id number] Name: [place] WATKINS Rep #: [id number] : 1995 23 From: Brandin Florian CNM PCP: Boo Millan MD Status: ADM IN Location: [address] Discharge Date and Diagnosis Date of [...] 08/31/2018 Status: F Source: [place] 12:04 PM [facility] REPOSITORY [facility] Medical Records Department [address] [place] [address] [place] [address] Discharge Summary 08/31/18 1203 MR#: [id number] Acct: [id number] Name: [place] WATKINS Rep #: [id number] : 1995 23 From: Shu Collazo CNM PCP: Boo Millan MD Status: ADM IN Y Location: [id number] Discharge Date and Diagnosis Date of Admission: [...] 08/31/2018 Status: F Source: [place] 12:03 PM [facility] REPOSITORY [facility] Medical Records Department [address] [place] [address] Instructions for Home/Discharge Instructions 08/31/18 1201 MR#: [id number] Acct: [id number] Name: [place] WATKINS Rep #: [id number] : 1995 23 From: Shu Collazo CNM [...] F Source: [place] NO DIFF 8:00 AM [facility] REPOSITORY Order Comment: Comments: Day #1 Reason [...] MPV 8.3 Performed By: #### L100.0500 #### [facility] [address] [facility] [place], [address] CBC-COMPLETE BLOOD CNT Collected: 08/29/2018 Status: F Source: [place] NO DIFF 10:45 AM [facility] REPOSITORY TYPE CODE TESTS RESULT OUT OF [...] Performed By: #### L100.0500, L300.3900, L300.4310 #### [facility] [address] [facility] [place], [address] PROTHROMBIN TIME W/INR Collected: 08/29/2018 Status: F Source: [place] 10:45 AM [facility] REPOSITORY TYPE CODE TESTS RESULT OUT OF RANGE REFERENCE UNITS LAB L300.4150 11.7-14.9 SECONDS Normal PROTIME 13.1 LAB L300.4200 Normal INR 1.0 Performed By: #### L100.0500, L300.3900, L300.4310 #### [facility] [address] [place], [address] PARTIAL THROMBOPLAST Collected: 08/29/2018 Status: F Source: [place] TIME 10:45 AM [facility] REPOSITORY TYPE CODE TESTS RESULT OUT OF RANGE REFERENCE UNITS LAB L300.4310 24.1-36.2 Seconds Normal PTT 26.2 Performed By: #### L100.0500, L300.3900, L300.4310 #### [facility] [address] [place], [address] OPERATIVE REPORT Observed: 08/29/2018 Status: F Source: [place] 9:21 AM [facility] REPOSITORY [facility] Medical Records Department [address] [facility] [place] [address] Operative Report 08/29/18 0913 MR#: [id number] Acct: [id number] Name: FLORIDA WATKINS Rep #: [id number] : 1995 23 From: Dasia Perkins PCP: Boo Millan MD Status: ADM IN Location: [id number] Delivery Classification: Scheduled Final CLAUS: 09/05/18 Gestational [...] reexamined and found to be hemostatic. Some anuj was placed over the uterine incision due to the denuded areas. The parietal peritoneum was reapproximated with running 3 vicryl suture. The fascia was closed with looped PDS suture in a running standard fashion. The subcutaneous tissue was examined AND any bleeding bovie cauterized. The subcutaneous tissue was reapproximated with plain gut suture. The skin was closed in a subcuticular fashion by the ONLINE FACILITATOR with me present in the labor and [...] 08/29/2018 Status: F Source: [place] 5:50 AM [facility] REPOSITORY TYPE CODE TESTS RESULT OUT OF [...] NORM C+C Performed By: #### L100.0100 #### [facility] [address] [facility] [address] [place], [place], [id number] TYPE AND SCREEN Collected: 08/29/2018 Status: F Source: [place] 5:50 AM [facility] REPOSITORY Order Comment: Reason for Type AND Screen/Red Cells: TYPE CODE TESTS RESULT OUT OF RANGE REFERENCE UNITS LAB B10.0800 A Normal BLOOD TYPE GEL POSITIVE LAB B100.4000 Normal Antibody NEGATIVE Screen Performed By: #### B101.7450 #### [facility] [address] [facility] 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 [id number]-bkmv-wivjq-bxt ( FORMULA-DHA) 28 mg- 800 mcg- 200 [...] informed consent signed. Declines version. PAT at [facility] scheduled. Yeast infection - continue terazol cream. Routine care Dasia Perkins MD PROGRESS Observed: 08/15/2018 Status: COMPLETED Source: [place] 10:43 AM [facility] [place] REPOSITORY [facility] ID: [id number] Author: Love Strauss Ma Service: (none) Author Type: (none) Type: Progress Notes Filed: 08/15/2018 11:49 AM Note Text: 22 year old female here for INACTIVATED INFLUENZA VACCINE. 7655-6935 Season Patient is identified by name and date of : Yes [] CONTRAINDICATIONS color enhanced section Age less than 6 months? No Allergy to eggs, chicken, chicken feathers, or chicken dander? No Allergy to thimerosal (a preservative) or formaldehyde, gelatin? No History of severe reaction to any vaccine component or a previous dose of influenza vaccination? No History of Guillain-Welling Syndrome within 6 weeks after a previous [...] sheet given? Yes See immunization activity in [facility] for details of immunizations adminstered today. Patient age: [age] year old For The 5228-2791 Flu Season 6-35 months old: Fluzone 0.25 [...] months time. Observed: 08/15/2018 Status: F Source: [place] FUNGUS SCREEN 3:11 AM [facility] REPOSITORY Sp. Request/Comment: - Swab Culture Result - Many Yeast, not Wade albicans --> ABNORMAL ALERT Performed By: #### FUNGSC #### [facility] [employer] [place], [place] [address] GROUP B STREP PCR Collected: 08/08/2018 Status: F Source: [place] 9:48 PM [facility] REPOSITORY TYPE CODE TESTS RESULT OUT OF REFERENCE UNITS RANGE LAB GBPCRT Negative for GROUP Group B B STREP PCR Streptococcus by PCR. Performed By: #### GBPCR #### [facility] [employer] [place], [place] [address] Observed: 08/08/2018 Status: F Source: [place] BACT/CAND VAG GRM ST 9:18 PM [facility] REPOSITORY Sp. Request/Comment: - Swab Smear Result - BACTERIAL VAGINOSIS RESULT: Stain results consistent with normal vaginal best. Many --> ABNORMAL ALERT Budding yeast --> ABNORMAL ALERT Many Polymorphonuclear leukocytes Performed By: #### BVCNSM #### [facility] [employer] [address] [place], [place] [address] CNCO Observed: 08/08/2018 Status: COMPLETED Source: [place] 12:00 AM [facility] [place] REPOSITORY Letter Text Dasia Perkins MD [facility] [address] [place], [place] [address] 08/08/2018 [place] Watkins [address] [place] [id number] CCF#: [id number] Dear [place], This letter is to confirm with you the dates and times of your upcoming surgery: Surgery is scheduled at [facility] on 08/29/18 at 7:30am Pre-Op at Dr. Perkins' Office is on 08/26/18 at 8:00am Pre-Admission Testing at [facility] is on 08/26/18 at 9:00am *They will [...] coverage. If you are self-pay and/or receive [facility] Financial Assistance, and are having surgery at [facility], please call them at [phone] to make financial arrangements. We will only call you if there is a problem. If you have any questions, please feel free to call us at the phone number above. We appreciate your confidence in choosing the [facility] for your medical care and we look forward to seeing you at your next appointment. Thank you, [facility] Observed: 07/25/2018 Status: F Source: [place] BACT VAG GRAM STAIN 3:25 PM [facility] REPOSITORY Sp. Request/Comment: - Swab Smear Result - BACTERIAL VAGINOSIS RESULT: Stain results consistent with normal vaginal best. Moderate --> ABNORMAL ALERT Yeast --> ABNORMAL ALERT Moderate Polymorphonuclear leukocytes Performed By: #### BVSTN #### [facility] [address] [place], [place] [address] PROGRESS Observed: 07/25/2018 Status: COMPLETED Source: [place] 2:59 PM [facility] REPOSITORY HNO ID: [id number] Author: Love Strauss Ma Service: (none) Author [...] severely ill: Yes Patient denies history of Guillain-Welling Syndrome (a severe paralytic illness): Yes Tdap Adacel injection was given without incident. See immunizations for details of immunizations administered today. VIS sheet provided: Yes Provider Dasia Perkins MD was present in office at time of injection. CNOV Observed: 07/08/2018 Status: COMPLETED Source: [place] 3:45 PM [facility] REPOSITORY Office Visit (WOOB) FLORIDA WATKINS ([id number]) 1995 F Date Time Provider Department 07/08/18 3:45 PM BRANDIN FLORIAN ([facility]) WOOB During your visit today, we recorded the following information about you: Blood pressure Weight 112/70 76.1 kg Ellie Freire Ma 07/08/2018 3:42 PM Addendum SEQUENTIAL SCREENINGS The [facility] offers sequential screenings for women who are [...] It will require an appointment with our building energy retrofit technician. This is not an ultrasound performed by a physician in our office during a routine visit. Calcium/Magnesium supplement. (Magnesium 250mg or 300mg) Ca/Ma supplement can be taken with dairy products, milk, cheese, etc Iron supplement is absorbed best with [place], Vitamin C (Oranges, Cranberry Juice, green leafy [...] the above symptoms, contact our office at [phone] and ask to speak with a nurse. After hours, you can call doctors registry at [phone] OR call [facility] at [phone] and ask to have the doctor non licensed nuclear plant operator paged. If you consider this an emergency, dial 4-4-0 or go to your nearest emergency department. NEED HELP? Are you dealing with a violent or abusive relationship? Are you a victim of rape or sexual assult? Call [facility] ([place]) 24 hour Crisis Hotline: 805.983.1775 or 690-375-0095. MANUAL Your Guide to a Healthy manual is now on-line. Visit [email or web address] to download your free copy Referring Provider: BRANDIN FLORIAN ([facility]) [[id number]] Allergies As of Date: 07/08/2018 Noted Allergy Reaction SEASONAL ALLERGIES 04/28/2009 Date Reviewed: 07/08/2018 Reviewed by: [facility]in [facility] Hospital[facility]rist[facility] Florian - Fully Assessed Reason for Visit: Care [86] Primary Visit Diagnosis:Encounter for supervision of normal first in third trimester [Z34.03] Other Visit Diagnosis:31 weeks gestation of [Z3A.31] Order(s):URINE OB DIP B/O [[id number]] Order #: [id number] Prescriptions as of 07/08/2018 Sig: FERROUS SULFATE [...] instructions from your clinician: SEQUENTIAL SCREENINGS The [facility] offers sequential screenings for women who are [...] It will require an appointment with our building energy retrofit technician. This is not an ultrasound performed by a physician in our office during a routine visit. Calcium/Magnesium supplement. (Magnesium 250mg or 300mg) Ca/Ma supplement can be taken with dairy products, milk, cheese, etc Iron supplement is absorbed best with [place], Vitamin C (Oranges, Cranberry Juice, green leafy [...] the above symptoms, contact our office at [phone] and ask to speak with a nurse. After hours, you can call doctors registry at [phone] OR call [facility] at [phone] and ask to have the doctor non licensed nuclear plant operator paged. If you consider this an emergency, dial 8-1-0 or go to your nearest emergency department. NEED HELP? Are you dealing with a violent or abusive relationship? Are you a victim of rape or sexual assult? Call [facility] ([place]) 24 hour Crisis Hotline: 140.317.3231 or 403-255-8067. MANUAL Your Guide to a Healthy manual is now on-line. Visit [email or web address] to download your free copy Disposition: Return in about 2 weeks (around 07/22/2018), or if symptoms worsen or fail to improve. Follow-up and Disposition History Recorded Encounter Status:Closed by BRANDIN FLORIAN CNM on 07/08/18 CBC Collected: 06/17/2018 Status: F Source: [place] 3:41 PM [facility] REPOSITORY TYPE [...] nRBC <0.01 Performed By: #### CBC #### [place] [address] 50G, 1HR GEST. Collected: 06/17/2018 Status: F Source: [place] GSCRN 3:41 PM [facility] REPOSITORY TYPE CODE TESTS RESULT OUT OF REFERENCE UNITS RANGE LAB GLUP 74-134 mg/dL Glucose 117 Screen, Preg Result Comment: [place] Congress of Obstetricians and Gynecologists (Juarez/Stephanie) guidelines state a gestational diabetes mellitus positive screen is made, in women not previously diagnosed with overt diabetes, when the 1 hr plasma glucose level is equal to or above 140 mg/dL. The [facility] Human Services Assistant and [facility] recommends a 135 mg/dL cutoff. Performed By: #### GLTGST #### [place] [address] GC/CHLAMYDIA AMPLIF Collected: 06/11/2018 Status: F Source: [place] 3:45 PM [facility] REPOSITORY TYPE CODE TESTS RESULT OUT OF REFERENCE UNITS RANGE LAB GCCTSR GC/Chlam Amp [employer] Source LAB GCAMPL GC Negative Amplification for Neisseria gonorrhoeae by amplification. LAB CLAMPL Chlamydia Negative Amplif for Chlamydia trachomatis by amplification. Performed By: #### GCCT #### [place] [address] Observed: 06/11/2018 Status: F Source: [place] BACT/CAND VAG GRM ST 3:45 PM [facility] REPOSITORY Sp. Request/Comment: - Swab Smear Result - BACTERIAL VAGINOSIS RESULT: Stain results consistent with normal vaginal best. Moderate --> ABNORMAL ALERT Budding yeast --> ABNORMAL ALERT Rare Polymorphonuclear leukocytes Performed By: #### BVCNSM #### [address], [place] [address] FIBRONECTIN Collected: 06/11/2018 Status: F Source: [place] 3:45 PM [facility] REPOSITORY TYPE CODE TESTS RESULT OUT OF RANGE REFERENCE UNITS LAB L205.0100 Normal fFN Negative Performed By: #### L205.0000 #### [facility] [address] [place], [place], [address] Observed: 05/27/2018 Status: F Source: [place] BACT/CAND VAG GRM ST 1:43 AM [facility] REPOSITORY Sp. Request/Comment: - Swab Smear Result - BACTERIAL VAGINOSIS RESULT: Stain results consistent with normal vaginal best. Many --> ABNORMAL ALERT Budding yeast --> ABNORMAL ALERT Many Polymorphonuclear leukocytes Performed By: #### BVCNSM #### [facility] [employer] [facility] [place] [id number] Observed: 05/09/2018 Status: F Source: [place] URINE CULTURE 11:35 AM [facility] REPOSITORY Sp. Request/Comment: - Specimen received in preservative Culture Result - 10,000 - <50,000 CFU/ml Normal urogenital best Performed By: #### URCUL #### [facility] [employer] [address] [place] [address] PROGRESS Observed: 05/09/2018 Status: COMPLETED Source: [place] 10:48 AM [facility] REPOSITORY HNO ID: [id number] Author: Lamar Young Service: (none) Author Type: [...] Take 1 tablet by mouth twice daily. [id number]-xhip-cooiw-qdh ( FORMULA-DHA) 28 mg- 800 mcg- 200 [...] prot, nitrates, blood -I encouraged f/u with regional dedicated truck driver as they have been treating her for [...] Patient agreeable to treatment plan. Lamar Young APRN.ENVIRONMENTAL ENGINEER SCIENTIST CNOV Observed: 05/09/2018 Status: COMPLETED Source: [place] 10:30 AM [facility] REPOSITORY Office Visit (WSTR) FLOR[place] WATKINS ([id number]) 1995 F Date Time Provider Department 05/09/18 [...] Take 1 tablet by mouth twice daily. [id number]-chze-osaow-bwl ( FORMULA-DHA) 28 mg- 800 mcg- 200 [...] prot, nitrates, blood -I encouraged f/u with regional dedicated truck driver as they have been treating her for [...] even if the symptoms go away. 2. Dngo-shy-zeunqur pain medication may be taken or other [...] days.Disp: 20 tabletRfl: 0 UA DIP B/O [[id number]] Order #: [id number] [facility] Order #: [id number] Prescriptions as of 05/09/2018 Sig: AMOXICILLIN 875 [...] even if the symptoms go away. 2. Eyny-kli-nrzfxzd pain medication may be taken or other [...] 05/09/18 WILMA Observed: 05/09/2018 Status: COMPLETED Source: [place] 12:00 AM [facility] REPOSITORY Telephone (WOOB) FL[place] WATKINS ([id number]) 1995 F Date Time Provider Department 05/09/18 [...] 04/28/2009 Date Reviewed: 05/09/2018 Reviewed by: Lamar (Industrial Custodian) - Fully Assessed Reason for Visit: Question [6866] Order(s):terconazole (TERAZOL 7) 0.4 % vaginal creamUse [...] FOR 7 DAYS. Encounter Status:Closed by BRANDIN FLORINA CNM on 05/09/18 Observed: 04/28/2018 Status: F Source: [place] BACT/CAND VAG GRM ST 2:05 PM [facility] REPOSITORY Sp. Request/Comment: - Swab Smear Result - BACTERIAL VAGINOSIS RESULT: Stain results consistent with normal vaginal best. Many --> ABNORMAL ALERT Yeast --> ABNORMAL ALERT Many Polymorphonuclear leukocytes Performed By: #### BVCNSM #### [place] [phone] Observed: 04/28/2018 Status: F Source: [place] URINE CULTURE 2:05 PM [facility] REPOSITORY Sp. Request/Comment: - Specimen received in preservative Culture Result - No growth (<1,000 CFU/ml) Performed By: #### URCUL #### [place] [address] Observed: 04/17/2018 Status: F Source: [place] URINE CULTURE 3:45 PM [facility] REPOSITORY Sp. Request/Comment: - Specimen received in preservative Culture Result - No growth (<1,000 CFU/ml) Performed By: #### URCUL #### [place] [phone] Observed: 04/16/2018 Status: F Source: [place] [employer] VAG GRAM STAIN 3:30 PM [facility] REPOSITORY Smear Result - BACTERIAL VAGINOSIS RESULT: Stain results consistent with normal vaginal best. Many --> ABNORMAL ALERT Yeast --> ABNORMAL ALERT Moderate Polymorphonuclear leukocytes Performed By: #### BVSTN #### [place] [address] PROGRESS Observed: 04/15/2018 Status: COMPLETED Source: [place] 3:41 PM [facility] REPOSITORY HNO ID: [id number] Author: Kaycee Vasquez Service: (none) Author Type: [...] GC/CHLAMYDIA AMPLIF Collected: 04/15/2018 Status: F Source: [place] 3:30 PM [facility] REPOSITORY TYPE CODE TESTS RESULT OUT OF REFERENCE UNITS RANGE LAB GCCTSR GC/Chlam Amp [employer] Source LAB GCAMPL GC Negative Amplification for Neisseria gonorrhoeae by amplification. LAB CLAMPL Chlamydia Negative Amplif for Chlamydia trachomatis by amplification. Performed By: #### GCCT #### [facility] [place] [address] GC/CHLAMYDIA AMPLIF Collected: 04/08/2018 Status: F Source: [place] 2:15 PM [facility] REPOSITORY TYPE CODE TESTS RESULT OUT OF REFERENCE UNITS RANGE LAB GCCTSR GC/Chlam Amp [employer] Source LAB GCAMPL GC Negative Amplification for Neisseria gonorrhoeae by amplification. LAB CLAMPL Chlamydia Negative Amplif for Chlamydia trachomatis by amplification. Performed By: #### GCCT #### [facility] [employer] [place] [address] Observed: 04/08/2018 Status: F Source: [place] URINE CULTURE 2:09 PM [facility] REPOSITORY Sp. Request/Comment: - Specimen received in preservative Culture Result - <10,000 CFU/ml Enterococcus faecalis --> ABNORMAL ALERT Cephalosporins, clindamycin, and TMP-SMX are not effective for the treatment of enterococcal infections. --> ABNORMAL AL ERT Insignificant colony count. No further workup. --> ABNORMAL ALERT 10,000 - <50,000 CFU/ml Normal urogenital best Performed By: #### URCUL #### [place] [address] [place] [address] CNOV Observed: 04/08/2018 Status: COMPLETED Source: [place] 2:00 PM [facility] REPOSITORY Office Visit (WOOB) FL[place] WATKINS ([id number]) 1995 F Date Time Provider Department 04/08/18 2:00 PM SHU COLLAZO ([facility]) WOOB During your visit today, we recorded the following information about you: Blood pressure Weight 116/66 69.4 kg Shu Collazo APRN.CNM 04/08/2018 4:20 PM Signed Log Feeder offered: Patient declines. 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 History Occupation Employer Comment [employer] Social History Main Topics Smoking status: Former [...] Take 1 tablet by mouth twice daily. ykl024-euzi-pxtth-rje ( FORMULA-DHA) 28 mg- 800 mcg- 200 [...] external genitalia normal, normal Bartholin's glands, urethra, [place]'s glands, no vulvar lesions, no cervical lesions, [...] (no units) Date Value 04/08/2018 Neg Specific [place], Ur (no units) Date Value 04/08/2018 1.015 [...] second trimester [O26.892, N89.8] Order(s):UA DIP B/O [[id number]] Order #: [id number] GC/CHLAMYDIA DNA DET [SQGCCAMP] Order #: [id number]. #:[id number] TRICHOMONAS PREP [SQTRICHO] Order #: [id number]. #:[id number] BACT/WADE VAG GRAM STAIN [SQBVCNSM] Order #: [id number] FUTURE URINE CULTURE [SQURCUL] Order #: [id number]. #:[id number] BACT/WADE VAG GRAM STAIN [SQBVCNSM] Order #: [id number]. #:[id number] terconazole (TERAZOL 7) 0.4 % vaginal creamUse [...] 04/08/18 PROGRESS Observed: 04/08/2018 Status: COMPLETED Source: [place] 1:53 PM [facility] REPOSITORY HNO ID: [id number] Author: Shu Collazo Service: (none) Author Type: Turbine Inspector Type: Progress Notes Filed: 04/08/2018 4:20 PM Note Text: Log Feeder offered: Patient declines. 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 eef847-ghdg-qujto-hei ( FORMULA-DHA) 28 mg- 800 mcg- 200 [...] external genitalia normal, normal Bartholin's glands, urethra, [place]'s glands, no vulvar lesions, no cervical lesions, [...] (no units) Date Value 04/08/2018 Neg Specific [place], Ur (no units) Date Value 04/08/2018 1.015 [...] Collazo APRN.CNM Observed: 04/08/2018 Status: F Source: [place] BACT/CAND VAG [facility] 12:50 AM CLINIC MAIN [facility]AMP[facility] REPOSITORY Sp. Request/Comment: - Swab Smear Result - BACTERIAL VAGINOSIS RESULT: Stain results consistent with normal vaginal best. Many --> ABNORMAL ALERT Yeast --> ABNORMAL ALERT Many Polymorphonuclear leukocytes Many Mononuclear cells Performed By: #### BVCNSM #### [place] [address] [place] [address] Observed: 04/08/2018 Status: F Source: [place] TRICHOMONAS PREP 12:49 AM [facility] REPOSITORY Sp. Request/Comment: - Swab Smear Result - Negative for Trichomonas vaginalis antigen This test was developed and its performance characteristics determined by [facility]'s [facility] [place] ([facility]). It has not been cleared or approved by the FDA. [facility] is regulated under CLIA as qualified to perform high-complexity testing. This test is used for clinical purposes. It should not be regarded as investigational or for research. Performed By: #### TRICHO #### [place] [address] TYPE AND SCR,PRENATL Collected: 03/27/2018 Status: F Source: [place] 4:26 PM [facility] REPOSITORY TYPE CODE TESTS RESULT OUT OF REFERENCE UNITS RANGE LAB %ABR A ABO/RH(D) POSITIVE LAB % Antibody NEG Screen Performed By: #### TSPN #### [place] [address] CBC Collected: 03/27/2018 Status: F Source: [place] 4:25 PM [facility] REPOSITORY TYPE CODE TESTS RESULT OUT [...] #### CBC, SYPHGX, HBSAG, RUBIGG, HIV12C #### [place] [phone] SYPHILIS IGG WITH Collected: 03/27/2018 Status: F Source: [facility] 4:25 PM [facility] REPOSITORY TYPE CODE TESTS RESULT OUT [...] #### CBC, SYPHGX, HBSAG, RUBIGG, HIV12C #### [place] [phone] HEPATITIS B SURF. AG Collected: 03/27/2018 Status: F Source: [place] [address] [place] [address] REPOSITORY TYPE CODE TESTS RESULT OUT OF REFERENCE UNITS RANGE LAB HBSAG Negative Hepatitis B Negative Surf. Ag Performed By: #### CBC, SYPHGX, HBSAG, RUBIGG, HIV12C #### [place] [phone] RUBELLA IGG ANTIBODY Collected: 03/27/2018 Status: F Source: [place] [address] [place] [address] REPOSITORY TYPE CODE TESTS RESULT OUT OF [...] #### CBC, SYPHGX, HBSAG, RUBIGG, HIV12C #### [facility] [address] [place], [place] [address] HIV 12 COMBO (AG/AB) Collected: 03/27/2018 Status: F Source: [place] 4:25 PM [facility] REPOSITORY TYPE CODE TESTS RESULT OUT OF REFERENCE UNITS RANGE LAB HVAGAB Non Reactive HIV Non Reactive 12 Ag/Ab Result Comment: (NOTE) HIV Information: [place] Rev. Code 3701.243(E): This information has been [...] #### CBC, SYPHGX, HBSAG, RUBIGG, HIV12C #### [place] [address] [place] [address] Observed: 03/27/2018 Status: F Source: [place] BACT/CAND VAG GRM ST 4:00 PM [facility] REPOSITORY Sp. Request/Comment: - Swab Smear Result - BACTERIAL VAGINOSIS RESULT: Stain results consistent with normal vaginal best. Many --> ABNORMAL ALERT Yeast --> ABNORMAL ALERT Many Polymorphonuclear leukocytes Performed By: #### BVCNSM #### [place] [address] [place] [id number] PROGRESS Observed: 03/17/2018 Status: COMPLETED Source: [place] 11:02 AM [facility] REPOSITORY HNO ID: [id number] Author: Jelani Laguerre) Chacho Service: (none) Author [...] after the event. She did go to [facility] and was diagnosed with a [...] (max=22) Symptom severity score (add all together. Ffa=428) Do the sympyoms get worse with physical [...] Take 1 tablet by mouth twice daily. wfo946-zfcw-bgxvn-ylz ( FORMULA-DHA) 28 mg- 800 mcg- 200 mg cap Take 1 capsule by mouth once daily. No current facility-administered medications on file prior to visit. 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 Jelani Delgado APRN.ENVIRONMENTAL ENGINEER SCIENTIST CNOV Observed: 03/17/2018 Status: COMPLETED Source: [place] 11:00 AM [facility] REPOSITORY Office Visit (FAMPWS) [place] WATKINS ([id number]) 1995 F Date Time Provider Department 03/17/18 [...] after the event. She did go to [facility] and was diagnosed with a [...] (max=22) Symptom severity score (add all together. Dkj=486) Do the sympyoms get worse with physical [...] Take 1 tablet by mouth twice daily. lcw720-tobe-unrur-dag ( FORMULA-DHA) 28 mg- 800 mcg- 200 mg cap Take 1 capsule by mouth once daily. No current facility-administered medications on file prior to visit. Social History Social History Marital status: Single Spouse name: Years of education: 12 Number of children: 0 Occupational History Occupation Employer Comment [employer] Social History Main Topics Smoking status: Former [...] 03/17/18 PROGRESS Observed: 02/27/2018 Status: COMPLETED Source: [place] 3:20 PM [facility] REPOSITORY HNO ID: [id number] Author: Kalyani Brown Service: (none) Author Type: [...] ALLERGIES Seasonal Allergies MEDICATIONS Current Outpatient Prescriptions: sxd659-uflf-jlayh-xnj ( FORMULA-DHA) 28 mg- 800 mcg- 200 mg cap Take 1 capsule by mouth once daily. No current facility-administered medications for this visit. Medications and allergies reviewed by this provider. 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 No current facility-administered medications for this visit. Medications and allergies reviewed by this provider. 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 3) Use as is, or push the mixture through a mesh strainer to get a smoother syrup. 4) Keep in the refrigerator and take as needed. Note: Do not give anything with honey to children under 1 year old. If you have a persistent cough, seek medical attention. Recipe slightly adapted from [email or web address] Encouraged humidifier, increased water intake, and nasal saline. Ok to use the medications on the print out given safe in if needed. Start Pepcid AC and follow up with NURSING SECRETARY or PCP as needed Referring Provider: SELF [...] Order(s):ECG COMPLETE W INTERPRETATION [ECG01] Order #: [id number] FUTURE famotidine (PEPCID AC) 10 mg tabletTake [...] healthy 2) Blend everything up in a engineer station mainline or food and beverage controller until smooth. 3) Use as is, or push the mixture through a mesh strainer to get a smoother syrup. 4) Keep in the refrigerator and take as needed. Note: Do not give anything with honey to children under 1 year old. If you have a persistent cough, seek medical attention. Recipe slightly adapted from [email or web address] Encouraged humidifier, increased water intake, and nasal saline. Ok to use the medications on the print out given safe in if needed. Start Pepcid AC and follow up with NURSING SECRETARY or PCP as needed Prescriptions ordered this encounter Disp Refills Start End FAMOTIDINE 10 MG TABLET 30 t* 3 02/27/2018 Route: ORAL Sig: Take 1 tablet by mouth twice daily. Encounter Status:Closed by KALYANI BROWN on 02/27/18 Observed: 02/06/2018 Status: F Source: [place] BACT/CAND VAG GRM ST 5:20 PM [facility] REPOSITORY Sp. Request/Comment: - Swab Smear Result - BACTERIAL VAGINOSIS RESULT: Stain results consistent with normal vaginal best. Many --> ABNORMAL ALERT Yeast --> ABNORMAL ALERT Few Polymorphonuclear leukocytes Performed By: #### BVCNSM #### [facility] [address] [place], [place] [address] PROGRESS Observed: 02/05/2018 Status: COMPLETED Source: [place] 3:25 PM [facility] REPOSITORY HNO ID: [id number] Author: Shu Collazo Service: (none) Author Type: Turbine Inspector Type: Progress Notes Filed: 02/05/2018 4:45 PM Note Text: Log Feeder offered: Patient declines. 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 [employer] Social History Main Topics Smoking status: [...] and fiance 1 dog Current Outpatient Prescriptions: Dwnsqati-Jo-Ofw-Fe-FA ( VITAMIN) tab Take 1 tablet by [...] external genitalia normal, normal Bartholin's glands, urethra, Parkside's glands, no vulvar lesions, no cervical lesions, [...] STORMY Elizabeth Observed: 02/05/2018 Status: COMPLETED Source: [place] 3:15 PM [facility] REPOSITORY Office Visit (WOOB) [place] WATKINS ([id number]) 1995 F Date Time Provider Department 02/05/18 3:15 PM SHU COLLAZO) MAYRA During your visit today, we recorded the following information about you: Blood pressure Weight 120/60 65.8 kg Shanta Braxton Silvia 02/05/2018 3:21 PM Addendum Cruz probiotic SEQUENTIAL SCREENINGS The [facility] offers sequential screenings for women who are [...] It will require an appointment with our building energy retrofit technician. This is not an ultrasound performed [...] the above symptoms, contact our office at [phone] and ask to speak with a nurse. After hours, you can call doctors registry at [phone] OR call [facility] at [phone] and ask to have the doctor non licensed nuclear plant operator paged. If you consider this an emergency, dial 9-5 or go to your nearest emergency department. NEED HELP? Are you dealing with a violent or abusive relationship? Are you a victim of rape or sexual assult? Call [facility] ([place]) 24 hour Crisis Hotline: 675.259.8075 or 882-365-2003. MANUAL Your Guide to a Healthy manual is now on-line. Visit [email or web address] to download your free copy Shu Collazo CNM 02/05/2018 4:45 PM Signed Log Feeder offered: Patient declines. 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 [employer] Social History Main Topics Smoking status: Former [...] and fiance 1 dog Current Outpatient Prescriptions: Bvfqitlj-Bv-Gfc-Fe-FA ( VITAMIN) tab Take 1 tablet by [...] external genitalia normal, normal Bartholin's glands, urethra, [place]ide's glands, no vulvar lesions, no cervical lesions, [...] Vaginal discharge [N89.8] Order(s):URINE OB DIP B/O [5166234] Order #: [id number] UA DIP B/O [[id number]] Order #: [id number] vit 12-gnop-ubeut-dha (PRENATE MINI, FERR ASP GLYCIN,) 18-1-350 mg capTake 1 tablet by mouth once daily.Disp: 30 tabletRfl: 11 BACT/WADE VAG GRAM STAIN [SQBVCNSM] Order #: [id number] FUTURE Prescriptions as of 02/05/2018 Sig: VIT [...] your clinician: Cruz lakhani SEQUENTIAL SCREENINGS The [facility] offers sequential screenings for women who are [...] It will require an appointment with our building energy retrofit technician. This is not an ultrasound performed [...] the above symptoms, contact our office at [phone] and ask to speak with a nurse. After hours, you can call doctors registry at [phone] OR call [facility] at [phone] and ask to have the doctor non licensed nuclear plant operator paged. If you consider this an emergency, dial 9-1-1 or go to your nearest emergency department. NEED HELP? Are you dealing with a violent or abusive relationship? Are you a victim of rape or sexual assult? Call [facility] 24 hour Crisis Hotline: 416.912.7306 or 730-916-6839. MANUAL Your Guide to a Healthy manual is now on-line. Visit [email or web address] to download your free copy Prescriptions ordered this encounter Disp Refills Start End VIT 87-IRON CARB,ASP 18 MG-* 30 t* 11 02/05/2018 Route: ORAL Sig: Take 1 tablet by mouth once daily. Medications Discontinued During This Encounter Uizznaox-Gx-Vjy-Fe-FA (PREN* 02/05/2018 Class: Historical Med Route: ORAL Sig: Take 1 tablet by mouth. Disc: Changing Therapy/Dosage Form Disposition: Return for as scheduled. Follow-up and Disposition History Recorded Encounter Status:Closed by SHU COLLAZO on 02/05/18 TOXICOLOGY SCREEN,UR Collected: 01/28/2018 Status: F Source: [place] 3:00 PM [facility] REPOSITORY TYPE [...] the same speci men through Client Services ([phone]) if contacted within 48 hours of initial testing. [1]Substance Abuse and Mental Health Services Administration (2012). Clinical Drug Testing in Primary Care Technical Assistance Publication Series 32. Department of Health and Human Services, [place], p.10. These tests were developed and their performance characteristics determined by [facility] [place] ([facility]). They have not been cleared or a pproved by the FDA. [facility] is regulated under CLIA as qualified to perform high complexity testing. These tests are used for clinical purposes. They should not be regarded as investigational or for research. Performed By: #### UTOX2 #### [place] [address] Observed: 01/28/2018 Status: F Source: [place] VAGINAL SMR [place] 12:23 PM [facility] REPOSITORY Sp. Request/Comment: - Swab Smear Result - BACTERIAL VAGINOSIS RESULT: Stain results consistent with normal vaginal best. Many --> ABNORMAL ALERT Yeast --> ABNORMAL ALERT Many Polymorphonuclear leukocytes Performed By: #### CANSTN #### [place] [id number] GC/CHLAMYDIA AMPLIF Collected: 01/28/2018 Status: F Source: [place] 10:50 AM [facility] REPOSITORY TYPE CODE TESTS RESULT OUT OF REFERENCE UNITS RANGE LAB GCCTSR GC/Chlam Amp Vaginal Source LAB GCAMPL GC Negative Amplification for Neisseria gonorrhoeae by amplification. LAB CLAMPL Chlamydia Negative Amplif for Chlamydia trachomatis by amplification. 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 Request/Comment: - Specimen received in preservative Culture Result - 10,000 - <50,000 CFU/ml Normal urogenital best Performed By: #### URCUL #### [facility] [address] [place], [place] [address] POST VOID RESIDUAL Observed: 01/07/2018 Status: F Source: [place] 10:42 AM [facility] REPOSITORY [facility] Imaging Services [address] [place] [address] Post Void Residual Bladder MR#: [id number] Acct: [id number] Name: [place] WATKINS Rep #: [id number] : 1995 F 22 From: Crispin Beth MD PCP: Boo Millan MD Status: REG CLI Study: Post Void Residual Bladder Date of Exam: 01/07/18 Exam# [id number] Ordering Dr: Eugene Caldwell MD STUDY: ULTRASOUND [...] Crispin Beth MD at 16:04 EST Tel [phone], Service support , CC: Eugene Caldwell MD; Boo Millan MD Mechanotherapist: Signed HCG, QUANTITATIVE BL Collected: 01/07/2018 Status: F Source: [place] 9:50 AM [facility] REPOSITORY TYPE CODE TESTS RESULT OUT OF REFERENCE UNITS RANGE LAB HCGQT <5.0 mU/mL HCG, High Quantitative Bl 9550.0 Result Comment: QUANTITATIVE HCG NORMAL RANGES Weeks of Gestation (Weeks Since LMP) 3 Weeks (5.8-71.2 mIU/mL) 4 Weeks (9.5-750 mIU/mL) 5 Weeks (217-7138 mIU/mL) 6 Weeks (158-51908 mIU/mL) 7 Weeks (3697-578862 mIU/mL) 8 Weeks (31108-766068 mIU/mL) 9 Weeks (31832-261363 mIU/mL) 10 Weeks (30531-574421 mIU/mL) 12 Weeks (67335-621244 mIU/mL) Referenced to 4th IS of NIBS Performed By: #### HCGQT #### [facility] [address] [place], [place] [address] HCG, QUANTITATIVE BL Collected: 01/03/2018 Status: F Source: [place] 3:02 PM [facility] REPOSITORY TYPE CODE TESTS RESULT OUT OF REFERENCE UNITS RANGE LAB HCGQT <5.0 mU/mL HCG, High Quantitative Bl 3292.0 Result Comment: QUANTITATIVE HCG NORMAL RANGES Weeks of Gestation (Weeks Since LMP) 3 Weeks (5.8-71.2 mIU/mL) 4 Weeks (9.5-750 mIU/mL) 5 Weeks (217-7138 mIU/mL) 6 Weeks (158-13678 mIU/mL) 7 Weeks (3697-489094 mIU/mL) 8 Weeks (04962-805769 mIU/mL) 9 Weeks (97626-856239 mIU/mL) 10 Weeks (86453-230415 mIU/mL) 12 Weeks (68673-525045 mIU/mL) Referenced to 4th IS of NIBS Performed By: #### HCGQT #### [facility] [address] [place], [place] [address] ALLERGIES ALLERGIES DATE TYPE / CODE NAME / CODE REACTION SEVERITY SOURCE 11/08/2018 Drug No Known Unknown [facility] Allergy/416 Allergies/H62757 [facility] 513876(SNOM 0388(RXNORM) Repository ED CT) 04/28/2009 Environ/420 SEASONAL [facility] 831503(SNOM ALLERGIES [facility] [place] ED CT) Repository ENCOUNTERS ENCOUNTERS ADMIT/DISCHARGE ACCOUNT ADMITTING ENCOUNTER LOCATION SOURCE NUMBER CLASS 12/05/2018/12/08/19 [id number] Ambulatory [address] Repository 11/14/2018/11/16/20 [id number] Ambulatory [address] Repository 11/12/2018/11/12/20 [id number] Ambulatory [address] Repository 11/08/2018/11/08/20 [id number] Emergency [place] [address] [place] [address] ing:ED Repository 11/07/2018 [id number] Ambulatory General acute hospital ing:LABSPEC Repository 11/07/2018/11/08/20 [id number] Ambulatory [place] [facility] [place] Repository 11/07/2018/11/08/20 [id number] Ambulatory [place] [facility] [place] Repository 11/07/2018/11/07/20 [id number] Ambulatory [place] [facility] [place] Repository 11/07/2018/11/10/20 [id number] Ambulatory [place] [facility] [place] Repository 10/15/2018/10/17/20 [id number] Ambulatory [place] [facility] [place] Repository 10/10/2018/10/13/20 [id number] Ambulatory [place] [facility] [place] Repository 09/11/2018/09/12/20 [id number] Ambulatory [place] [facility] [place] Repository 09/03/2018/09/04/20 [id number] Ambulatory [address] [place] Repository 09/02/2018/09/02/20 [id number] Ambulatory [address] ing:WPOUTRoom Repository : WPOLRM 08/29/2018/09/01/20 [id number] Dasia Perkins Inpatient [address] ing:WPRoom: Repository NW391Ywp: 1 08/26/2018/08/28/20 [id number] Ambulatory [address] [place] Repository 08/19/2018/08/20/20 [id number] Ambulatory [address] [place] Repository 08/15/2018/08/18/20 [id number] Ambulatory [place] [facility] [place] Repository 08/08/2018/08/11/20 [id number] Ambulatory [place] [facility] [place] Repository 07/25/2018/07/29/20 [id number] Ambulatory [place] [facility] [place] Repository 07/11/2018/07/14/20 [id number] Ambulatory [place] [facility] [place] Repository 07/08/2018/07/09/20 [id number] Ambulatory [address] [place] Repository 06/17/2018/06/17/20 [id number] Ambulatory [place] [facility] [place] Repository 06/17/2018/06/18/20 [id number] Ambulatory [facility] [place] Repository 06/11/2018 [id number] Ambulatory General acute hospital ing:LABSPEC Repository 06/11/2018/06/12/20 [id number] Ambulatory [facility] [place] Repository 05/27/2018/05/29/20 [id number] Ambulatory [facility] [place] Repository 05/09/2018/05/12/20 [id number] Ambulatory [facility] [place] Repository 04/28/2018/04/28/20 [id number] Ambulatory [facility] [place] Repository 04/17/2018/04/18/20 [id number] Ambulatory [facility] [place] Repository 04/15/2018/04/17/20 [id number] Ambulatory [facility] [place] Repository 04/15/2018/04/17/20 [id number] Ambulatory [facility] [place] Repository 04/08/2018/04/10/20 [id number] Ambulatory [facility] [place] Repository 03/27/2018 [id number] [facility] [place] Repository 03/27/2018/03/27/20 [id number] Ambulatory [facility] [place] Repository 03/17/2018/03/18/20 [id number] Ambulatory [facility] [place] Repository 02/27/2018/02/28/20 [id number] Ambulatory [facility] [place] Repository 02/27/2018/02/29/20 [id number] Ambulatory [facility] [place] Repository 02/25/2018/02/28/20 [id number] [facility]ulatory [facility] [place] Repository 02/05/2018/02/08/20 [id number] Ambulatory [facility] [place] Repository 01/28/2018/01/29/20 [id number] [facility]ulatory [facility] [place] Repository 01/16/2018/01/24/20 [id number] [facility]ulatory [facility] [place] Repository 01/07/2018 [id number] Ambulatory General acute hospital ing:USHP Repository 01/07/2018/01/07/20 [id number] Ambulatory [facility] [place] Repository 01/03/2018/01/03/20 [id number] Ambulatory [place] [facility] [place] Repository PAYERS PAYERS ENCOUNTER GUARANTOR PAYER SUBSCRIBER SOURCE 11/08/2018 [place] Jeter Primary BOO T CHASEDOB: [place] [id number] Insurance:CIGNAPolicy [id number] Community MICHELLE DRLOT Number: [address] [id number] Repository [address]Umx: (330) Date:3849-49-95[phone] () [id number], [place] [address]MT: 11/08/2018 Secondary NOT GIVENUNK [place] Insurance:SELF PAY [facility]: Effective Repository Date:2018-11-08 11/07/2018 [place] Jeter Primary BOO T CHASEDOB: [place] [id number] Insurance:CIGNAPolicy [id number] Community MICHELLE DRLOT Number: [address] [id number] Repository [address]Shj: (330) Date:4877-90-14SU [phone] () [id number], [place] [address]IP: 11/07/2018 Secondary NOT GIVENUNK [place] Insurance:SELF PAY Community [facility] Number: Effective Repository Date:2018-11-07 09/02/2018 [place] Jeter Primary BOO T CHASEDOB: [place] [id number] Insurance:CIGNAPolicy [id number] Community MICHELLE DRLOT Number: [address] [id number] Repository [address]Oxl: (330) Date:5267-04-00DQ [phone] () [id number], [place] [address]EO: 09/02/2018 Secondary NOT GIVENUNK [place] Insurance:SELF PAY [facility] Number: Effective Repository Date:2018-09-02 08/29/2018 [place] A Primary BOO CHASEDOB: [place] [id number] Insurance:CIGNAPolicy [id number] Community MICHELLE DRLOT Number: [address] [id number] Repository [address]Gud: (330) Date:1303-51-54AD [phone] () 236[address]BEGAEUSQCLP, [place] [address]NA: 08/29/2018 Secondary NOT GIVENUNK [place] Insurance:SELF PAY [facility] Number: Effective Repository Date:2018-07-30 06/11/2018 [place] Primary BOO CHASEDOB: [place] [address] Insurance:CIGNAPolicy [id number] [facility] BOX Number: [address] [id number] Repository [address]Tek: (330) Date:1653-39-31YE [phone] () [id number], [place] [address]EA: 06/11/2018 Secondary NOT GIVENUNK [place] Insurance:SELF PAY [facility] Number: Effective Repository Date:2018-06-11 01/07/2018 [facility] BOO CHASEDOB: [place] [address] Insurance:CIGNAPolicy [id number] [facility] BOX Number: [address] [id number] Repository [address]Npp: (330) Date:8932-55-25GF [phone] () [id number], [place] [address]WW: 01/07/2018 Secondary NOT GIVENUNK [place] Insurance:SELF PAY [facility] Number: Effective Repository Date:2017-12-26
== END 2018-11-08 09:58 | disposition home or self-care (01) ==
LOC: ED 08:07
PROVIDERS: Emergency Provider Emergency Medicine; Family Provider Family Medicine; PCP Family Medicine
DX: R06.00 Dyspnea, unspecified (principal); R19.7 Diarrhea, unspecified; R05 Cough; R07.9 Chest pain, unspecified; R00.2 Palpitations
CPT/HCPCS: 71275; 80048; 84484; 85025; 93005; 99283; J7030; Q9967; A4216

== ENCOUNTER 2022-10-10 11:56 | Emergency (ER) | payer OTHER, SELFPAY ==
[2022-10-10 11:57] VITALS: BP 149/82; PULSE 82; RESP 16; TEMP 36.6; O2SAT 99; BMI 34.1
--- NOTE | 2022-10-10 12:31 | EDS_ITS ---
HPI History of Present Illness Chief Complaint: Dizziness Narrative Narrative: 27-year-old female presenting with dizziness. She states has had this for about a year. She has associated symptoms of nausea as well. She states is worse with standing and moving. Patient states today she was feeling dizzy but was able to get herself up and drive her daughter to school but just was not feeling right. She states she is taking a weight loss medicine currently, and is concerned this could be worsening her symptoms. She states he also drank a much of coffee yesterday which could be making her feel little bit lightheaded today. She had a recent lab draw and MRI of her brain. She reports that her primary care physician was looking for a seizure on the MRI. PFSH PFSH Medical History no medical history Allergy/AdvReac Type Severity Reaction Status Date / Time No Known Allergies Allergy Verified 10/10/22 12:01 Family History no significant family his Surgical History no surgical history Social History Smoking Status: Never smoker ROS ROS ED Constitutional Constitutional ED: Denies chills or fever(s) Eyes Eyes: Denies change in vision or diplopia ENT ENT ED: Denies rhinorrhea or sore throat Cardiovascular Cardiovascular: Denies chest pain or palpitations Respiratory/Chest Respiratory/Chest: Denies cough or dyspnea Gastrointestinal Gastrointestinal: Reports nausea; Denies vomiting Genitourinary Genitourinary ED: Denies dysuria or hematuria Musculoskeletal Musculoskeletal: Denies arthralgias or back pain Integumentary Denies abscess or Abrasions Neurologic Neurologic: Reports headache(s) Psychiatric Psychiatric: Denies anxiety or depression EXAM Physical Exam Const Vital Signs: 10/10/22 11:57 10/10/22 12:21 10/10/22 14:09 Temperature 97.8 F Temperature Source Temporal Pulse Rate 82 75 Respiratory Rate 16 20 H Respiratory Effort Normal Respiratory Pattern Normal Blood Pressure 149/82 H 122/70 H Blood Pressure Mean 104 87 Pulse Ox 99 100 Oxygen Delivery Method Room Air Room Air Positive well nourished HEENT Reports moist mucous membranes and dry mucous membranes Mouth ED: Yes dry mucous membranes Mouth: dry mucous membranes Eyes PERRL and EOMs intact bilaterally Chest Wall inspection of chest normal and palpation of chest normal Resp normal respiratory effort and clear to auscultation bilaterally Cardio regular rate and regular rhythm GI normal to inspection, nondistended, normoactive bowel sounds Neuro oriented x3 and CN's II-XII intact bilaterally Sensorium / Orientation: alert Motor Exam: strength 5/5 throughout Psych mental status grossly normal Skin no rashes or lesions noted and no wounds MDM MDM MDM Narrative Medical decision making narrative: Dr. 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 Her vital signs are stable she is afebrile. I am able to elicit some of the nausea and dizziness with Kendra- Hallpike although she does not have any nystagmus. She states she has had a history of this for about a year and nobody has suspected may be a benign positional vertigo. She states she is never heard that work. She also states that she had an MRI of her brain to look for seizures. I cannot visualize this since it was done in the facility. Patient treated with meclizine and Phenergan. On reevaluation at 2:10 PM she is feeling improved. With a prescription for these medications and she will follow-up with ENT. Impression: 1. Vertigo 2. Nausea Lab Data Attestation: I reviewed the patient's lab results. Discharge Plan Triage Chief Complaint: Dizziness Other Complaint: Nausea/Vomiting ED Provider: Justin Edge Dx/Rx/DC Orders Primary Care Provider: Mc Millan Referrals: Mc Millan MD [Primary Care Provider] -
[2022-10-10] MEDS: Meclizine HCl 25 MG Tablet PO (12:47)
[2022-10-10] MEDS: proMETHazine 25 MG Tablet PO (12:48)
[2022-10-10 14:09] VITALS: BP 122/70; PULSE 75; RESP 20; O2SAT 100
== END 2022-10-10 14:35 | disposition home or self-care (01) ==
PROVIDERS: Emergency Provider Student in an Organized Health Care Education/Training Program; PCP Family Medicine; Visit Provider Student in an Organized Health Care Education/Training Program
DX: R42 Dizziness and giddiness (principal); R11.2 Nausea with vomiting, unspecified; R51.9 Headache, unspecified
CPT/HCPCS: 99284

== ENCOUNTER 2022-11-18 18:56 | Emergency (ER) | payer OTHER, SELFPAY ==
[2022-11-18 18:57] VITALS: BP 131/101; PULSE 66; RESP 15; TEMP 36.1; O2SAT 98; BMI 33.6
[2022-11-18 19:11] VITALS: BP 124/74; PULSE 88; RESP 17; TEMP 37.1; O2SAT 98
--- NOTE | 2022-11-18 19:20 | ED.VIS.FEGU ---
HPI HPI - Female History of Present Illness Chief Complaint: Complaint Informant: patient Associated Symptoms Associated Symptoms: Positive for Dysuria and Frequency Narrative Narrative: 27-year-old female history of prior UTIs. Dysuria several days ago went to the [facility] urgent care was told she had a UTI and was started on Keflex twice daily. She started on Saturday she so far had 5 dosages. States she is not improving now has bilateral flank pain. No history of kidney stones. No fever. No vomiting. She has had some loose stools and intermittent constipation. Just ended her last menstrual period. Prior similar symptoms: Yes Recent Illness/Hospitalization: No PFSH PFSH Medical History no medical history no medical history Home Medications meclizine 25 mg tablet 25 mg PO TID PRN dizziness #30 tabs 10/10/22 [Rx Last Taken Unknown] meclizine 25 mg tablet 25 mg PO TID PRN nausea and vomiting #14 tabs 10/10/22 [Rx Last Taken Unknown] Allergy/AdvReac Type Severity Reaction Status Date / Time No Known Allergies Allergy Verified 11/18/22 18:57 Social History Smoking Status: Never smoker ROS ROS ED ROS Narrative Dysuria, flank pain and nausea. Review of Systems ROS Unobtainable: Denies due to encephalopathy Constitutional Constitutional ED: Denies chills or fever(s) Eyes Eyes: Denies blurry vision ENT ENT ED: Denies ear pain Cardiovascular Cardiovascular: Denies chest pain or palpitations Respiratory/Chest Respiratory/Chest: Denies cough or dyspnea Gastrointestinal Gastrointestinal: Reports abdominal pain and nausea; Denies constipation, diarrhea, melena or vomiting Genitourinary Genitourinary ED: Reports dysuria Musculoskeletal Musculoskeletal: Denies arthralgias Integumentary Denies abscess Neurologic Neurologic: Denies headache(s) Psychiatric Psychiatric: Denies anxiety Endocrine Endocrinology: Denies heat intolerance Hematologic/Lymphatic Hematologic/Lymphatic: Denies easy bleeding Allergic/Immunologic Allergic/Immunologic ED: Denies mouth swelling or tongue swelling EXAM Physical Exam Narrative Exam Narrative: Well-appearing 27-year-old female. Vital signs stable afebrile. H EENT exam unremarkable. Moist Riis membranes. Neck nontender no lymphadenopathy. Lungs clear to auscultation bilaterally. Heart regular rhythm rate about 80 no murmur. Abdomen soft nontender, nondistended, normal bowel sounds without peritoneal signs. Right upper and right lower quadrants are unremarkable. Back nontender. No CVA tenderness. Moving all 4 extremities. Calves are nontender without edema or cords. Neurologically she is awake and alert with no focal motor deficits. Benign exam. Const Vital Signs: 11/18/22 18:57 11/18/22 19:11 11/18/22 19:11 Temperature 97 F L 98.8 F 98.8 F Temperature Source Temporal Temporal Temporal Pulse Rate 66 88 88 Respiratory Rate 15 17 17 Blood Pressure 131/101 H 124/74 H 124/74 H Blood Pressure Mean 111 90 90 Pulse Ox 98 98 98 Oxygen Delivery Method Room Air Room Air Room Air Positive well nourished, well developed and obese; Negative for cachectic, contractures or unkempt General Appearance ED: well developed and NAD; Negative for unkempt, cachectic, contractures, odor of alcohol detected or pallor Nutritional Appearance: obese; Negative for cachectic HEENT Reports moist mucous membranes; Denies dry mucous membranes Negative for trauma or tenderness Mouth ED: No dry mucous membranes Mouth: No dry mucous membranes Eyes PERRL and EOMs intact bilaterally General Eye ED: Negative for pale conjunctiva or scleral icterus Neck no lymphadenopathy, supple and no JVD General: Negative for other Thyroid: Negative for tender Lymph Lymphatic: Negative for other Chest Wall inspection of chest normal and palpation of chest normal Chest: Negative for other Resp normal respiratory effort and clear to auscultation bilaterally Effort and Inspection: Negative for pain with movement Auscultation: Negative for rales, rhonchi or wheezes Cardio regular rate, regular rhythm, S1 normal heart sound, no murmurs and no JVD Rate: Negative for bradycardia or tachycardic Rhythm: Negative for abnormal rhythm GI normal to inspection, nondistended, normoactive bowel sounds, soft to palpation, non-tender, non-distended and no masses Auscultation: normoactive bowel sounds Palpation: Negative for tender, guarding or rigid Back/Spine no CVA tenderness General Back: Negative for CVA tenderness Cervical Spine: Negative for cervical spine tenderness Thoracic Spine / Upper Back: Negative for thoracic spinal tenderness Lumbar Spine / Lower Back: Negative for lumbar spinal tenderness Sacrum: Negative for other Extremity normal to inspection and full ROM General Extremety ED: Negative for edema or tenderness General Extremity: Negative for edema Neuro oriented x3 and CN's II-XII intact bilaterally Sensorium / Orientation: alert, oriented to person, oriented to place and oriented to time; Negative for confused, lethargic or stuporous Motor Exam: strength 5/5 throughout; Negative for general weakness or strength abnormal Psych mental status grossly normal Appearance: Negative for unkempt Attitude: No agitated Speech: No other Mood & Affect: Negative for depressed, anxious or tearful Skin no rashes or lesions noted and no wounds General Skin Exam: Negative for jaundice or pallor Rashes: No rashes noted Trauma: Negative for other MDM MDM MDM Narrative Medical decision making narrative: 27-year-old possible UTI. States when they checked her last urine they started on Keflex twice daily for 5 days. Now she has flank pain. UA will be obtained. It only she needs labs. Her last blood sugar was elevated we will check it today. She has no history of diabetes. Exam is benign. Repeat exam patient doing well. We discussed her lab test. Her urine is clean today. I told her she must not finish antibiotic she is on but is no signs of infection right now. She also showed me her recent labs from the [facility]. Her hemoglobin A1c was normal. Her chemistries and blood counts were unremarkable. She will follow-up. Lab Data Attestation: I reviewed the patient's lab results. Lab results narrative: Blood sugar equals 75. Urinalysis shows no acute abnormality. No nitrates. No white or red cells. No bacteria. Labs: Laboratory Results - last 24 hr 11/18/22 11/18/22 19:30 19:33 Urine Color Yellow Urine Clarity Clear Urine pH 6.0 Ur Specific [place] 1.015 Urine Protein Negative Urine Glucose (UA) Normal Urine Ketones 50 H Urine Occult Blood Negative Urine Nitrite Negative Urine Bilirubin Negative Urine Urobilinogen Normal Ur Leukocyte Esterase Negative Urine RBC 0 SEEN Urine WBC 0-5 SEEN Ur Squamous Epith Cells 0 SEEN Urine Bacteria 0 SEEN Urine Mucus 0 SEEN POC Glucose 75 Discharge Plan Triage Chief Complaint: Complaint ED Provider: Doroteo Solomon Dx/Rx/DC Orders Clinical Impression: Dysuria Prescriptions: No Action meclizine 25 mg tablet 25 mg PO TID PRN (Reason: nausea and vomiting) Qty: 14 0RF meclizine 25 mg tablet 25 mg PO TID PRN (Reason: dizziness) Qty: 30 0RF Primary Care Provider: Mc Millan Referrals: Mc Millan MD [Primary Care Provider] - 1 Week if not improving Activity Restrictions/Additional Instructions: Plenty of fluids. Finish your current antibiotic. [facility] not [facility]. They can always prescribe you a glucometer to check your blood sugars. Your recent [facility] and labs and the blood sugar today were unremarkable. Disposition Disposition: Home, Self Care
[2022-11-18 19:32] LABS: Bacteria 0 SEEN /hpf (None Seen); Mucous, Urine 0 SEEN /hpf (<or=2+); Red Blood Cells-Urine 0 SEEN /hpf (0-5); Squamous Epithelial Cells - UA 0 SEEN /hpf (5-10)
[2022-11-18 19:50] LABS: Color, Urine Yellow (Yellow); Glucose, Dipstick Normal (Normal); Ketone-Dipstick 50 mg/dl (Negative); Leukocyte Esterase-Dipstick Negative /ul (Negative); Nitrite-Dipstick Negative (Negative); Occult Blood-Urine Negative /ul (Negative); Protein-Dipstick Negative (Negative); Specific Gravity, Urine 1.015 (1.002-1.030); Urine Bilirubin Dipstick Negative (Negative); Urine Clarity Clear (Clear); Urine Urobilinogen Normal (Normal)
[2022-11-18 19:56] LABS: Bedside Glucose 75 mg/dL (74-106)
[2022-11-18 19:58] LABS: White Blood Cells 0-5 SEEN /hpf (0-5)
[2022-11-18 20:13] VITALS: BP 117/67; PULSE 80; RESP 14; TEMP 36.6; O2SAT 99
== END 2022-11-18 20:22 | disposition home or self-care (01) ==
PROVIDERS: Emergency Provider Emergency Medicine; PCP Family Medicine; Visit Provider Emergency Medicine
DX: R30.0 Dysuria (principal); R10.9 Unspecified abdominal pain; R73.9 Hyperglycemia, unspecified; R35.0 Frequency of micturition; E66.9 Obesity, unspecified
CPT/HCPCS: 81001; 82962; 99282

== ENCOUNTER 2023-08-25 22:09 | Emergency (ER) | payer OTHER, SELFPAY ==
[2023-08-25 22:11] VITALS: BP 122/81; PULSE 73; RESP 16; TEMP 36.1; BMI 35.3
[2023-08-25 22:13] VITALS: BP 122/81; PULSE 73; RESP 16; TEMP 36.1
--- NOTE | 2023-08-25 22:36 | CT_ITS ---
INDICATION: injury EXAMINATION: CT BRAIN - CT Head or Brain W/O Contrast Injection TECHNIQUE: Multiple axial images were obtained of the head without intravenous contrast. A radiation dose optimization technique was used for this scan. IV Contrast dosage and agent: None. COMPARISON: None FINDINGS: BRAIN PARENCHYMA: No intra- or extra-axial hemorrhage. No evidence of acute infarct. No intracranial mass or mass effect. There is preservation of the benitez/white matter interface. Posterior fossa structures are unremarkable. CSF SPACES: Appropriate for age. No hydrocephalus. Basal cisterns are patent. CALVARIUM, SKULL BASE, PARANASAL SINUSES AND MASTOID AIR CELLS: Mild paranasal sinus mucosal thickening. No discrete lytic or blastic abnormalities. ORBITS: Both globes, extraocular muscles, optic nerves and retrobulbar fat appear unremarkable. CT/Brain/Head without Contrast IMPRESSION: No acute intracranial hemorrhage. No fracture. Electronically Signed: Landen Tan MD at 22:59 EDT ,
--- NOTE | 2023-08-25 22:37 | EDS_ITS ---
HPI History of Present Illness Chief Complaint: Back Detail of Chief Complaint: Fall Informant: patient Narrative Narrative: Patient presents after a fall at work. She was carrying dirty dishes when she fell on wet floor landing on her back. She complains of a headache and states she was nauseated earlier. She complains of pain over her sacrum and tailbone. She is a few small lacerations noted to her hands. She states her tetanus is up-to-date. She denies possibility of . PFSH PFSH Medical History no medical history no medical history Home Medications sertraline 100 mg tablet 100 mg PO DAILY 08/25/23 [History Last Taken Unknown] naproxen 500 mg tablet (Naprosyn) 500 mg PO BID PRN pain #20 tabs 08/26/23 [Rx Last Taken Unknown] Allergy/AdvReac Type Severity Reaction Status Date / Time No Known Allergies Allergy Verified 08/25/23 22:10 Social History Smoking Status: Never smoker ROS ROS ED Constitutional Constitutional ED: Denies chills or fever(s) Eyes Eyes: Denies change in vision ENT ENT ED: Denies rhinorrhea or sore throat Cardiovascular Cardiovascular: Denies chest pain or palpitations Respiratory/Chest Respiratory/Chest: Denies cough or dyspnea Gastrointestinal Gastrointestinal: Denies abdominal pain, nausea or vomiting Musculoskeletal Musculoskeletal: Reports back pain Integumentary Reports other Details: Superficial lacerations ; Denies Abrasions or rash Neurologic Neurologic: Reports headache(s); Denies weakness Psychiatric Psychiatric: Denies anxiety or depression Allergic/Immunologic Allergic/Immunologic ED: Denies lip swelling or urticaria EXAM Physical Exam Const Vital Signs: 08/25/23 22:11 08/25/23 22:13 Temperature 96.9 F L 96.9 F L Temperature Source Temporal Temporal Pulse Rate 73 73 Respiratory Rate 16 16 Blood Pressure 122/81 H 122/81 H Blood Pressure Mean 94 94 Positive well nourished and well developed General Appearance ED: well developed Eyes PERRL and EOMs intact bilaterally Neck Neck Narrative: No C-spine tenderness. Chest Wall inspection of chest normal and palpation of chest normal Resp normal respiratory effort and clear to auscultation bilaterally Cardio regular rhythm Rate: regular rate GI non-tender Palpation: soft Back/Spine Back/Spine Narrative: No tenderness of patient of the lumbar spine. Mild tenderness over the posterior sacrum. Extremity Extremity Narrative: Left hand: Small, 2 mm laceration to the radial side of the nail. Minimal bleeding. There is a 1 cm laceration over the middle phalanx of the left index finger on the extensor surface. Right hand: Small, 2 mm laceration to the PIP joint of the fourth finger on the extensor surface. No active bleeding. Full range of motion. Neuro oriented x3 and moves all extremities Psych mental status grossly normal Skin Skin Narrative: Superficial lacerations to the hands as noted above MDM MDM MDM Narrative Medical decision making narrative: Wounds to the hands are cleansed and sealed with Dermabond. Patient will be sent for head CT given her head injury and nausea with headache. X-rays of the sacrum and coccyx obtained given her pain following her fall. Radiography Diagnostic Testing: Clinical Impression(s) from Imaging Studies Brain CT 08/25/23 22:36 IMPRESSION: No acute intracranial hemorrhage. No fracture. Electronically Signed: Landen Tan MD at 22:59 EDT , Lumbar Spine X-Ray 08/25/23 22:50 IMPRESSION: No evidence of lumbar spinal fracture or spondylolisthesis. Electronically Signed: Landen Tan MD at 23:07 EDT , Sacrum and Coccyx X-Ray 08/25/23 22:50 IMPRESSION: Sacral lucency on the lateral view only. Nondisplaced fracture is not excluded. Consider additional imaging as clinically warranted. There is no angulation. Electronically Signed: Landen Tan MD at 23:10 EDT , Treatment and Re-Evaluation Narrative: CT scan of the head reveals no acute findings. X-ray of the sacrum and coccyx per my interpretation feels no obvious displaced fractures. Radiology does comment that on the lateral view of the sacrum there is a line across the sacrum that may represent a fracture. In light of her pain and being that this is a work related injury, CT scan of the pelvis is obtained to evaluate for sacral fracture. No evidence of fracture is noted on CT imaging. Test results d iscussed with the patient. She has been given Naprosyn here for pain will be given a prescription for the same. Discharge Plan Triage Chief Complaint: Back ED Provider: Sima Galeas Dx/Rx/DC Orders Clinical Impression: Laceration, CHI (closed head injury), Fall, Contusion of sacrum Instructions: ED Coccyx or Sacrum Contusion, ED Head Injury (Adult), ED Laceration: Skin Adhesive Prescriptions: New naproxen [Naprosyn] 500 mg tablet 500 mg PO BID PRN (Reason: pain) Qty: 20 0RF No Action sertraline 100 mg tablet 100 mg PO DAILY Patient Comments: TAKE 1 TABLET BY MOUTH EVERY DAY Stand Alone Forms: Work Status Form Primary Care Provider: Mc Millan Referrals: [facility] [Group of Physicians] - 3-5 Days Mc Millan MD [Primary Care Provider] - Disposition Disposition: Home, Self Care
--- NOTE | 2023-08-25 22:50 | RAD_ITS ---
INDICATION: injury EXAMINATION/TECHNIQUE: X-RAY - XR Sacrum/Coccyx Min 2 Views COMPARISON: None. FINDINGS: SACRUM/COCCYX: This patient has a obliquely oriented lucency on lateral view only through the lower sacrum at S4. No significant angulation. Note that overlapping bowel shadows may however obscure fine detail in the frontal view. SACRO-ILIAC JOINTS: The articular structures are unremarkable. SOFT TISSUES: No soft tissue swelling or gas. RAD/Sacrum-Coccyx min 2 Views IMPRESSION: Sacral lucency on the lateral view only. Nondisplaced fracture is not excluded. Consider additional imaging as clinically warranted. There is no angulation. Electronically Signed: Landen Tan MD at 23:10 EDT ,
--- NOTE | 2023-08-25 22:50 | RAD_ITS ---
INDICATION: injury EXAMINATION/TECHNIQUE: X-RAY - XR Spine Lumbar 2 Views COMPARISON: None. FINDINGS: VERTEBRAE: Slight anterior osteophyte formation L1-L4. Preserved vertebral body height. No fracture. No spondylolisthesis. Preservation of the normal lumbar lordosis. Slight lower lumbar spine facet arthropathy. DISCS: Disc spaces are maintained. INCLUDED ABDOMEN: Included bowel gas pattern is non-obstructive. RAD/Lumbar Spine 2 or 3 Views IMPRESSION: No evidence of lumbar spinal fracture or spondylolisthesis. Electronically Signed: Landen Tan MD at 23:07 EDT ,
--- NOTE | 2023-08-25 23:25 | CT_ITS ---
EXAM: CT PELVIS WITHOUT INTRAVENOUS CONTRAST CLINICAL INDICATION: ? sacral fx on xray TECHNIQUE: Helically acquired images were obtained of the pelvis without intravenous contrast. This CT exam was performed using one or more of the following dose reduction techniques: automated exposure control, adjustment of the mA and/or kV according to patient size, and/or use of iterative reconstruction technique. RADIATION DOSE: Total DLP: 955.57 mGy-cm. COMPARISON: Sacral radiographs of this date. FINDINGS: BOWEL: Visualized large and small bowel loops are unremarkable. No bowel distention. No focal inflammatory change. APPENDIX: Normal. No evidence of acute appendicitis. INTRAPERITONEAL SPACE: Unremarkable. No ascites or other fluid collection. No free air. BLADDER: Unremarkable. REPRODUCTIVE: Uterus is normal in size. No adnexal mass. BONES/JOINTS: Sclerosis noted about the inferior SI joints, without periarticular erosions, consistent with osteitis condensans ilii, benign. SI joints are not abnormally widened. No suspicious lytic or blastic abnormality. No acute sacral fracture or other acute fracture is identified. No hip dislocation is noted. SOFT TISSUES: The visualized rectus and psoas muscles are symmetric. No hematoma is identified. No pelvic wall hernia. LYMPH NODES: Unremarkable. No enlarged lymph nodes. OTHER FINDINGS: The lower lumbar disc spaces are preserved. CT/Pelvis without IV Contrast IMPRESSION: No acute sacral fracture or other acute abnormality. Electronically Signed: Niles Hernandez MD at 0:15 EDT ,
[2023-08-25] MEDS: Naproxen 500 MG Tablet PO (23:42)
[2023-08-26 00:09] VITALS: BP 120/80; PULSE 70; RESP 16; O2SAT 97
== END 2023-08-26 00:33 | disposition home or self-care (01) ==
PROVIDERS: Emergency Provider Emergency Medicine; PCP Family Medicine; Visit Provider Emergency Medicine
DX: S61.411A Laceration without foreign body of right hand, initial encounter (principal); S09.90XA Unspecified injury of head, initial encounter; S61.412A Laceration without foreign body of left hand, initial encounter; S30.0XXA Contusion of lower back and pelvis, initial encounter; W01.0XXA Fall on same level from slipping, tripping and stumbling without subsequent striking against object, initial encounter; Y99.0 Civilian activity done for income or pay
CPT/HCPCS: 12001; 70450; 72100; 72192; 72220; 99283

== ENCOUNTER 2024-07-16 16:15 | Emergency (ER) | payer BC, SELFPAY ==
[2024-07-16 16:16] VITALS: BP 141/91; PULSE 71; RESP 17; TEMP 36.1; O2SAT 100; BMI 37.3
--- NOTE | 2024-07-16 16:30 | RAD_ITS ---
INDICATION: chest pain EXAMINATION/TECHNIQUE: X-RAY - XR Chest 1 View COMPARISON: No previous relevant examinations available for comparison.. FINDINGS: LIFE-SUPPORT AND LINES: 1. None HEART AND VESSELS: The cardiac silhouette, pulmonary vasculature have normal appearance. No evidence of congestive failure. LUNGS AND PLEURAL SPACES: Lungs are clear. No focal infiltrate, consolidation or effusions. No evidence of pneumothorax. No pulmonary mass is noted. MEDIASTINUM AND HILAR REGIONS: No masses adenopathy noted. No areas of calcification. Visualized upper airway is normal in position. BONY ELEMENTS: No acute bony changes noted. RAD/Chest 1 View (Portable) IMPRESSION: 1. No evidence of acute cardiopulmonary process Electronically Signed: Sav Boss MD at 16:42 EDT ,
[2024-07-16 16:34] LABS: Absolute Neutrophil Count 5.2 X10^3/uL (2.0-7.7); Basophil# 0.03 X10^3/uL; Basophil% 0.4 % (0-1); Eosinophils% 2.3 % (0-5); Hematocrit 36.7 % (37-47); Hemoglobin 12.8 g/dL (12.0-15.0); Lymphocyte % 30.5 % (19-41); Mean Corp Hgb Conc 34.9 g/dL (32-36); Mean Corpuscular Hgb 28.8 pg (27.0-32.0); Mean Corpuscular Volume 82.7 fL (81-99); Mean Platelet Vol. 8.3 fl (6.2-12.0); Monocyte# 0.45 X10^3/uL; Monocyte% 5.3 % (0-10); NRBC Flagged by Analyzer 0 % (0-5); Neutrophil # 5.21 X10^3/uL (2.7-7.7); Neutrophil % 61.1 % (47-70); Platelet Count 279 K/mm3 (150-450); RBC Distribution Width CV 12.4 % (11.6-14.6); RBC Distribution Width SD 37.6 fl (35.1-43.9); Red Blood Count 4.44 M/mm3 (4.2-5.4); White Blood Count 8.5 K/mm3 (4.4-11.0)
[2024-07-16 16:42] VITALS: O2SAT 96
[2024-07-16 16:43] VITALS: O2SAT 99
[2024-07-16 16:43] LABS: International Normalized Ratio 1.1; Prothrombin Time (Protime)PT. 14.5 SECONDS (11.7-14.9)
--- NOTE | 2024-07-16 17:06 | ED.VIS.DYS ---
HPI History of Present Illness Chief Complaint: Shortness of Breath Informant: patient Onset/Context/Timing Onset: Yesterday Context: gradual Timing: Continuous Quality: Positive for - (Heaviness) Worsened by: Nothing Relieved by: Nothing Associated Symptoms cough and ear pain; Negative for rhinorrhea, post nasal drip, fever, sore throat, subjective, chills, sweats, clear sputum, white sputum, yellow sputum or green sputum Narrative Narrative: Patient presents with shortness of breath and chest pain that began yesterday. Patient states her chest feels heavy. Patient admits to a cough but denies any sputum production. Patient also admits to some bilateral ear pain. Patient denies any sore throat or rhinorrhea. Patient denies any fevers or chills. Patient states her chest pain is over the substernal area. Patient states it does go into her back at times. Patient denies any nausea or vomiting. Patient denies any diaphoresis. Patient states she was recently started on a new control ring. [facility] Medical History Laceration without foreign body of unspecified hand, initial encounter Depression Home Medications ?Medication ?Instructions ?Recorded ?Last Taken ?Type sertraline 100 mg tablet 100 mg PO DAILY 08/25/23 Unknown History naproxen 500 mg tablet (Naprosyn) 500 mg PO BID PRN pain #20 tabs 08/26/23 Unknown Rx sertraline 50 mg tablet 150 mg PO DAILY 07/16/24 Unknown History Allergy/AdvReac Type Severity Reaction Status Date / Time No Known Allergies Allergy Verified 07/16/24 16:16 Surgical History No pertinent past surgical history no surgical history Social History Smoking Status: Never smoker alcohol intake: never substance use type: does not use ROS ROS ED Constitutional Constitutional ED: Denies chills or fever(s) Eyes Eyes: Denies blurry vision or change in vision ENT ENT ED: Reports ear pain bilateral; Denies rhinorrhea or sore throat Cardiovascular Cardiovascular: Reports chest pain; Denies palpitations Respiratory/Chest Respiratory/Chest: Reports cough and dyspnea Gastrointestinal Gastrointestinal: Reports nausea; Denies vomiting Genitourinary Genitourinary ED: Denies dysuria or hematuria Musculoskeletal Musculoskeletal: Reports back pain; Denies neck pain Integumentary Denies abscess or rash Neurologic Neurologic: Reports headache(s); Denies weakness Allergic/Immunologic Allergic/Immunologic ED: Denies mouth swelling or urticaria EXAM Physical Exam Const Vital Signs: 07/16/24 16:16 07/16/24 16:42 07/16/24 16:43 Temperature 97 F L Temperature Source Temporal Pulse Rate 71 Respiratory Rate 17 Respiratory Effort Non-Labored Short of Breath Respiratory Pattern Normal Blood Pressure 141/91 H Blood Pressure Mean 107 Pulse Ox 100 99 Oxygen Delivery Method Room Air Room Air Room Air 07/16/24 18:15 Temperature Temperature Source Pulse Rate 89 Respiratory Rate 14 Respiratory Effort Respiratory Pattern Blood Pressure 124/77 H Blood Pressure Mean 92 Pulse Ox 99 Oxygen Delivery Method Room Air Positive well nourished and well developed General Appearance ED: well developed and NAD HEENT Reports moist mucous membranes Neck supple, no meningeal signs and no JVD Resp normal respiratory effort and clear to auscultation bilaterally Cardio regular rate and regular rhythm GI non-tender and non-distended Palpation: soft Extremity normal to inspection General Extremety ED: Negative for edema or tenderness General Extremity: Negative for edema Neuro oriented x3, CN's II-XII intact bilaterally and no sensory deficits noted Liz Coma Scale: document GCS findings Spontaneous Obeys Commands Oriented 15 Sensorium / Orientation: alert Motor Exam: strength 5/5 throughout Psych mental status grossly normal MDM MDM MDM Narrative Medical decision making narrative: Differential diagnosis includes cardiac dysrhythmia, cardiac ischemia, electrolyte abnormality, pneumonia, pneumothorax, viral illness, pulmonary embolism, and anxiety. EKG will be obtained to assess for cardiac dysrhythmia and cardiac ischemia. Chest x-ray will be obtained to assess for pneumonia and pneumothorax. CBC will be obtained to assess for leukocytosis and anemia. Basic metabolic profile will be obtained to assess for electrolyte abnormality and renal function. D-dimer will be obtained to assess for pulmonary embolism. High-sensitivity troponin will be obtained to assess for cardiac ischemia. PT with INR will be obtained to assess for coagulopathy. COVID-19, influenza, and RSV PCR will be obtained to assess for viral illness. Lab Data Attestation: I reviewed the patient's lab results. Lab results narrative: CBC was reviewed and was within normal limits. PT with INR was reviewed and was within normal limits. High-sensitivity troponin was reviewed and was normal at less than 3. D-dimer was reviewed and was elevated at 1.07. Basic metabolic profile was reviewed and was within normal limits. Initial high-sensitivity troponin was reviewed and was less than 3. 2-hour repeat high-sensitivity troponin was reviewed and was less than 3. COVID-19 PCR was reviewed and was negative. Influenza PCR was reviewed and was negative for influenza A and influenza B. RSV PCR was reviewed and was negative. Labs: Laboratory Results - last 24 hr 07/16/24 07/16/24 16:22 18:34 WBC 8.5 RBC 4.44 Hgb 12.8 Hct 36.7 L MCV 82.7 MCH 28.8 MCHC 34.9 RDW Std Deviation 37.6 RDW Coeff of Janina 12.4 Plt Count 279 MPV 8.3 Immature Gran % (Auto) 0.400 Neut % (Auto) 61.1 Lymph % (Auto) 30.5 [place] % (Auto) 5.3 Eos % (Auto) 2.3 Baso % (Auto) 0.4 Absolute Neuts (auto) 5.2 Absolute Lymphs (auto) 2.60 Nucleated RBC % 0 PT 14.5 INR 1.1 D-Dimer Quant (PE/DVT) 1.07 H* Sodium 138 Potassium 3.6 Chloride 104 Carbon Dioxide 25.0 Anion Gap 9 BUN 15 Creatinine 0.82 Estim Creat Clear Calc 118.73 Est GFR (MDRD) Af Amer 108 Est GFR (MDRD) Non-Af 90 BUN/Creatinine Ratio 18.4 Glucose 91 Calcium 9.0 Troponin I High Sens < 3 L < 3 L Radiography Chest X-Ray - ED: 1 View, Read by ED Physician, Read by Radiologist and No Acute Disease CTA PE Study: No Evidence of PE and No Evidence of Dissection Diagnostic Testing: Clinical Impression(s) from Imaging Studies Chest X-Ray 07/16/24 16:30 IMPRESSION: 1. No evidence of acute cardiopulmonary process Electronically Signed: Sav Boss MD at 16:42 EDT , Chest CTA 07/16/24 17:59 IMPRESSION: undefined Portable 1 view chest x-ray was obtained. On my independent interpretation, lung foss are clear. There is normal cardiac silhouette. Bony thorax is normal. There is no acute process noted. Radiologist also interpreted the x-ray and agrees. CTA of the chest was obtained because of the elevated D-dimer. There is no evidence of pulmonary embolism or aortic dissection. There is no acute cardiopulmonary process noted. This was interpreted by the radiologist and was also independently reviewed by myself. EKG Initial EKG: Attestation: I personally reviewed and interpreted this EKG as follows: Interpretation: Sinus Rhythm (74) and No Acute Injury Pattern Comments: EKG was obtained. On my independent interpretation, it showed a normal sinus rhythm with a rate of 74. NM interval, QRS interval, and QTc intervals were all normal. Chambers was normal. There are no acute ST or T wave changes. Prior EKG tracings: available for review Prior: Unchanged (11/08/2018) Treatment and Re-Evaluation :: Patient was advised of her findings. Patient was advised that this may be a viral upper respiratory infection. Patient was instructed to follow-up with her primary care physician in 5 to 7 days. Patient was instructed to return if worse in any way. Patient understood and was agreeable with the plan. All questions were answered. Discharge Plan Triage Chief Complaint: Shortness of Breath ED Provider: Henrik Damon Dx/Rx/DC Orders Clinical Impression: Viral upper respiratory tract infection, Dyspnea Instructions: ED URI, Viral, No Abx (Adult) Prescriptions: No Action sertraline 100 mg tablet 100 mg PO DAILY Patient Comments: TAKE 1 TABLET BY MOUTH EVERY DAY naproxen [Naprosyn] 500 mg tablet 500 mg PO BID PRN (Reason: pain) Qty: 20 0RF sertraline 50 mg tablet 150 mg PO DAILY Primary Care Provider: Mc Millan Referrals: Mc Millan MD [Primary Care Provider] - 5-7 Days Print Language: Arabic Disposition Disposition: Home, Self Care
[2024-07-16 17:09] LABS: Anion Gap 9 (5-15); BUN 15 mg/dL (7-18); BUN/Creat Ratio 18.4 RATIO (10-20); Chloride 104 mmol/L (98-107); Creatinine, Serum 0.82 mg/dL (0.55-1.02); EST Glomerular Filtration Rate 90 mL/min (>60); Est Glom Filt Rate - Afr Amer 108 mL/min (>60); Estimated Creatinine Clearance 118.73 ml/min; Glucose 91 mg/dL (74-106); Potassium 3.6 mmol/L (3.5-5.1); Sodium Level 138 mmol/L (136-145); Troponin-I HS (w/2H Reflex) < 3 pg/mL (3.0-54.0)
[2024-07-16 17:58] LABS: D-Dimer Quantitative (DVT/PE) 1.07 FEU/ug/m (0.27-0.49)
--- NOTE | 2024-07-16 17:59 | CT_ITS ---
STUDY: CTA CHEST REASON FOR EXAM: Female, 28 years old. Elevated D-dimer RADIATION DOSAGE (If Supplied By Facility): CTDIvol = ( 12.36 ) mGy, DLP = ( 510.31 ) mGycm TECHNIQUE: The examination was performed with the intravenous administration of IV 100mL Isovue-370. Post-processing of the angiographic images was performed, with multiplanar reformation and 3D reconstruction. Individualized dose optimization techniques were used for this CT. COMPARISON: 11/08/2018 FINDINGS: Tubes and lines: 1. No life-support noted. CTA: PULMONARY ARTERIES: There is normal configuration and contrast opacification of pulmonary outflow tract, main pulmonary arteries, segmental and intersegmental pulmonary arteries bilaterally without evidence of intraluminal filling defects. AORTIC ARCH: The aortic arch and descending aorta have normal configuration. No evidence of dissection or aneurysmal dilatation. HEART: Cardiac contour is normal. No evidence pericardial effusion. No significant coronary vascular calcifications noted. CT CHEST: LUNGS: [Unremarkable. No mass. No consolidation. PLEURAL SPACES: Unremarkable, no effusion or pneumothorax.. MEDIASTINUM AND LYMPH NODES: Unremarkable. No significant adenopathy. BONES: Unremarkable ABDOMEN: Within normal limits. Other: None IMPRESSIONS: 1. No CTA evidence of pulmonary embolism. 2. No CTA evidence of aortic aneurysm or dissection 3. Normal CT appearance of the heart and pericardium. 4. No focal infiltrate consolidation or effusion noted. Electronically Signed: Sav Boss MD at 18:59 EDT , CT/CTA Chest W/WO Contrast IMPRESSION: undefined
[2024-07-16 18:15] VITALS: BP 124/77; PULSE 89; RESP 14; O2SAT 99
[2024-07-16 18:28] LABS: Reflex Troponin-HS? (from REC) Y
[2024-07-16 19:02] LABS: Troponin-I HS < 3 pg/mL (3.0-54.0)
[2024-07-16 19:25] VITALS: BP 117/60; PULSE 63; RESP 18; TEMP 36.4; O2SAT 99
== END 2024-07-16 19:25 | disposition home or self-care (01) ==
PROVIDERS: Emergency Provider Emergency Medicine; PCP Family Medicine; Visit Provider Emergency Medicine
DX: J06.9 Acute upper respiratory infection, unspecified (principal); R06.02 Shortness of breath
CPT/HCPCS: 71045; 71275; 80048; 84484; 85025; 85379; 85610; 87631; 93005; 99283; Q9967; A4216

== ENCOUNTER 2024-12-18 11:51 | Emergency (ER) | payer BC, SELFPAY ==
[2024-12-18 11:53] VITALS: BP 145/92; PULSE 94; RESP 16; TEMP 36.6; O2SAT 100; BMI 37.8
--- NOTE | 2024-12-18 12:33 | ED.RN ---
PT WAS AT WORK AND STARTING TO FEEL FLUSH AND LIKE SHE WAS GOING TO FAINT. PT HAS BEEN SEEN BY [facility] AND THEY STATED SHE HAD HIGH BP. PT MADE AN APPT IWTH HER PCP WHICH IS SCHEDULED TODAY AT 2:00PM. PT HAD HER THIRD EPISODE OF FEELING THIS WAY AND CAME OVER TO THE ER. PT UNSURE IF SHE SHOULD JUST GO TO HER DRS APPT OR HAVE TESTING HERE. BP IS 141/93.
[2024-12-18 13:34] VITALS: BP 141/93; PULSE 98; RESP 24; TEMP 36.6; O2SAT 99
--- NOTE | 2024-12-18 13:34 | EDS_ITS ---
HPI <ISRAEL Giron - Last Filed: 12/18/24 13:46> History of Present Illness Chief Complaint: Hypertension Narrative Narrative: Patient is a 29-year-old female with history of depression, presenting to the [facility] for 2 weeks of intermittent dizziness. Patient states sometimes when it comes on, she feels nauseous, feels like she might pass out. Patient called her PCP, and has not appointment today at 2 PM. Patient states she had a episode today at roughly noon at work, and is here for evaluation. She did hear at urgent care that her blood pressure was high. She is this was a concern. [facility] <ISRAEL Giron - Last Filed: 12/18/24 13:46> [facility] Medical History Laceration without foreign body of unspecified hand, initial encounter Depression Home Medications ?Medication ?Instructions ?Recorded ?Last Taken ?Type sertraline 50 mg tablet 150 mg PO DAILY 07/16/24 12/18/24 History Lactobacillus acidophilus 10 100 mmu cells PO DAILY 12/18/24 12/18/24 History billion cell capsule (NewFlora) cholecalciferol (vitamin D3) 125 125 mcg PO DAILY 12/18/24 12/18/24 History mcg (5,000 unit) capsule magnesium 250 mg tablet 250 mg PO DAILY 12/18/24 12/18/24 History noncgnou-bkl-ceysi acid 200 1 tab PO DAILY 12/18/24 Unknown History mcg-collagen, hydrolyzed 25 mg chew tablet (Women's Multivitamin with Collagen) vitamin B complex 1 cap PO DAILY 12/18/24 12/18/24 History Allergy/AdvReac Type Severity Reaction Status Date / Time No Known Allergies Allergy Verified 12/18/24 12:36 Surgical History No pertinent past surgical history Social History Smoking Status: Never smoker alcohol intake: never substance use type: does not use ROS <ISRAEL Giron - Last Filed: 12/18/24 13:46> ROS ED ROS Narrative Constitutional: Negative for fever, chills, weight loss, weakness Eyes: Negative for vision loss, vision change, double vision ENT: Negative for any sore throat, ear pain, congestion Cardiovascular: Negative for any chest pain, tightness, palpitations Respiratory: Negative for any cough, sputum production, hemoptysis, dyspnea, dyspnea on exertion, orthopnea Gastrointestinal: Negative for any abdominal pain, vomiting, diarrhea, constipa tion, blood in stool, blood in vomit. Positive for nausea : Negative for any urinary frequency, dysuria, retention, blood in urine Muscle skeletal: Negative for any neck pain, back pain Neurological: Negative for any headache, syncope. Positive for dizziness Skin: Negative for any rashes, itching, abrasions, lacerations Psychiatric: Negative for any depression, anxiety, stress, suicidal ideation, homicidal ideation Hematologic: Negative for any excessive bruising, easy bleeding EXAM <ISRAEL Giron - Last Filed: 12/18/24 13:46> Physical Exam Narrative Exam Narrative: Vital signs reviewed. HEET: Head normocephalic atraumatic, TMs clear bilaterally. Posterior pharynx is clear, moist mucous membranes. Nares clear bilaterally. Neck: Supple with no lymphadenopathy or tenderness. No signs of meningismus. Cardiac: Regular rate and rhythm no murmurs gallops or rubs, equal peripheral pulses bilaterally. Respiratory: Lungs clear to auscultation bilaterally. No chest tenderness. Abdomen: Soft, nontender, nondistended. No abdominal bruit or pulsatile masses. No hepatosplenomegaly Extremities: No peripheral edema, no signs of gross trauma or deformity. Active full range of motion of all extremities. Neuro: Cranial nerves II through XII intact, no focal neurological deficits. Skin: Clean dry and intact with no rash, purpura, petechiae, vesicles or pustules. Backs/flank: No CVA tenderness, no midline spinal tenderness, no deformity. Psych: Normal mood and affect. No SI, HI or acute psychosis. Const Vital Signs: 12/18/24 11:53 12/18/24 12:29 Temperature 97.8 F Temperature Source Temporal Pulse Rate 94 Respiratory Rate 16 Respiratory Effort Normal Respiratory Pattern Normal Blood Pressure 145/92 H Blood Pressure Mean 109 Pulse Ox 100 <Dr. Nathalie Nelson DO - Last Filed: 12/20/24 05:22> Physical Exam Const Vital Signs: 12/18/24 11:53 12/18/24 12:29 Temperature 97.8 F Temperature Source Temporal Pulse Rate 94 Respiratory Rate 16 Respiratory Effort Normal Respiratory Pattern Normal Blood Pressure 145/92 H Blood Pressure Mean 109 Pulse Ox 100 [facility] <ISRAEL Giron - Last Filed: 12/18/24 13:46> [facility] Treatment and Re-Evaluation :: Patient appears generally well, vital signs are stable, patient is nontoxic- appearing. ACS, PR, electrolyte abnormality, medication reaction Patient appears generally well, vital signs are stable, patient is nontoxic- appearing. Presenting to the emergency department for complaints of dizziness, feeling nauseous, near syncopal. I spoke with the patient at length, patient did tell me that she would like to go home and have this followed up outpatient. Patient does have an appoint with her doctor in an hour. I did offer laboratory values, EKG, possible imaging. She states that she understands if she does not want to pay anything more [id number]. She wants to be discharged and to follow-up outpatient today with her PCP. Her physical examination was unremarkable. Due to this is appropriate, again I did offer nabeel ting here, she did thankfully decline. Patient will follow-up outpatient. <Dr. Nathalie Nelson DO - Last Filed: 12/20/24 05:22> [facility] Treatment and Re-Evaluation :: Patient appears generally well, vital signs are stable, patient is nontoxic- appearing. ACS, PR, electrolyte abnormality, medication reaction Patient appears generally well, vital signs are stable, patient is nontoxic- appearing. Presenting to the emergency department for complaints of dizziness, feeling nauseous, near syncopal. I spoke with the patient at length, patient did tell me that she would like to go home and have this followed up outpatient. Patient does have an appoint with her doctor in an hour. I did offer laboratory values, EKG, possible imaging. She states that she understands if she does not want to pay anything more [id number]. She wants to be discharged and to follow-up outpatient today with her PCP. Her physical examination was unremarkable. Due to this is appropriate, again I did offer testing here, she did thankfully decline. Patient will follow-up outpatient. I have personally performed a face to face assessment of the patient and have reviewed the TERRELL Note. I performed a substantive portion of the visit including all aspects of the following. My cason findings include: History is patient is a 29-year-old female presenting for recurrent episode of dizziness and near syncope. Patient states she has been having intermittent episodes for the past 2 weeks. She another episode today which is a puncture come to the emergency room. Patient states symptoms worse when she stands up and on all the time. She notes she has been trying to drink more fluids. Elvira pascal went to urgent care after an episode today and they recommend she came to the emergency room. At that time her blood pressure was elevated. Upon arrival to the emergency room she found out that she has a $600 co-pay. She states she has appointment see her PCP at 2 PM today. She now states that she would prefer to have her workup done outpatient. Patient denies any chest pain or difficulty breathing. Denies any new swelling of her legs. Is not on any control currently but did have what sounds like a NuvaRing that she most recently removed 4 days ago. Denies any issue of DVT or PE. Patient is declining further workup. Medical screening exam does not show any acute emergency. I did offer EKG at a minimum or orthostatics given her symptoms. Again patient declined. Patient is acting appropriate has capacity to declined. She will follow-up with her primary care doctor as scheduled later today. She verbalized agreement understand with this. Other additions or changes: [None] Discharge Plan Triage Chief Complaint: Hypertension ED Midlevel Provider: Ham Canales ED Provider: Nathalie Nelson Dx/Rx/DC Orders Clinical Impression: Dizziness Instructions: Dizziness Fainting Causes Prescriptions: No Action magnesium 250 mg tablet 250 mg PO DAILY vitamin B complex Capsule 1 cap PO DAILY cholecalciferol (vitamin D3) 125 mcg (5,000 unit) capsule 125 mcg PO DAILY Women's Multivitamin Collagen 200 mcg- 25 mg tablet,chewable 1 tab PO DAILY NewFlora 10 billion cell capsule 100 mmu cells PO DAILY sertraline 50 mg tablet 150 mg PO DAILY Primary Care Provider: Mc Millan Referrals: Mc Millan MD [Primary Care Provider] - Activity Restrictions/Additional Instructions: Please follow-up with your PCP. Print Language: Uruguayan Disposition Disposition: Home, Self Care Discharge Date/Time: 12/18/24 13:36
== END 2024-12-18 13:36 | disposition home or self-care (01) ==
PROVIDERS: Emergency Provider Emergency Medicine; PCP Family Medicine; Visit Provider Emergency Medicine
DX: R42 Dizziness and giddiness (principal); I10 Essential (primary) hypertension; F32.A Depression, unspecified; Z79.899 Other long term (current) drug therapy
CPT/HCPCS: 99282